=== PATIENT | male | born 1990 | race Caucasian/White ===

== ENCOUNTER 2017-09-03 15:32 | Inpatient (IN) | payer BC, SELFPAY ==
[2017-09-03 16:00] VITALS: PULSE 112; RESP 18; BMI 26.9
--- NOTE | 2017-09-03 16:21 | HP.PCM_ITS ---
Problem List (1) Acute opioid withdrawal Status: Acute (2) Heroin abuse Status: Chronic (3) Polysubstance abuse Status: Chronic (4) Nicotine abuse Status: Chronic (5) Hepatitis C Status: Chronic History of Present Illness Date of Admission: 09/03/17 Chief Complaint: heroin withdrawal The patient is a 26 year old M with a hx of heroin abuse and Hepatitis C who presents to the hospital via the medical stabilization program in acute heroin withdrawal. He last went through a rehab program in [place] in 2015 and relapsed soon after. He has been injective 1.5-2.0 grams per day IV in his arms and left neck. He last used 0.5 grams on 09/01/17 about 2200. He also smokes 1 ppd and desires a patch. He occasionally uses crack - last use 09/01/2017. He occsaionally uses benzos but has not done so for months. He rarely drinks. His current withdrawal symptoms include nausea, vomiting, shakes, anxiety, restless legs, leg cramps, abdominal pain, chills. He is requesting detox and plans to go from here to the [facility] program. He does have a hx of hep C and has never been treated. He does not take any medications. [] Past Medical History Past Medical History (Chronic Problems): Chronic Problems Heroin abuse (Chronic) Polysubstance abuse (Chronic) Nicotine abuse (Chronic) Hepatitis C (Chronic) Allergies No Known Allergies Allergy (Verified 09/03/17 16:03) Psychiatric History: No pertinent psych hx Lives: With Family Smoking Status: Current every day smoker Tobacco Use: Cigarettes Alcohol: Occasional Drugs: Cocaine, Heroin Review of Systems Constitutional: Denies: Chills, Fever, Weight Change HEENT: Denies: Head Aches, Sinus Congestion, Sinus Drainage Cardiovascular: Denies: Chest Pain, Palpitations Respiratory: Denies: Cough, Shortness of breath at rest, Sputum production Gastrointestinal: Denies: Abdominal Pain, Nausea, Vomiting Genitourinary: Denies: Dysuria Musculoskeletal: Denies: Joint Pain, Joint Tenderness Skin: Reports: Wounds - track gutierrez without acute inflammation BL arms and left neck. Denies: Rash Neurological: Denies: Numbness, Tingling, Focal weakness Psychiatric: Denies: Anxiety, Depression, Homicidal Ideations, Suicidal Ideations Hematologic/ Lymphatic: Denies: Easy Bruising, Easy Bleeding VTE Information - Inpt Only VTE Present on Admission: No VTE Mechan Device Prophylaxis: None VTE Pharm Prophylaxis ordered?: No Reason prophylaxis not ordered:: Procedure Not Indicated Patient Problems: Active and Suspected Problems Acute opioid withdrawal (Acute) - Physical Exam General: Alert, Oriented x3, Cooperative HEENT: Atraumatic, PERRLA, EOMI, Normocephalic Neck: Supple, No JVD, Negative Carotid Bruits Lungs: Clear to auscultation, Normal air movement Cardiovascular: Regular rate, No murmurs Abdomen: Bowel Sounds Present, Soft, Non Tender Extremities: No edema, Capillary Refill Less than 3 Seconds, - - BL track gutierrez no acute inflammation BL arms, left neck. mildly indurated. Skin: No rashes, No breakdown Musculoskeletal: No Tenderness to Palpation of Joints or Extremities Neurological: Cranial nerves II-XII grossly intact Psych/Mental Status: Normal Affect, Appropriate, Alert and oriented to time, place, person, mood and affect Weight: 78.018 kg Body Mass Index (BMI) 26.9 Assessment/Plan Active and Suspected Problems Acute opioid withdrawal (Acute) 1. Acute heroin withdrawal - initiate medical stabilization protocol. Current symptoms include anxiety, chills, leg pain and RLS, nausea, vomiting, diarrhea. 1.5-2.0 g / day IV user. No infected areas. Last use 0.5g 2200 on 09.01.2017. 2. Polysubstance abuse - nicotine (patch), crack, benzos. 3. Hep C - never treated. Will need to remain sober to pursue treatment. DVT ppx: early ambulation [facility] plannin program Medical stabilization day 1 . This patient was seen by Eduardo Casey PA-C under the supervision of Dr. Torres.
[2017-09-03 16:25] VITALS: BP 138/90; PULSE 115; RESP 18; TEMP 36.9; O2SAT 98
[2017-09-03 16:27] VITALS: BP 138/90; PULSE 115; RESP 18; TEMP 36.9
[2017-09-03] MEDS: Ibuprofen 600 MG Tablet PO (16:52)
[2017-09-03] MEDS: Dicyclomine 10 MG Capsule 20 MG PO (16:53)
[2017-09-03] MEDS: Buprenorphine HCl 2 MG TAB.SUBL SL (16:55)
[2017-09-03 17:08] LABS: Absolute Lymphocyte Count 1.39 X10^3/ul (0.83-4.51); Absolute Neutrophil Count 6.3 X10^3/uL (2.0-7.7); Basophil# 0.04 X10^3/uL; Basophil% 0.5 % (0-1); Eosinophil# 0.02 X10^3/uL; Eosinophils% 0.2 % (0-5); Hematocrit 44.7 % (40-54); Lymphocyte # 1.39 X10^3/ul (4.0); Lymphocyte % 17.1 % (19-41); Mean Corp Hgb Conc 35.8 g/gl (32-36); Mean Corpuscular Hgb 31.9 pg (27.0-32.0); Mean Corpuscular Volume 89.2 fL (80-94); Mean Platelet Vol. 10.5 fl (6.2-12.0); Monocyte# 0.43 X10^3/uL; Monocyte% 5.3 % (0-10); Neutrophil # 6.26 X10^3/uL (2.7-7.7); Neutrophil % 76.8 % (47-70); Platelet Count 277 K/mm3 (150-450); RBC Distribution Width CV 12.1 % (11.6-14.6); RBC Distribution Width SD 38.7 fl (35.1-43.9); Red Blood Count 5.01 M/mm3 (4.6-6.2); White Blood Count 8.2 K/mm3 (4.4-11.0)
[2017-09-03 17:21] LABS: POSITIVE COUNT NO; POSITIVE DIFFERENTIAL NO; POSITIVE MORPHOLOGY NO
[2017-09-03 17:51] LABS: AST(SGOT) 35 U/L (15-37); Alanine Aminotransfer ALT/SGPT 59 U/L (16-61); Alkaline Phosphatase 68 U/L (45-117); Anion Gap 8 (5-15); BUN 10 mg/dL (7-18); BUN/Creat Ratio 10.7 RATIO (10-20); Chloride 106 mmol/L (98-107); Creatinine, Serum 0.93 mg/dL (0.70-1.30); EST Glomerular Filtration Rate 105 mL/min (>60); Est Glom Filt Rate - Afr Amer 127 mL/min (>60); Estimated Creatinine Clearance 113.52 ml/min; Globulin 4.1 g/dL (2.2-4.2); Glucose 155 mg/dL (74-106); Lipase 51 U/L (73-393); Potassium 3.1 mmol/L (3.5-5.1); Protein, Total 8.1 g/dL (6.4-8.2); Sodium Level 137 mmol/L (136-145)
[2017-09-03 18:00] VITALS: BP 131/78; PULSE 99; RESP 18; TEMP 36.9; O2SAT 98
[2017-09-03 18:14] LABS: Alcohol, Blood (Medical)-Serum < 3.0 mg/dL
[2017-09-03] MEDS: Pramipexole Di-HCl 0.25 MG Tablet PO (20:56)
[2017-09-03] MEDS: traZODone 50 MG Tablet PO (20:56)
[2017-09-03] MEDS: QUEtiapine 25 MG Tablet PO (20:57)
[2017-09-03 21:00] VITALS: BP 134/86; PULSE 104; RESP 16; TEMP 37.1
[2017-09-04] MEDS: Buprenorphine HCl 2 MG TAB.SUBL SL ×4 (00:37→23:09)
[2017-09-04 00:40] VITALS: BP 135/89; PULSE 90; RESP 16; TEMP 36.9
[2017-09-04] MEDS: cloNIDine HCl 0.1 MG Tablet PO ×2 (04:33→07:49)
[2017-09-04 04:34] VITALS: BP 116/71; PULSE 66; RESP 16; TEMP 36.2
[2017-09-04] MEDS: Methocarbamol 750 MG Tablet PO (07:49)
[2017-09-04] MEDS: Thiamine Hydrochloride 100 MG Tablet PO (07:50)
[2017-09-04] MEDS: Multivitamins,Ther W-Minerals Tablet 1 TABLET PO (07:50)
[2017-09-04] MEDS: Folic Acid 1 MG Tablet PO (07:50)
[2017-09-04 07:55] VITALS: BP 122/65; PULSE 60; RESP 16; TEMP 36.8; O2SAT 97
[2017-09-04 11:27] LABS: HIV - WCH Non-Reactive (Nonreactive)
--- NOTE | 2017-09-04 12:05 | CHAPLAIN ---
Type of Pastoral Visit _x__ Initial Visit ___ Follow-up Visit ___ On-call Visit ___ General Patient Visit ___ Spiritual Assessment ___ Family Conference ___ Bereavement ___ Rapid Response ___ Code Blue ___ Other (describe below) Pastoral Care Referral From _x__ Patient ___ Family ___ Nurse ___ Physician ___ Varitypist ___ Parks Recreation Coordinator ___ Other (describe below) Sacrament/Intervention _x__ Active listening ___ Anointing ___ Restorationist ___ Bereavement ___ Communion _x__ Roya exploration ___ _x__ Life review _x__ Prayer ___ Reconciliation ___ Sacrament of Sick _x__ Supportive presence ___ Wedding ___ Other (describe below) Pastoral Comments
[2017-09-04 12:15] VITALS: BP 126/78; PULSE 86; RESP 16; TEMP 36.9
[2017-09-04] MEDS: hydrOXYzine PAM 25 MG Capsule 50 MG PO (12:19)
[2017-09-04 13:31] LABS: Amphetamine Urine VISTA NEGATIVE (<1000 ng/mL); Barbiturate Urine VISTA NEGATIVE (< 200 ng/mL); Benzodiazepine Urine VISTA NEGATIVE (< 200 ng/mL); Cocaine Urine VISTA POSITIVE (< 300 ng/mL); Ecstacy Urine VISTA NEGATIVE (< 500 ng/mL); Methadone Urine VISTA NEGATIVE (< 300 ng/mL); PCP Urine VISTA NEGATIVE (< 25 ng/mL); THC Urine VISTA POSITIVE (< 50 ng/mL); Vista UDS pH Range 6
--- NOTE | 2017-09-04 14:54 | PN_ITS ---
Patient Problems: Active and Suspected Problems Acute opioid withdrawal (Acute) Subjective: Patient resting comfortably in bed NAD. Withdrawal symptoms currently well controlled. Still somewhat restless and anxious. No irritation at injection points. No fever or chills. No nausea and vomiting so far today. - Physical Exam General: Alert, Oriented x3, Cooperative HEENT: Atraumatic, PERRLA, EOMI, Normocephalic Neck: Supple, No JVD, Negative Carotid Bruits Lungs: Clear to auscultation, Normal air movement Cardiovascular: Regular rate, No murmurs Abdomen: Bowel Sounds Present, Soft, Non Tender Extremities: No edema, Capillary Refill Less than 3 Seconds Skin: No rashes, No breakdown Musculoskeletal: No Tenderness to Palpation of Joints or Extremities Neurological: Cranial nerves II-XII grossly intact Psych/Mental Status: Normal Affect, Appropriate, Alert and oriented to time, place, person, mood and affect Vital Signs Temp Pulse Resp BP Pulse Ox 98.4 F 86 16 126/78 H 97 09/04/17 12:15 09/04/17 12:15 09/04/17 12:15 09/04/17 12:15 09/04/17 07:55 Oxygen Delivery Method Room Air Weight: 78.018 kg Body Mass Index (BMI) 26.9 Intake and Output for Last 24 Hours 09/02/17 09/03/17 09/04/17 23:59 23:59 23:59 Intake Total 1400 / 1400 400 / 400 Balance 1400 / 1400 400 / 400 Laboratory Tests Past 24 Hrs 09/03/17 09/03/17 09/03/17 16:50 16:50 16:50 WBC 8.2 RBC 5.01 Hgb 16.0 Hct 44.7 MCV 89.2 MCH 31.9 MCHC 35.8 RDW 12.1 RDW Differential 38.7 Plt Count 277 MPV 10.5 Immature Gran % (Auto) 0.100 Neut % (Auto) 76.8 H Lymph % (Auto) 17.1 L [place] % (Auto) 5.3 Eos % (Auto) 0.2 Baso % (Auto) 0.5 Absolute Neuts (auto) 6.3 Absolute Lymphs (auto) 1.39 Total Counted Not Reportable Sodium Potassium Chloride Carbon Dioxide Anion Gap BUN Creatinine Estim Creat Clear Calc Est GFR (MDRD) Af Amer Est GFR (MDRD) Non-Af BUN/Creatinine Ratio Glucose Calcium Total Bilirubin AST ALT Alkaline Phosphatase Total Protein Albumin Globulin Albumin/Globulin Ratio Lipase Urine Opiates Screen Urine Methadone Screen Ur Barbiturates Screen Ur Phencyclidine Scrn Ur Amphetamines Screen U Methamphetamin-MDMA U Benzodiazepines Scrn Urine Cocaine Screen U Cannabinoids Screen Ur Drug Screen Comment Ethyl Alcohol Hepatitis A IgM Ab Pending Hepatitis A Ab Total Pending Hep Bs Antigen Pending Hep B Core Total Ab Pending Hep B Core IgM Ab Pending Hepatitis C Comment Pending HIV 1&2 Antibody Non-Reactive 09/03/17 09/03/17 09/04/17 16:50 16:50 12:20 WBC RBC Hgb Hct MCV MCH MCHC RDW RDW Differential Plt Count MPV Immature Gran % (Auto) Neut % (Auto) Lymph % (Auto) [place] % (Auto) Eos % (Auto) Baso % (Auto) Absolute Neuts (auto) Absolute Lymphs (auto) Total Counted Sodium 137 Potassium 3.1 L Chloride 106 Carbon Dioxide 23.0 Anion Gap 8 BUN 10 Creatinine 0.93 Estim Creat Clear Calc 113.52 Est GFR (MDRD) Af Amer 127 Est GFR (MDRD) Non-Af 105 BUN/Creatinine Ratio 10.7 Glucose 155 H Calcium 9.0 Total Bilirubin 0.60 AST 35 ALT 59 Alkaline Phosphatase 68 Total Protein 8.1 Albumin 4.0 Globulin 4.1 Albumin/Globulin Ratio 1.0 Lipase 51 L Urine Opiates Screen POSITIVE H Urine Methadone Screen NEGATIVE Ur Barbiturates Screen NEGATIVE Ur Phencyclidine Scrn NEGATIVE Ur Amphetamines Screen NEGATIVE U Methamphetamin-MDMA NEGATIVE U Benzodiazepines Scrn NEGATIVE Urine Cocaine Screen POSITIVE H U Cannabinoids Screen POSITIVE H Ur Drug Screen Comment Ethyl Alcohol < 3.0 Hepatitis A IgM Ab Hepatitis A Ab Total Hep Bs Antigen Hep B Core Total Ab Hep B Core IgM Ab Hepatitis C Comment HIV 1&2 Antibody Medical Necessity - Tobacco Use Smoking Status: Current every day smoker Tobacco Use: Cigarettes Assessment/Plan Active and Suspected Problems Acute opioid withdrawal (Acute) 1. Acute heroin withdrawal - initiate medical stabilization protocol. Current symptoms include anxiety, restlessness. 1.5-2.0 g / day IV user. No infected areas. Last use 0.5g 2200 on 09.01.2017. 2. Polysubstance abuse - nicotine (patch), crack, benzos. 3. Hep C - never treated. Will need to remain sober to pursue treatment. Hep panel pending. 4. hypokalemia probably 2/2 vomiting/diarrhea - replete. 5. Hyperglycemia - check a1c. TB test ordered for 180 admittance. DVT ppx: early ambulation [facility] plannin program Medical stabilization day 2 of 4. This patient was seen by Eduardo Casey PA-C under the supervision of Dr. Cabral.
[2017-09-04 16:12] LABS: Hemoglobin A1c 4.9 % (4.2-6.3)
[2017-09-04 16:22] VITALS: BP 127/64; PULSE 77; RESP 16; TEMP 37.2
[2017-09-04 21:14] VITALS: BP 138/81; PULSE 84; RESP 16; TEMP 36.6
[2017-09-04] MEDS: Ibuprofen 600 MG Tablet PO (21:21)
[2017-09-04] MEDS: Pramipexole Di-HCl 0.25 MG Tablet PO (21:22)
[2017-09-04] MEDS: traZODone 50 MG Tablet PO (23:09)
[2017-09-05 04:10] LABS: HEPATITIS B SURFACE AG Negative (Negative); Hepatitis A IgM Antibody Negative (Negative); Hepatitis B Core AB IgM Negative (Negative); Hepatitis B Core Ab Total Positive (Negative); Hepatitis C Ab >11.0 s/co ratio (0.0-0.9)
[2017-09-05 05:23] VITALS: BP 114/66; PULSE 66; RESP 16; TEMP 36.4
[2017-09-05 06:21] LABS: Anion Gap 8 (5-15); BUN 13 mg/dL (7-18); BUN/Creat Ratio 14.5 RATIO (10-20); Calcium,Total 8.5 mg/dL (8.5-10.1); Chloride 109 mmol/L (98-107); EST Glomerular Filtration Rate 109 mL/min (>60); Est Glom Filt Rate - Afr Amer 132 mL/min (>60); Estimated Creatinine Clearance 117.31 ml/min; Glucose 94 mg/dL (74-106); Potassium 3.8 mmol/L (3.5-5.1); Sodium Level 140 mmol/L (136-145)
--- NOTE | 2017-09-05 06:59 | PCM.PROGNOTE ---
Patient Problems: Active and Suspected Problems Acute opioid withdrawal (Acute) Subjective: Afebrile, vital signs stable. Potassium is within normal limits today. HIV is nonreactive. Hepatitis panel is + for past exposure to A, B and C The hep B core antibody is + but the core IgM is negative. Hepatitis Bs AG is negative He has no complaints today. did not know that he was + for Hepatitis B. Objective: Alert and oriented ?3, no apparent distress, no tremors Lungs-clear to auscultation Heart-regular rate and rhythm, no murmur, no gallop, no rub No jaundice and no scleral icterus Abdomen-soft, nontender, nondistended, normal bowel sounds No petechiae, no areas of ecchymosis - Physical Exam Vital Signs Temp Pulse Resp BP Pulse Ox 97.5 F L 66 16 114/66 97 09/05/17 05:23 09/05/17 05:23 09/05/17 05:23 09/05/17 05:23 09/04/17 07:55 Oxygen Delivery Method Room Air Weight: 172 lb 0.004 oz Body Mass Index (BMI) 26.9 Intake and Output for Last 24 Hours 09/03/17 09/04/17 09/05/17 23:59 23:59 23:59 Intake Total 1400 / 1400 1200 / 1200 Balance 1400 / 1400 1200 / 1200 Laboratory Tests Past 24 Hrs 09/03/17 09/03/17 09/04/17 16:50 16:50 12:20 Sodium Potassium Chloride Carbon Dioxide Anion Gap BUN Creatinine Estim Creat Clear Calc Est GFR (MDRD) Af Amer Est GFR (MDRD) Non-Af BUN/Creatinine Ratio Glucose Hemoglobin A1c 4.9 Calcium Urine Opiates Screen POSITIVE H Urine Methadone Screen NEGATIVE Ur Barbiturates Screen NEGATIVE Ur Phencyclidine Scrn NEGATIVE Ur Amphetamines Screen NEGATIVE U Methamphetamin-MDMA NEGATIVE U Benzodiazepines Scrn NEGATIVE Urine Cocaine Screen POSITIVE H U Cannabinoids Screen POSITIVE H Ur Drug Screen Comment HIV 1&2 Antibody Non-Reactive 09/05/17 05:40 Sodium 140 Potassium 3.8 Chloride 109 H Carbon Dioxide 23.0 Anion Gap 8 BUN 13 Creatinine 0.90 Estim Creat Clear Calc 117.31 Est GFR (MDRD) Af Amer 132 Est GFR (MDRD) Non-Af 109 BUN/Creatinine Ratio 14.5 Glucose 94 Hemoglobin A1c Calcium 8.5 Urine Opiates Screen Urine Methadone Screen Ur Barbiturates Screen Ur Phencyclidine Scrn Ur Amphetamines Screen U Methamphetamin-MDMA U Benzodiazepines Scrn Urine Cocaine Screen U Cannabinoids Screen Ur Drug Screen Comment HIV 1&2 Antibody Medical Necessity - Tobacco Use Smoking Status: Current every day smoker Tobacco Use: Cigarettes Assessment/Plan Active and Suspected Problems Acute opioid withdrawal (Acute) Impressions 1. acute opiate withdrawal 2. polysubstance abuse 3. Hep C and Hep B positive. Has never been treated 4. tobacco dependence continue the [facility] protocol for opiate withdrawal I answered his questions about Hep B and C and advised him to always use condoms and NOT to share needles ever. I also advised that if he has been free of drugs for at least a year to follow up with a ID doctor for treatment. Code Visit Inpatient E&M: 11059 Subs Hosp L2
[2017-09-05] MEDS: Folic Acid 1 MG Tablet PO (07:52)
[2017-09-05] MEDS: Buprenorphine HCl 2 MG TAB.SUBL SL ×2 (07:53→20:15)
[2017-09-05] MEDS: Multivitamins,Ther W-Minerals Tablet 1 TABLET PO (07:53)
[2017-09-05] MEDS: Thiamine Hydrochloride 100 MG Tablet PO (07:53)
[2017-09-05 10:00] VITALS: BP 110/68; PULSE 57; RESP 18; TEMP 36.5
[2017-09-05 14:49] LABS: Hep B Surface Antibodies Reactive (.)
[2017-09-05 14:51] LABS: Hepatitis A AB, Total Positive (Negative)
[2017-09-05 15:17] VITALS: BP 144/85; PULSE 84; RESP 18; TEMP 37.1
--- NOTE | 2017-09-05 15:23 | CHAPLAIN ---
Type of Pastoral Visit ___ Initial Visit _x__ Follow-up Visit ___ On-call Visit ___ General Patient Visit ___ Spiritual Assessment ___ Family Conference ___ Bereavement ___ Rapid Response ___ Code Blue ___ Other (describe below) Pastoral Care Referral From _x__ Patient ___ Family ___ Nurse ___ Physician ___ Prover ___ Vascular Manager ___ Other (describe below) Sacrament/Intervention _x__ Active listening ___ Anointing ___ Latter-Day ___ Bereavement ___ Communion ___ Roya exploration ___ ___ Life review ___ Prayer ___ Reconciliation ___ Sacrament of Sick _x__ Supportive presence ___ Wedding ___ Other (describe below) Pastoral Comments
--- NOTE | 2017-09-05 15:51 | NURSING ---
patient to be picked up Saturday at 1400 by [facility]
[2017-09-05 16:00] VITALS: RESP 18
[2017-09-05 20:18] VITALS: BP 142/86; PULSE 89; RESP 16; TEMP 37.1
[2017-09-05] MEDS: QUEtiapine 25 MG Tablet PO (21:56)
[2017-09-05] MEDS: traZODone 50 MG Tablet PO (21:56)
[2017-09-06 08:45] VITALS: BP 115/70; PULSE 90; RESP 14; TEMP 36.8
[2017-09-06] MEDS: Folic Acid 1 MG Tablet PO (08:48)
[2017-09-06] MEDS: Buprenorphine HCl 2 MG TAB.SUBL SL (08:48)
[2017-09-06] MEDS: Thiamine Hydrochloride 100 MG Tablet PO (08:48)
[2017-09-06] MEDS: Multivitamins,Ther W-Minerals Tablet 1 TABLET PO (08:49)
--- NOTE | 2017-09-06 12:52 | PCM.DC ---
- Discharge Diagnoses Current Active Problems: Current Active and Chronic Problems Acute opioid withdrawal (Acute) Heroin abuse (Chronic) Polysubstance abuse (Chronic) Nicotine abuse (Chronic) Hepatitis C (Chronic) You will use the following diet at home:: No restrictions Your liquids should be the consistency of: Regular/Thin, Honey Thick Discharge Activity: Return to Normal Activity Call your doctor if you observe: Fever of 101 or Higher Additional Instructions: You have antibody to hepatitis A, B and C in your blood. B and C can both lead to cirrhosis and liver cancer. You MUST be clean for a year before an infectious disease doctot will treat you for hep C. The HIV test was negative. There are other communicable types of hepatitis so DO NOT SHARE NEEDLES and ALWAYS USE A CONDOM with sexual intercourse. BE safe and Good luck to you. Pending Tests on Discharge: none Allergies/Adverse Reactions: Allergies No Known Allergies Allergy (Verified 09/03/17 16:03) Proposed Discharge Date: 09/06/17
--- NOTE | 2017-09-06 13:16 | DS.PCM_ITS ---
Discharge Date and Diagnosis - Problem List Patient Problems: Active and Suspected Problems Acute opioid withdrawal (Acute) Date of Admission: 09/03/17 Date of Discharge: 09/06/17 - Primary Discharge Diagnosis Active and Suspected Problems Acute opioid withdrawal (Acute) - Secondary Discharge Diagnosis Chronic Problems History of hepatitis A (Chronic) Hepatitis B antibody positive (Chronic) Heroin abuse (Chronic) Polysubstance abuse (Chronic) Nicotine abuse (Chronic) Hepatitis C antibody + (Chronic) Hospital Course and Treatment Imaging Results: Laboratory Tests 09/03/17 09/03/17 09/03/17 16:50 16:50 16:50 WBC 8.2 RBC 5.01 Hgb 16.0 Hct 44.7 MCV 89.2 MCH 31.9 MCHC 35.8 RDW 12.1 RDW Differential 38.7 Plt Count 277 MPV 10.5 Immature Gran % (Auto) 0.100 Neut % (Auto) 76.8 H Lymph % (Auto) 17.1 L [place] % (Auto) 5.3 Eos % (Auto) 0.2 Baso % (Auto) 0.5 Absolute Neuts (auto) 6.3 Absolute Lymphs (auto) 1.39 Total Counted Not Reportable Sodium Potassium Chloride Carbon Dioxide Anion Gap BUN Creatinine Estim Creat Clear Calc Est GFR (MDRD) Af Amer Est GFR (MDRD) Non-Af BUN/Creatinine Ratio Glucose Hemoglobin A1c Calcium Total Bilirubin AST ALT Alkaline Phosphatase Total Protein Albumin Globulin Albumin/Globulin Ratio Lipase Urine Opiates Screen Urine Methadone Screen Ur Barbiturates Screen Ur Phencyclidine Scrn Ur Amphetamines Screen U Methamphetamin-MDMA U Benzodiazepines Scrn Urine Cocaine Screen U Cannabinoids Screen Ur Drug Screen Comment Ethyl Alcohol Hepatitis A IgM Ab Negative Hepatitis A Ab Total Positive H Hep Bs Antigen Negative Hep B Core Total Ab Positive H Hep B Core IgM Ab Negative Hepatitis C Ab Confirm >11.0 H HIV 1&2 Antibody Non-Reactive 09/03/17 09/03/17 09/03/17 16:50 16:50 16:50 WBC RBC Hgb Hct MCV MCH MCHC RDW RDW Differential Plt Count MPV Immature Gran % (Auto) Neut % (Auto) Lymph % (Auto) [place] % (Auto) Eos % (Auto) Baso % (Auto) Absolute Neuts (auto) Absolute Lymphs (auto) Total Counted Sodium 137 Potassium 3.1 L Chloride 106 Carbon Dioxide 23.0 Anion Gap 8 BUN 10 Creatinine 0.93 Estim Creat Clear Calc 113.52 Est GFR (MDRD) Af Amer 127 Est GFR (MDRD) Non-Af 105 BUN/Creatinine Ratio 10.7 Glucose 155 H Hemoglobin A1c 4.9 Calcium 9.0 Total Bilirubin 0.60 AST 35 ALT 59 Alkaline Phosphatase 68 Total Protein 8.1 Albumin 4.0 Globulin 4.1 Albumin/Globulin Ratio 1.0 Lipase 51 L Urine Opiates Screen Urine Methadone Screen Ur Barbiturates Screen Ur Phencyclidine Scrn Ur Amphetamines Screen U Methamphetamin-MDMA U Benzodiazepines Scrn Urine Cocaine Screen U Cannabinoids Screen Ur Drug Screen Comment Ethyl Alcohol < 3.0 Hepatitis A IgM Ab Hepatitis A Ab Total Hep Bs Antigen Hep B Core Total Ab Hep B Core IgM Ab Hepatitis C Ab Confirm HIV 1&2 Antibody 09/04/17 09/05/17 12:20 05:40 WBC RBC Hgb Hct MCV MCH MCHC RDW RDW Differential Plt Count MPV Immature Gran % (Auto) Neut % (Auto) Lymph % (Auto) [place] % (Auto) Eos % (Auto) Baso % (Auto) Absolute Neuts (auto) Absolute Lymphs (auto) Total Counted Sodium 140 Potassium 3.8 Chloride 109 H Carbon Dioxide 23.0 Anion Gap 8 BUN 13 Creatinine 0.90 Estim Creat Clear Calc 117.31 Est GFR (MDRD) Af Amer 132 Est GFR (MDRD) Non-Af 109 BUN/Creatinine Ratio 14.5 Glucose 94 Hemoglobin A1c Calcium 8.5 Total Bilirubin AST ALT Alkaline Phosphatase Total Protein Albumin Globulin Albumin/Globulin Ratio Lipase Urine Opiates Screen POSITIVE H Urine Methadone Screen NEGATIVE Ur Barbiturates Screen NEGATIVE Ur Phencyclidine Scrn NEGATIVE Ur Amphetamines Screen NEGATIVE U Methamphetamin-MDMA NEGATIVE U Benzodiazepines Scrn NEGATIVE Urine Cocaine Screen POSITIVE H U Cannabinoids Screen POSITIVE H Ur Drug Screen Comment Ethyl Alcohol Hepatitis A IgM Ab Hepatitis A Ab Total Hep Bs Antigen Hep B Core Total Ab Hep B Core IgM Ab Hepatitis C Ab Confirm HIV 1&2 Antibody none Operations: None Procedures: None Summary of Care Provided: The patient is a 26 year old M with a hx of heroin/polysubstance abuse, hepatitis C antibody positive and tobacco dependence who presented to the [facility] office at [facility] on 09/03/2017 requesting inpatient admission for medical stabilization for opiate withdrawal. He has never attended an inpatient drug rehab program in the past. He has been using heroin for 7 years but started with pills. He complained of abdominal cramping, generalized body aches and pains, rhinorrhea, fatigue, restless leg and sweating. He expressed an interest in an inpatient program at discharge. He was admitted to the hospital and started on the [facility] protocol for opiate withdrawal. A CBC was unremarkable. CMP showed a low potassium at 3.1 and this was supplemented and came up to 3.8. Random blood sugar was 155 but the hemoglobin A1c was 4.9. Urine drug screen was positive for opiates, cocaine and cannabinoids. Hepatitis panel was positive for hepatitis A antibody, + for hepatitis B core total antibody and negative for hepatitis B core IgM antibody, + for Hep C antibody. HIV was negative. The results of the hepatitis panel was shared with the patient and he was instructed to follow-up with an infectious disease doctor after he has been clean for 1 year. His inpatient stay was unremarkable he was discharged on 09/06/2017 in stable condition. Alert and oriented ?3, no apparent distress, no tremors Lungs-clear to auscultation Heart-regular rate and rhythm, no murmur, no gallop, no rub No jaundice and no scleral icterus Abdomen-soft, nontender, nondistended, normal bowel sounds No petechiae, no areas of ecchymosis This note was generated with [employer] dictation software. It may contain incorrect words, spelling, and punctuation that were not noted in checking the note before signing. Discharge Activity: Return to Normal Activity Call your doctor if you observe: Fever of 101 or Higher Disposition: Home - inpt rehab for drugs Minutes spent on discharge:: 30 Patient Condition:: Good Medical Necessity - Tobacco Use Smoking Status: Current every day smoker Tobacco Use: Cigarettes Meaningful Use Info Meaningful Use Diagnoses (Choose all that apply): None applicable Code Visit Inpatient E&M: 96511 Disch Hosp
[2017-09-06 13:26] VITALS: BP 136/84; PULSE 86; RESP 16; TEMP 36.8; O2SAT 98
== END 2017-09-06 13:26 | DRG 897 ==
PROVIDERS: Physician Assistant; Admitting Provider Family Medicine; Visit Provider Internal Medicine
DX: F11.23 Opioid dependence with withdrawal (principal); B19.10 Unspecified viral hepatitis B without hepatic coma; Z86.19 Personal history of other infectious and parasitic diseases; E87.6 Hypokalemia; F13.10 Sedative, hypnotic or anxiolytic abuse, uncomplicated; F14.10 Cocaine abuse, uncomplicated; R73.9 Hyperglycemia, unspecified; B19.20 Unspecified viral hepatitis C without hepatic coma; F17.210 Nicotine dependence, cigarettes, uncomplicated
CPT/HCPCS: 36415; 80048; 80053; 80307; 80320; 83036; 83690; 85025; 86703; 86704; 86705; 86706; 86708; 86709; 86803; 87340; 97802; G0480

== ENCOUNTER 2018-03-11 17:23 | Observation (INO) | payer MEDICAID, SELFPAY ==
[2017-09-03 16:00] VITALS: BMI 26.9
[2018-03-11 16:47] VITALS: BMI 27.8
[2018-03-11 17:06] VITALS: BP 118/72; PULSE 80; RESP 16; TEMP 36.7
[2018-03-11] MEDS: chlordiazePOXIDE 25 MG Capsule PO ×2 (17:59→21:24)
[2018-03-11] MEDS: Buprenorphine HCl 2 MG TAB.SUBL SL (17:59)
[2018-03-11] MEDS: Methocarbamol 750 MG Tablet PO (18:09)
[2018-03-11] MEDS: cloNIDine HCl 0.1 MG Tablet PO (18:09)
[2018-03-11] MEDS: Pramipexole Di-HCl 0.25 MG Tablet PO (18:09)
[2018-03-11 18:21] LABS: Absolute Lymphocyte Count 2.25 X10^3/ul (0.83-4.51); Absolute Neutrophil Count 7.3 X10^3/uL (2.0-7.7); Basophil# 0.08 X10^3/uL; Basophil% 0.7 % (0-1); Eosinophil# 0.73 X10^3/uL; Eosinophils% 6.4 % (0-5); Hematocrit 44.6 % (40-54); Hemoglobin 15.3 g/dl (13.0-16.5); Lymphocyte # 2.25 X10^3/ul (4.0); Lymphocyte % 19.8 % (19-41); Mean Corp Hgb Conc 34.3 g/gl (32-36); Mean Corpuscular Volume 93.3 fL (80-94); Mean Platelet Vol. 10.1 fl (6.2-12.0); Monocyte# 0.96 X10^3/uL; Monocyte% 8.5 % (0-10); Neutrophil # 7.32 X10^3/uL (2.7-7.7); Neutrophil % 64.4 % (47-70); Platelet Count 237 K/mm3 (150-450); RBC Distribution Width CV 12.1 % (11.6-14.6); RBC Distribution Width SD 40.5 fl (35.1-43.9); Red Blood Count 4.78 M/mm3 (4.6-6.2); White Blood Count 11.4 K/mm3 (4.4-11.0)
[2018-03-11 18:25] LABS: POSITIVE COUNT NO; POSITIVE DIFFERENTIAL NO; POSITIVE MORPHOLOGY NO
[2018-03-11 18:31] LABS: Prothrombin Time (Protime)PT. 12.8 SECONDS (11.7-14.9)
[2018-03-11 18:34] LABS: Alcohol, Blood (Medical)-Serum < 3.0 mg/dL
[2018-03-11 18:43] LABS: ALB/GLOB Ratio 0.8 RATIO (0.9-2.4); AST(SGOT) 42 U/L (15-37); Alanine Aminotransfer ALT/SGPT 58 U/L (16-61); Albumin, Serum 3.2 g/dL (3.2-5.0); Alkaline Phosphatase 96 U/L (45-117); Amylase 36 U/L (25-115); Anion Gap 6 (5-15); BUN 12 mg/dL (7-18); BUN/Creat Ratio 17.2 RATIO (10-20); Calcium,Total 8.8 mg/dL (8.5-10.1); Chloride 104 mmol/L (98-107); EST Glomerular Filtration Rate 145 mL/min (>60); Est Glom Filt Rate - Afr Amer 176 mL/min (>60); Estimated Creatinine Clearance 154.71 ml/min; Globulin 3.8 g/dL (2.2-4.2); Glucose 83 mg/dL (74-106); Lipase 109 U/L (73-393); Potassium 3.9 mmol/L (3.5-5.1); Sodium Level 136 mmol/L (136-145)
--- NOTE | 2018-03-11 18:44 | HP.PCM_ITS ---
Problem List (1) History of hepatitis A Status: Chronic (2) Hepatitis B antibody positive Status: Chronic (3) Acute opioid withdrawal Status: Acute (4) Heroin abuse Status: Chronic (5) Polysubstance abuse Status: Chronic (6) Nicotine abuse Status: Chronic (7) Hepatitis C Status: Chronic History of Present Illness Date of Admission: 03/11/18 Chief Complaint: Opioid withdrawal symptoms The patient is a 27 year old M with history of chronic heroin IV use, history of hepatitis C was admitted directly on the floor through [facility] for medical stabilization of opioid withdrawal syndrome. Patient is having symptoms of restlessness, anxiety, chills, muscle and bone pain, sweating and mild loose bowel movements/diarrhea. Patient had previous hospitalization for part withdrawal in 2016 at 2018. He had right leg venous thrombophlebitis this year about 3-4 months ago and took antibiotic but did not need IND. Denies any previous history of incision and drainage, infective endocarditis. [] He uses IV heroin half to 1 g daily since age of 19. Last use was yesterday. He also uses parts smoking on occasion since age of 15. Cigarette smoking 1 pack/day since age of 19. Denies drinking alcohol, crack cocaine, hallucinogens or benzodiazepines. Past Medical History Past Medical History (Chronic Problems): Chronic Problems History of hepatitis A (Chronic) Hepatitis B antibody positive (Chronic) Heroin abuse (Chronic) Polysubstance abuse (Chronic) Nicotine abuse (Chronic) Hepatitis C (Chronic) Allergies No Known Allergies Allergy (Verified 09/03/17 16:03) Psychiatric History: No pertinent psych hx Smoking Status: Current every day smoker Tobacco Use: Cigarettes - *Family History Paternal History Items: No pertinent history Review of Systems Constitutional: Reports: Chills, Malaise, Weakness HEENT: Denies: Head Aches, Sinus Congestion, Sinus Drainage Cardiovascular: Denies: Chest Pain, Palpitations Respiratory: Denies: Cough, Shortness of breath at rest, Sputum production Gastrointestinal: Denies: Abdominal Pain, Nausea, Vomiting Genitourinary: Denies: Dysuria Musculoskeletal: Reports: Joint Pain, Leg Pain, Muscle pain. Denies: Joint Tenderness Skin: Reports: Rash. Denies: Wounds Neurological: Reports: Incoordination. Denies: Focal weakness, Numbness, Tingling Psychiatric: Reports: Anxiety. Denies: Depression, Homicidal Ideations, Suicidal Ideations Hematologic/ Lymphatic: Denies: Easy Bruising, Easy Bleeding VTE Information - Inpt Only VTE Present on Admission: No VTE Mechan Device Prophylaxis: None VTE Pharm Prophylaxis ordered?: No - Physical Exam General: Alert, Oriented x3, Cooperative HEENT: Atraumatic, PERRLA, EOMI, Normocephalic Neck: Supple, No JVD, Negative Carotid Bruits Lungs: Clear to auscultation, Normal air movement, No rhonchi, No wheeze, No rales Cardiovascular: Regular rate, Regular Rhythm, Normal S1, Normal S2, No murmurs Abdomen: Bowel Sounds Present, Soft, Non Tender, Non-Distended Extremities: No edema, Capillary Refill Less than 3 Seconds Skin: Rash Present - Needle track gutierrez present in both forearms and both lower legs along the great saphenous vein. No obvious abscess. Musculoskeletal: No Tenderness to Palpation of Joints or Extremities Neurological: Cranial nerves II-XII grossly intact Psych/Mental Status: Normal Affect, Appropriate Vital Signs Temp Pulse Resp BP 98.0 F 80 16 118/72 03/11/18 17:06 03/11/18 17:06 03/11/18 17:06 03/11/18 17:06 Weight: 182 lb 11.2 oz Body Mass Index (BMI) 27.8 Laboratory Tests Past 24 Hrs 03/11/18 03/11/18 03/11/18 18:02 18:02 18:02 WBC 11.4 H RBC 4.78 Hgb 15.3 Hct 44.6 MCV 93.3 MCH 32.0 MCHC 34.3 RDW 12.1 RDW Differential 40.5 Plt Count 237 MPV 10.1 Immature Gran % (Auto) 0.200 Neut % (Auto) 64.4 Lymph % (Auto) 19.8 [place] % (Auto) 8.5 Eos % (Auto) 6.4 H Baso % (Auto) 0.7 Absolute Neuts (auto) 7.3 Absolute Lymphs (auto) 2.25 Total Counted Not Reportable PT 12.8 INR 1.0 Sodium Pending Potassium Pending Chloride Pending Carbon Dioxide Pending Anion Gap Pending BUN Pending Creatinine Pending Est GFR (MDRD) Af Amer Pending Est GFR (MDRD) Non-Af Pending BUN/Creatinine Ratio Pending Glucose Pending Calcium Pending Total Bilirubin Pending AST Pending ALT Pending Alkaline Phosphatase Pending Total Protein Pending Albumin Pending Amylase Pending Lipase Pending Ethyl Alcohol 03/11/18 18:02 WBC RBC Hgb Hct MCV MCH MCHC RDW RDW Differential Plt Count MPV Immature Gran % (Auto) Neut % (Auto) Lymph % (Auto) [place] % (Auto) Eos % (Auto) Baso % (Auto) Absolute Neuts (auto) Absolute Lymphs (auto) Total Counted PT INR Sodium Potassium Chloride Carbon Dioxide Anion Gap BUN Creatinine Est GFR (MDRD) Af Amer Est GFR (MDRD) Non-Af BUN/Creatinine Ratio Glucose Calcium Total Bilirubin AST ALT Alkaline Phosphatase Total Protein Albumin Amylase Lipase Ethyl Alcohol < 3.0 Assessment/Plan All Active Problems Acute opioid withdrawal (Acute) The patient is a 27 year old M with history of chronic heroin IV use, history of hepatitis C was admitted directly on the floor through [facility] for medical stabilization of opioid withdrawal syndrome. Patient is having symptoms of restlessness, anxiety, chills, muscle and bone pain, sweating and mild loose bowel movements/diarrhea. Patient had previous hospitalization for part withdrawal in 2016 at 2018. He had right leg venous thrombophlebitis this year about 3-4 months ago and took antibiotic but did not need IND. Denies any previous history of incision and drainage, infective endocarditis. [] He uses IV heroin half to 1 g daily since age of 19. Last use was yesterday. He also uses parts smoking on occasion since age of 15. Cigarette smoking 1 pack/day since age of 19. Denies drinking alcohol, crack cocaine, hallucinogens or benzodiazepines. 1. Acute opioid withdrawal syndrome with history of chronic opioid/heroin use and dependence with frequent relapses: Patient is being admitted on regular MedSurg floor. Orders set for medical stabilization. Patient is on Librium scheduled and then taper and buprenorphine taper program. 2. Chronic hepatitis C: Outpatient evaluation and management. 3. Nicotine dependence and marijuana use: On nicotine patch. Counseling done for cessation of opioids any smoking. DVT prophylaxis: Low risk. Early ambulation encouraged. No prophylaxis indicated. Code Visit Inpatient E&M: 17265 In Hosp L3
[2018-03-11 21:20] VITALS: BP 126/69; PULSE 76; RESP 16; TEMP 36.6
[2018-03-11] MEDS: traZODone 50 MG Tablet PO (21:24)
[2018-03-12 01:55] VITALS: BP 114/59; PULSE 73; RESP 16; TEMP 36.6
[2018-03-12] MEDS: chlordiazePOXIDE 25 MG Capsule PO ×5 (01:59→17:26)
[2018-03-12] MEDS: Buprenorphine HCl 2 MG TAB.SUBL SL ×3 (01:59→17:23)
[2018-03-12] MEDS: cloNIDine HCl 0.1 MG Tablet PO ×3 (02:03→22:17)
--- NOTE | 2018-03-12 04:34 | NURSING ---
called to lab to check on pt UA and drug screen result not seen, states it might be misplaced and will check and call nurse back.
[2018-03-12 06:12] VITALS: BP 116/59; PULSE 84; RESP 18; TEMP 36.6
[2018-03-12 09:03] VITALS: BP 115/61; PULSE 76; RESP 18; TEMP 36.8
[2018-03-12] MEDS: hydrOXYzine PAM 25 MG Capsule 50 MG PO ×2 (09:06→17:27)
[2018-03-12] MEDS: Dicyclomine 10 MG Capsule 20 MG PO ×2 (09:06→17:25)
[2018-03-12] MEDS: Methocarbamol 750 MG Tablet PO ×2 (09:06→17:27)
--- NOTE | 2018-03-12 10:23 | PCM.PN.HOSP ---
Subjective: Patient seen and examined. He had an uneventful night and has no complaints. He denies any fever chills, chest pain or shortness of breath, increased sweating, palpitations, abdominal pain, any diarrhea vomiting. Review of systems otherwise negative. Labs and vitals reviewed. Patient states he plans on going to see a Dr Clark for vivitriol shots upon discharge. Vitals/I&O's: Vital Signs Temp Pulse Resp BP 98.2 F 76 18 115/61 03/12/18 09:03 03/12/18 09:03 03/12/18 09:03 03/12/18 09:03 Weight: 182 lb 11.2 oz Body Mass Index (BMI) 27.8 Intake and Output for Last 24 Hours 03/10/18 03/11/18 03/12/18 23:59 23:59 23:59 Intake Total 475 / 475 Balance 475 / 475 General: Alert, Oriented x3, Cooperative, No apparent distress HEENT: Atraumatic, PERRLA, EOMI, Normocephalic Oral: Moist Mucosa Neck: Supple, No JVD, Negative Carotid Bruits Lungs: Clear to auscultation, Normal air movement Cardiovascular: Regular rate, Regular Rhythm, Normal S1, Normal S2, No murmurs Abdomen: Bowel Sounds Present, Soft, Non Tender Extremities: No clubbing, No cyanosis, No edema, Capillary Refill Less than 3 Seconds Skin: No rashes, No breakdown Musculoskeletal: No Tenderness to Palpation of Joints or Extremities Lymphatic: No Cervical, Supraclavicular, or Inguinal Adenopathy Neurological: Cranial nerves II-XII grossly intact, Neuro grossly intact, Motor Exam 5/5 strength throughout Psych/Mental Status: Normal Affect, Appropriate, Alert and oriented to time, place, person, mood and affect Laboratory Results 03/11/18 18:02: WBC 11.4 H, RBC 4.78, Hgb 15.3, Hct 44.6, MCV 93.3, MCH 32.0, MCHC 34.3, RDW 12.1, RDW Differential 40.5, Plt Count 237, MPV 10.1, Immature Gran % (Auto) 0.200, Neut % (Auto) 64.4, Lymph % (Auto) 19.8, [place] % (Auto) 8.5, Eos % (Auto) 6.4 H, Baso % (Auto) 0.7, Absolute Neuts (auto) 7.3, Absolute Lymphs (auto) 2.25, Total Counted Not Reportable 03/11/18 18:02: PT 12.8, INR 1.0 03/11/18 18:02: Sodium 136, Potassium 3.9, Chloride 104, Carbon Dioxide 26.0, Anion Gap 6, BUN 12, Creatinine 0.70, Estim Creat Clear Calc 154.71, Est GFR (MDRD) Af Amer 176, Est GFR (MDRD) Non-Af 145, BUN/Creatinine Ratio 17.2, Glucose 83, Calcium 8.8, Total Bilirubin 0.40, AST 42 H, ALT 58, Alkaline Phosphatase 96, Total Protein 7.0, Albumin 3.2, Globulin 3.8, Albumin/Globulin Ratio 0.8 L, Amylase 36, Lipase 109 03/11/18 18:02: Ethyl Alcohol < 3.0 Current Medications Acetaminophen (Tylenol) 500 mg PO Q4H PRN PRN PRN Reason: Temp > 100.4 F Al Hydroxide/Mg Hydroxide (Mylanta Ii) 30 ml PO Q6H PRN PRN PRN Reason: dyspesia Bisacodyl (Dulcolax) 10 mg RECTAL DAILY PRN PRN Reason: Constipation Buprenorphine HCl (Buprenorphine Hcl) 4 mg SL Q8H KATHE; Taper Stop: 03/14/18 21:59 Last Admin: 03/12/18 09:05 Dose: 4 mg Chlordiazepoxide (Librium) 25 mg PO Q6H PRN PRN PRN Reason: Moderate-Severe Anxiety Chlordiazepoxide (Librium) 25 mg PO Q4H KATHE Stop: 03/12/18 14:01 Last Admin: 03/12/18 09:05 Dose: 25 mg Clonidine (Catapres) 0.1 mg PO Q2H PRN PRN PRN Reason: Hot/Cold Sweats or Anxiety Last Admin: 03/12/18 02:03 Dose: 0.1 mg Dicyclomine HCl (Bentyl) 20 mg PO Q6H PRN PRN PRN Reason: Abdomnial Discomfort Last Admin: 03/12/18 09:06 Dose: 20 mg Hydroxyzine HCl (Vistaril Vial) 50 mg IM Q6H PRN PRN PRN Reason: Breakthrough Anxiety Hydroxyzine Pamoate (Vistaril Pamoate Capsule) 50 mg PO Q6H PRN PRN PRN Reason: Mild Anxiety Last Admin: 03/12/18 09:06 Dose: 50 mg Ibuprofen (Motrin) 600 mg PO Q8H PRN PRN PRN Reason: Mild-Moderate Pain (1-5/10) Loperamide HCl (Imodium) 2 - 4 mg PO UD PRN PRN Reason: LOOSE STOOLS Methocarbamol (Methocarbamol) 750 mg PO Q6H PRN PRN PRN Reason: Muscle Aches Last Admin: 03/12/18 09:06 Dose: 750 mg Nicotine (Nicoderm Cq (Pbkc)) 21 mg TRANSDERM. DAILY KATHE Last Admin: 03/12/18 09:08 Dose: 21 mg Ondansetron HCl (Zofran Odt) 4 mg PO Q6H PRN PRN PRN Reason: NAUSEA Pramipexole Dihydrochloride (Mirapex) 0.25 mg PO Q12H PRN PRN PRN Reason: Restless Legs Last Admin: 03/11/18 18:09 Dose: 0.25 mg Senna (Senokot) 1 tablet PO QHS PRN PRN Reason: Constipation Trazodone HCl (Desyrel) 50 mg PO QHS KATHE Last Admin: 03/11/18 21:24 Dose: 50 mg Medical Necessity - Tobacco Use Smoking Status: Current every day smoker Tobacco Use: Cigarettes Assessment/Plan All Active Problems Acute opioid withdrawal (Acute) 1. Opiate withdrawal feels well. stable continue withdrawal protocol with buprenorphine nad librium taper 2. Hepatitis C infection. Treatment naive. To follow up with PCP and GI on outpatient basis. Counselled to quit using drugs in order to qualify for treatment 3. Nicotine dependence: counselled to quit smoking. Nicotine patch. 4. Polysubstance abuse: urine tox was positive for methamphetamines and marijuana. Counselled to quit DVT prophylaxis: encourage ambulation Disposition: says he plans to follow up with one Dr Clark for Vivitriol shots upon discharge. Code Visit Inpatient E&M: 51841 Subs Hosp L2
--- NOTE | 2018-03-12 10:28 | PN_ITS ---
Subjective: Patient seen and examined. He had an uneventful night and has no complaints. He denies any fever chills, chest pain or shortness of breath, increased sweating, palpitations, abdominal pain, any diarrhea vomiting. Review of systems otherwise negative. Labs and vitals reviewed. Patient states he plans on going to see a Dr Clark for vivitriol shots upon discharge. Vitals/I&O's: Vital Signs Temp Pulse Resp BP 98.2 F 76 18 115/61 03/12/18 09:03 03/12/18 09:03 03/12/18 09:03 03/12/18 09:03 Weight: 182 lb 11.2 oz Body Mass Index (BMI) 27.8 Intake and Output for Last 24 Hours 03/10/18 03/11/18 03/12/18 23:59 23:59 23:59 Intake Total 475 / 475 Balance 475 / 475 General: Alert, Oriented x3, Cooperative, No apparent distress HEENT: Atraumatic, PERRLA, EOMI, Normocephalic Oral: Moist Mucosa Neck: Supple, No JVD, Negative Carotid Bruits Lungs: Clear to auscultation, Normal air movement Cardiovascular: Regular rate, Regular Rhythm, Normal S1, Normal S2, No murmurs Abdomen: Bowel Sounds Present, Soft, Non Tender Extremities: No clubbing, No cyanosis, No edema, Capillary Refill Less than 3 Seconds Skin: No rashes, No breakdown Musculoskeletal: No Tenderness to Palpation of Joints or Extremities Lymphatic: No Cervical, Supraclavicular, or Inguinal Adenopathy Neurological: Cranial nerves II-XII grossly intact, Neuro grossly intact, Motor Exam 5/5 strength throughout Psych/Mental Status: Normal Affect, Appropriate, Alert and oriented to time, place, person, mood and affect Laboratory Results 03/11/18 18:02: WBC 11.4 H, RBC 4.78, Hgb 15.3, Hct 44.6, MCV 93.3, MCH 32.0, MCHC 34.3, RDW 12.1, RDW Differential 40.5, Plt Count 237, MPV 10.1, Immature Gran % (Auto) 0.200, Neut % (Auto) 64.4, Lymph % (Auto) 19.8, [place] % (Auto) 8.5, Eos % (Auto) 6.4 H, Baso % (Auto) 0.7, Absolute Neuts (auto) 7.3, Absolute Lymphs (auto) 2.25, Total Counted Not Reportable 03/11/18 18:02: PT 12.8, INR 1.0 03/11/18 18:02: Sodium 136, Potassium 3.9, Chloride 104, Carbon Dioxide 26.0, Anion Gap 6, BUN 12, Creatinine 0.70, Estim Creat Clear Calc 154.71, Est GFR (MDRD) Af Amer 176, Est GFR (MDRD) Non-Af 145, BUN/Creatinine Ratio 17.2, Glucose 83, Calcium 8.8, Total Bilirubin 0.40, AST 42 H, ALT 58, Alkaline Phosphatase 96, Total Protein 7.0, Albumin 3.2, Globulin 3.8, Albumin/Globulin Ratio 0.8 L, Amylase 36, Lipase 109 03/11/18 18:02: Ethyl Alcohol < 3.0 Current Medications Acetaminophen (Tylenol) 500 mg PO Q4H PRN PRN PRN Reason: Temp > 100.4 F Al Hydroxide/Mg Hydroxide (Mylanta Ii) 30 ml PO Q6H PRN PRN PRN Reason: dyspesia Bisacodyl (Dulcolax) 10 mg RECTAL DAILY PRN PRN Reason: Constipation Buprenorphine HCl (Buprenorphine Hcl) 4 mg SL Q8H KATHE; Taper Stop: 03/14/18 21:59 Last Admin: 03/12/18 09:05 Dose: 4 mg Chlordiazepoxide (Librium) 25 mg PO Q6H PRN PRN PRN Reason: Moderate-Severe Anxiety Chlordiazepoxide (Librium) 25 mg PO Q4H KATHE Stop: 03/12/18 14:01 Last Admin: 03/12/18 09:05 Dose: 25 mg Clonidine (Catapres) 0.1 mg PO Q2H PRN PRN PRN Reason: Hot/Cold Sweats or Anxiety Last Admin: 03/12/18 02:03 Dose: 0.1 mg Dicyclomine HCl (Bentyl) 20 mg PO Q6H PRN PRN PRN Reason: Abdomnial Discomfort Last Admin: 03/12/18 09:06 Dose: 20 mg Hydroxyzine HCl (Vistaril Vial) 50 mg IM Q6H PRN PRN PRN Reason: Breakthrough Anxiety Hydroxyzine Pamoate (Vistaril Pamoate Capsule) 50 mg PO Q6H PRN PRN PRN Reason: Mild Anxiety Last Admin: 03/12/18 09:06 Dose: 50 mg Ibuprofen (Motrin) 600 mg PO Q8H PRN PRN PRN Reason: Mild-Moderate Pain (1-510) Loperamide HCl (Imodium) 2 - 4 mg PO UD PRN PRN Reason: LOOSE STOOLS Methocarbamol (Methocarbamol) 750 mg PO Q6H PRN PRN PRN Reason: Muscle Aches Last Admin: 03/12/18 09:06 Dose: 750 mg Nicotine (Nicoderm Cq (Pbkc)) 21 mg TRANSDERM. DAILY KATHE Last Admin: 03/12/18 09:08 Dose: 21 mg Ondansetron HCl (Zofran Odt) 4 mg PO Q6H PRN PRN PRN Reason: NAUSEA Pramipexole Dihydrochloride (Mirapex) 0.25 mg PO Q12H PRN PRN PRN Reason: Restless Legs Last Admin: 03/11/18 18:09 Dose: 0.25 mg Senna (Senokot) 1 tablet PO QHS PRN PRN Reason: Constipation Trazodone HCl (Desyrel) 50 mg PO QHS KATHE Last Admin: 03/11/18 21:24 Dose: 50 mg Medical Necessity - Tobacco Use Smoking Status: Current every day smoker Tobacco Use: Cigarettes Assessment/Plan All Active Problems Acute opioid withdrawal (Acute) 1. Opiate withdrawal * feels well. stable * continue withdrawal protocol with buprenorphine nad librium taper * * 2. Hepatitis C infection. Treatment naive. To follow up with PCP and GI on outpatient basis. Counselled to quit using drugs in order to qualify for treatment 3. Nicotine dependence: counselled to quit smoking. Nicotine patch. 4. Polysubstance abuse: urine tox was positive for methamphetamines and marijuana. Counselled to quit DVT prophylaxis: encourage ambulation Disposition: says he plans to follow up with one Dr Clark for Rosie mcclellan upon discharge. Code Visit Inpatient E&M: 67088 Subs Hosp L2
[2018-03-12 11:27] VITALS: BP 124/76; PULSE 82; RESP 16; TEMP 36.7
[2018-03-12 13:42] LABS: Bacteria 0 SEEN /hpf (None Seen); Mucous, Urine 0 SEEN /hpf (<or=2+); Squamous Epithelial Cells - UA 0 SEEN /hpf (0-5); White Blood Cells 0 SEEN /hpf (0-5)
[2018-03-12 13:47] LABS: Color, Urine Yellow (Yellow); Glucose, Dipstick Normal (Normal); Ketone-Dipstick Negative (Negative); Leukocyte Esterase-Dipstick Negative /ul (Negative); Nitrite-Dipstick Negative (Negative); Occult Blood-Urine 10 /ul (Negative); Protein-Dipstick Negative (Negative); Urine Bilirubin Dipstick Negative (Negative); Urine Clarity Clear (Clear); Urine Urobilinogen Normal (Normal)
[2018-03-12 14:12] LABS: Amphetamine Urine VISTA NEGATIVE (<1000 ng/mL); Barbiturate Urine VISTA NEGATIVE (< 200 ng/mL); Benzodiazepine Urine VISTA POSITIVE (< 200 ng/mL); Cocaine Urine VISTA NEGATIVE (< 300 ng/mL); Ecstacy Urine VISTA NEGATIVE (< 500 ng/mL); Methadone Urine VISTA NEGATIVE (< 300 ng/mL); PCP Urine VISTA NEGATIVE (< 25 ng/mL); THC Urine VISTA NEGATIVE (< 50 ng/mL); Vista UDS pH Range 6
[2018-03-12 14:20] LABS: Red Blood Cells-Urine 0-5 SEEN /hpf (0-5)
[2018-03-12 17:21] VITALS: BP 119/75; PULSE 108; RESP 18; TEMP 37
[2018-03-12] MEDS: Pramipexole Di-HCl 0.25 MG Tablet PO (17:27)
[2018-03-12 22:16] VITALS: BP 134/87; PULSE 109; RESP 18; TEMP 36.7
[2018-03-12] MEDS: traZODone 50 MG Tablet PO (22:16)
[2018-03-12] MEDS: Ibuprofen 600 MG Tablet PO (22:16)
[2018-03-13 02:00] VITALS: BP 118/74; PULSE 85; RESP 16; TEMP 36.4
[2018-03-13] MEDS: Buprenorphine HCl 2 MG TAB.SUBL SL ×3 (02:04→22:05)
[2018-03-13 09:25] VITALS: BP 114/74; PULSE 77; RESP 18; TEMP 36.6; O2SAT 98
[2018-03-13] MEDS: hydrOXYzine PAM 25 MG Capsule 50 MG PO (09:29)
--- NOTE | 2018-03-13 09:40 | PCM.PN.HOSP ---
Subjective: Patient was seen and examined. No new complaints. No acute events overnight. Objective: Physical exam: General: Alert, Oriented x3, Cooperative, No apparent distress HEENT: Atraumatic, PERRLA, EOMI, Normocephalic Oral: Moist Mucosa Neck: Supple, No JVD, Negative Carotid Bruits Lungs: Clear to auscultation, Normal air movement Cardiovascular: Regular rate, Regular Rhythm, Normal S1, Normal S2, No murmurs Abdomen: Bowel Sounds Present, Soft, Non Tender Extremities: No clubbing, No cyanosis, No edema, Capillary Refill Less than 3 Seconds Skin: No rashes, No breakdown Musculoskeletal: No Tenderness to Palpation of Joints or Extremities Lymphatic: No Cervical, Supraclavicular, or Inguinal Adenopathy Neurological: Cranial nerves II-XII grossly intact, Neuro grossly intact, Motor Exam 5/5 strength throughout Psych/Mental Status: Normal Affect, Appropriate, Alert and oriented to time, place, person, mood and affect Vitals/I&O's: Vital Signs Temp Pulse Resp BP 97.8 F 77 18 114/74 03/13/18 09:25 03/13/18 09:25 03/13/18 09:25 03/13/18 09:25 Oxygen Delivery Method Room Air Weight: 82.871 kg Body Mass Index (BMI) 27.8 Intake and Output for Last 24 Hours 03/11/18 03/12/18 03/13/18 23:59 23:59 23:59 Intake Total 595 / 595 680 / 680 Output Total 300 / 300 Balance 295 / 295 680 / 680 Laboratory Results 03/12/18 13:35: Urine Opiates Screen NEGATIVE, Urine Methadone Screen NEGATIVE, Ur Barbiturates Screen NEGATIVE, Ur Phencyclidine Scrn NEGATIVE, Ur Amphetamines Screen NEGATIVE, U Methamphetamin-MDMA NEGATIVE, U Benzodiazepines Scrn POSITIVE H, Urine Cocaine Screen NEGATIVE, U Cannabinoids Screen NEGATIVE, Ur Drug Screen Comment 03/12/18 13:35: Urine Color Yellow, Urine Clarity Clear, Urine pH 7.0, Ur Specific [place] 1.010, Urine Protein Negative, Urine Glucose (UA) Normal, Urine Ketones Negative, Urine Occult Blood 10 H, Urine Nitrite Negative, Urine Bilirubin Negative, Urine Urobilinogen Normal, Ur Leukocyte Esterase Negative, Urine RBC 0-5 SEEN, Urine WBC 0 SEEN, Ur Squamous Epith Cells 0 SEEN, Urine Bacteria 0 SEEN, Urine Mucus 0 SEEN Current Medications Acetaminophen (Tylenol) 500 mg PO Q4H PRN PRN PRN Reason: Temp > 100.4 F Al Hydroxide/Mg Hydroxide (Mylanta Ii) 30 ml PO Q6H PRN PRN PRN Reason: dyspesia Bisacodyl (Dulcolax) 10 mg RECTAL DAILY PRN PRN Reason: Constipation Buprenorphine HCl (Buprenorphine Hcl) 2 mg SL Q8H KATHE; Taper Stop: 03/14/18 21:59 Last Admin: 03/13/18 09:29 Dose: 2 mg Chlordiazepoxide (Librium) 25 mg PO Q6H PRN PRN PRN Reason: Moderate-Severe Anxiety Last Admin: 03/12/18 17:26 Dose: 25 mg Clonidine (Catapres) 0.1 mg PO Q2H PRN PRN PRN Reason: Hot/Cold Sweats or Anxiety Last Admin: 03/12/18 22:17 Dose: 0.1 mg Dicyclomine HCl (Bentyl) 20 mg PO Q6H PRN PRN PRN Reason: Abdomnial Discomfort Last Admin: 03/12/18 17:25 Dose: 20 mg Hydroxyzine HCl (Vistaril Vial) 50 mg IM Q6H PRN PRN PRN Reason: Breakthrough Anxiety Hydroxyzine Pamoate (Vistaril Pamoate Capsule) 50 mg PO Q6H PRN PRN PRN Reason: Mild Anxiety Last Admin: 03/13/18 09:29 Dose: 50 mg Ibuprofen (Motrin) 600 mg PO Q8H PRN PRN PRN Reason: Mild-Moderate Pain (1-5/10) Last Admin: 03/12/18 22:16 Dose: 600 mg Loperamide HCl (Imodium) 2 - 4 mg PO UD PRN PRN Reason: LOOSE STOOLS Methocarbamol (Methocarbamol) 750 mg PO Q6H PRN PRN PRN Reason: Muscle Aches Last Admin: 03/12/18 17:27 Dose: 750 mg Nicotine (Nicoderm Cq (Pbkc)) 21 mg TRANSDERM. DAILY KATHE Last Admin: 03/13/18 09:30 Dose: 21 mg Ondansetron HCl (Zofran Odt) 4 mg PO Q6H PRN PRN PRN Reason: NAUSEA Pramipexole Dihydrochloride (Mirapex) 0.25 mg PO Q12H PRN PRN PRN Reason: Restless Legs Last Admin: 03/12/18 17:27 Dose: 0.25 mg Senna (Senokot) 1 tablet PO QHS PRN PRN Reason: Constipation Trazodone HCl (Desyrel) 50 mg PO QHS KATHE Last Admin: 03/12/18 22:16 Dose: 50 mg Medical Necessity - Tobacco Use Smoking Status: Current every day smoker Tobacco Use: Cigarettes Assessment/Plan All Active Problems Acute opioid withdrawal (Acute) 27-year-old male with past medical history of hepatitis C, polysubstance use comes in with acute opioid withdrawal symptoms for medical stabilization under the [facility] protocol. 1. Acute opiate withdrawal, stable, doing well, CIWA scores are low, continue on opiate withdrawal protocol 2. Polysubstance use, counseled to quit 3. Nicotine dependence, on nicotine patch, counseled to quit 4. Chronic hepatitis C, needs to follow-up with PCP in the outpatient 5. DVT prophylaxis with early ambulation 6. Disposition: DC possible tomorrow for outpatient [place] Code Visit Inpatient E&M: 91994 Subs Hosp L2
[2018-03-13 14:48] VITALS: BP 122/69; PULSE 103; RESP 18; TEMP 36.5; O2SAT 97
--- NOTE | 2018-03-13 15:00 | CHAPLAIN ---
Type of Pastoral Visit _x__ Initial Visit ___ Follow-up Visit ___ On-call Visit ___ General Patient Visit ___ Spiritual Assessment ___ Family Conference ___ Bereavement ___ Rapid Response ___ Code Blue ___ Other (describe below) Pastoral Care Referral From _x__ Patient ___ Family ___ Nurse ___ Physician ___ Staff Toxicologist ___ Security System Sales Consultant ___ Other (describe below) Sacrament/Intervention _x__ Active listening ___ Anointing ___ Voodoo ___ Bereavement ___ Communion ___ Roya exploration ___ _x__ Life review _x__ Prayer ___ Reconciliation ___ Sacrament of Sick _x__ Supportive presence ___ Wedding ___ Other (describe below) Pastoral Comments patient was seen at last admission by this leadership program internship; pt describes his current situation and relapse with new goal of getting clean; pt welcomes spiritual support
[2018-03-13 21:59] VITALS: BP 125/96; PULSE 99; RESP 16; TEMP 36.8
[2018-03-13] MEDS: traZODone 50 MG Tablet PO (22:05)
[2018-03-14 06:00] VITALS: BP 126/84; PULSE 86; RESP 16; TEMP 36.9
--- NOTE | 2018-03-14 08:25 | PCM.DC ---
- Discharge Diagnoses Reason(s) for Visit for Discharge Instructions: Acute opiate withdrawal You will use the following diet at home:: Regular Your food should be the consistency of: Regular Your liquids should be the consistency of: Regular/Thin Discharge Activity: Return to Normal Activity Additional Instructions: Follow-up with your outpatient rehab program including Vivitriol as scheduled. You are strongly advised to quit using drugs. Allergies/Adverse Reactions: Allergies No Known Allergies Allergy (Verified 09/03/17 16:03) Primary Care Physician: Care Physician,No Primary [Primary Care Provider] - Please follow up with your Primary Care Physician in: within 2 weeks Test Results: Test results from this visit will be discussed in further detail at your follow-up appointment, if applicable. Proposed Discharge Date: 03/14/18
--- NOTE | 2018-03-14 08:30 | DCINST_ITS ---
- Discharge Diagnoses Reason(s) for Visit for Discharge Instructions: Acute opiate withdrawal You will use the following diet at home:: Regular Your food should be the consistency of: Regular Your liquids should be the consistency of: Regular/Thin Discharge Activity: Return to Normal Activity Additional Instructions: Follow-up with your outpatient rehab program including Vivitriol as scheduled. You are strongly advised to quit using drugs. Allergies/Adverse Reactions: Allergies No Known Allergies Allergy (Verified 09/03/17 16:03) Primary Care Physician: Care Physician,No Primary [Primary Care Provider] - Please follow up with your Primary Care Physician in: within 2 weeks Test Results: Test results from this visit will be discussed in further detail at your follow- up appointment, if applicable. Proposed Discharge Date: 03/14/18
--- NOTE | 2018-03-14 08:30 | PCM.DC.SUM ---
Discharge Date and Diagnosis Date of Admission: 03/11/18 Date of Discharge: 03/14/18 - Primary Discharge Diagnosis Acute opiate withdrawal Nicotine dependence - Secondary Discharge Diagnosis Chronic Problems History of hepatitis A (Chronic) Hepatitis B antibody positive (Chronic) Heroin abuse (Chronic) Polysubstance abuse (Chronic) Nicotine abuse (Chronic) Hepatitis C (Chronic) Hospital Course and Treatment None Operations: None Procedures: None Summary of Care Provided: The patient is a 27 year old M with past medical history of polysubstance use who comes in with complaints of acute opioid withdrawal for medical stabilization the [facility] program. Patient was managed under the protocol successfully. No complaints. No acute events during his stay. He will be discharged to follow-up with his outpatient program. He plans on getting BP control from Dr. Clark in the outpatient. He has been encouraged to stop smoking and using illicit drugs. Subjective: The day of discharge, patient was seen and examined. Denied any new complaints. Denied any problems or dizziness or chest pain. Objective: Physical exam: General: Alert, Oriented x3, Cooperative, No apparent distress HEENT: Atraumatic, PERRLA, EOMI, Normocephalic Oral: Moist Mucosa Neck: Supple, No JVD, Negative Carotid Bruits Lungs: Clear to auscultation, Normal air movement Cardiovascular: Regular rate, Regular Rhythm, Normal S1, Normal S2, No murmurs Abdomen: Bowel Sounds Present, Soft, Non Tender Extremities: No clubbing, No cyanosis, No edema, Capillary Refill Less than 3 Seconds Skin: No rashes, No breakdown Musculoskeletal: No Tenderness to Palpation of Joints or Extremities Lymphatic: No Cervical, Supraclavicular, or Inguinal Adenopathy Neurological: Cranial nerves II-XII grossly intact, Neuro grossly intact, Motor Exam 5/5 strength throughout Psych/Mental Status: Normal Affect, Appropriate, Alert and oriented to time, place, person, mood and affect - Physical Exam Vital Signs Temp Pulse Resp BP Pulse Ox 98.5 F 86 16 126/84 H 97 03/14/18 06:00 03/14/18 06:00 03/14/18 06:00 03/14/18 06:00 03/13/18 14:48 Oxygen Delivery Method Room Air Weight: 82.871 kg Body Mass Index (BMI) 27.8 Intake and Output for Last 24 Hours 03/12/18 03/13/18 03/14/18 23:59 23:59 23:59 Intake Total 595 / 595 680 / 680 592 / 592 Output Total 300 / 300 Balance 295 / 295 680 / 680 592 / 592 Discharge Diet: No Restrictions Discharge Activity: Return to Normal Activity Primary Care Physician: Care Physician,No Primary [Primary Care Provider] - Please follow up with your Primary Care Physician in: within 2 weeks Disposition: Home Minutes spent on discharge:: 25 Patient Condition:: Stable Medical Necessity - Tobacco Use Smoking Status: Current every day smoker Tobacco Use: Cigarettes Meaningful Use Info Meaningful Use Diagnoses (Choose all that apply): None applicable Code Visit Inpatient E&M: 95244 Disch Hosp
[2018-03-14 08:38] VITALS: BP 115/76; PULSE 82; RESP 18; TEMP 36.6; O2SAT 98
[2018-03-14 10:00] VITALS: BP 115/76; PULSE 82; RESP 18; TEMP 36.6
[2018-03-14] MEDS: Buprenorphine HCl 2 MG TAB.SUBL SL (10:03)
[2018-03-14 11:05] VITALS: BP 115/76; PULSE 82; RESP 18; TEMP 36.6; O2SAT 98
--- OUTSIDE RECORDS SUMMARY | 2018-05-07 09:12 | XMS RPT_ITS ---
:1990 Author Organization [place] Support Name Relationship Address Phone MASOOD PEDERSEN Unavailable [address] + [place] [address] SLAVA, SYLVIA Unavailable [address] + [place] [address] UE Unavailable Unavailable Unavailable MASOOD PEDERSEN Unavailable [address] + [place] [address] SLAVA, SYLVIA Unavailable [address] + [place] [address] UE Unavailable Unavailable Unavailable MASOOD PEDERSEN Unavailable [address] + [place] [address] PEDERSEN, SYLVIA Unavailable [address] + [place] [address] UE Unavailable Unavailable Unavailable MASOOD PEDERSEN Unavailable [address] + [place] [address] PEDERSEN, SYLVIA Unavailable [address] + [place] [address] UE Unavailable Unavailable Unavailable MASOOD PEDERSEN Unavailable [address] + [place] [address] PEDERSEN, SYLVIA Unavailable [address] + [place] [address] UE Unavailable Unavailable Unavailable GORDY PEDERSEN Unavailable Unavailable + NOT GIVEN Unavailable Unavailable Unavailable GORDY PEDERSEN Unavailable [address] + [place] [address] MASOOD PEDERSEN Unavailable [address] + [place] [address] SLAVA, SYLVIA Unavailable [address] + [place] [address] UE Unavailable Unavailable Unavailable PEDERSEN, MASOOD Unavailable [address] + [place] [address] PEDERSEN, SYLVIA Unavailable [address] + [place] [address] UE Unavailable Unavailable Unavailable PEDERSEN, MASOOD Unavailable [address] + [place] [address] PEDERSEN, SYLVIA Unavailable [address] + [place] [address] UE Unavailable Unavailable Unavailable PEDERSEN, MASOOD Unavailable [address] + [place] [address] PEDERSEN, SYLVIA Unavailable [address] + [place] [address] UE Unavailable Unavailable Unavailable PEDERSEN, MASOOD Unavailable [address] + [place] [address] PEDERSEN, SYLVIA Unavailable [address] + [place] [address] UE Unavailable Unavailable Unavailable Care Team Providers Name Role Phone OLEG FRAUSTO Attending Unavailable JUNAID MICHELLE Primary Care Unavailable White, Tamara Admitting Unavailable White, Tamara Referring Unavailable Sementi, Ayse Attending Unavailable White, Tamara Admitting Unavailable White, Tamara Referring Unavailable White, Tamara Consulting Unavailable White, Tamara Attending Unavailable White, Tamara Admitting Unavailable White, Tamara Referring Unavailable Sementi, Ayse Consulting Unavailable Sementi, Ayse Attending Unavailable White, Tamara Admitting Unavailable Sementi, Ayse Attending Unavailable White, Tamara Referring Unavailable Sementi, Ayse Consulting Unavailable White, Tamara Admitting Unavailable Sementi, Ayse Attending Unavailable White, Tamara Referring Unavailable Sementi, Ayse Consulting Unavailable Jose, Kali Admitting Unavailable Jose, Kali Referring Unavailable Primay Care Physicia, No Primary Care Unavailable [place], [place] Attending Unavailable Jose, Kali Admitting Unavailable Jose, Kali Attending Unavailable Jose, Kali Referring Unavailable Primay Care Physicia, No Primary Care Unavailable Jose, Kali Consulting Unavailable Jose, Kali Admitting Unavailable Koram, Meghann Carisa Attending Unavailable Jose, Kali Referring Unavailable Primay Care Physicia, No Primary Care Unavailable Koram, Meghann Carisa Consulting Unavailable Jose, Kali Admitting Unavailable Paintsil, [place] Attending Unavailable [facility], Kali Referring Unavailable Primay Care Physicia, No Primary Care Unavailable Paintsil, [place] Consulting Unavailable Kali Garcia Admitting Unavailable Paintsil, [place] Attending Unavailable Kali Garcia Referring Unavailable Primay Care Physicia, No Primary Care Unavailable Paintsil, [place] Consulting Unavailable PROBLEMS PROBLEMS DATE TYPE CONDITION / CODE ATTENDING STATUS SOURCE 12/14/2017 Admitting Poisoning by unsp OLEG FRAUSTO [facility] diagnosis drug/meds/biol Repository subst, accidental, init / T50.901A(ICD-9) 12/14/2017 Final diagnosis Poisoning by OLEG FRAUSTO [facility] (discharge) heroin, accidental Repository (unintentional), init encntr / T40.1X1A(ICD-9) 12/14/2017 Final diagnosis Opioid abuse, OLEG FRAUSTO [facility] (discharge) uncomplicated / Repository F11.10(ICD-9) 12/14/2017 Final diagnosis Acute lymphangitis OLEG FRAUSTO [facility] (discharge) of unspecified part Repository of limb / L03.129(ICD-9) 11/21/2017 Principle Cellulitis of right NA Active [facility] diagnosis lower limb / Medical Center L03.115(ICD-10) Repository PROCEDURES PROCEDURES DATE CODE DESCRIPTION STATUS SOURCE 11/21/2017 31382(C4) XR KNEE RIGHT (3 Completed [facility] VIEWS) [facility] Repository 11/21/2017 28158(C4) US DUP LOWER Completed [facility] EXTREMITY RIGHT [facility] Repository RESULTS RESULTS DISCHARGE SUMMARY Observed: 03/14/2018 Status: F Source: [place] 8:39 [facility] REPOSITORY [facility] Medical Records Department [address] [place] [address] Discharge Summary 03/14/18 0830 MR#: [id number] Acct: [id number] Name: CORBY PEDERSEN Roxanne Rep #: [id number] : 1990 27 From: Maddy Dos Santos MD PCP: Care Physician, No Primary Status: ADM IN [place] [facility] [place] Discharge Date and Diagnosis Date of Admission: 03/11/18 Date of Discharge: 03/14/18 - Primary Discharge Diagnosis Acute opiate withdrawal Nicotine dependence - Secondary Discharge Diagnosis Chronic Problems History of hepatitis A (Chronic) Hepatitis B antibody positive (Chronic) Heroin abuse (Chronic) Polysubstance abuse (Chronic) Nicotine abuse (Chronic) Hepatitis C (Chronic) Hospital Course and Treatment None Operations: None Procedures: None Summary of Care Provided: The patient is a 27 year old M with past medical history of polysubstance use who comes in with complaints of acute opioid withdrawal for medical stabilization the [facility] program. Patient was managed under the protocol successfully. No complaints. No acute events during his stay. He will be discharged to follow-up with his outpatient program. He plans on getting BP control from Dr. Clark in the outpatient. He has been encouraged to stop smoking and using illicit drugs. Subjective: The day of discharge, patient was seen and examined. Denied any new complaints. Denied any problems or dizziness or chest pain. Objective: Physical exam: General: Alert, Oriented x3, Cooperative, No apparent distress HEENT: Atraumatic, PERRLA, EOMI, Normocephalic Oral: Moist Mucosa Neck: Supple, No JVD, Negative Carotid Bruits Lungs: Clear to auscultation, Normal air movement Cardiovascular: Regular rate, Regular Rhythm, Normal S1, Normal S2, No murmurs Abdomen: Bowel Sounds Present, Soft, Non Tender Extremities: No clubbing, No cyanosis, No edema, Capillary Refill Less than 3 Seconds Skin: No rashes, No breakdown Musculoskeletal: No Tenderness to Palpation of Joints or Extremities Lymphatic: No Cervical, Supraclavicular, or Inguinal Adenopathy Neurological: Cranial nerves II-XII grossly intact, Neuro grossly intact, Motor Exam 5/5 strength throughout Psych/Mental Status: Normal Affect, Appropriate, Alert and oriented to time, place, person, mood and affect - Physical Exam Vital Signs Temp Pulse Resp BP Pulse Ox 98.5 F 86 16 126/84 H 97 03/14/18 06:00 03/14/18 06:00 03/14/18 06:00 03/14/18 06:00 03/13/18 14:48 Oxygen Delivery Method Room Air Weight: 82.871 kg Body Mass Index (BMI) 27.8 Intake and Output for Last 24 Hours Intake Total 595 / 595 680 / 680 592 / 592 Output Total 300 / 300 Balance 295 / 295 680 / 680 592 / 592 Discharge Diet: No Restrictions Discharge Activity: Return to Normal Activity Primary Care Physician: Care Physician,No Primary [Primary Care Provider] - Please follow up with your Primary Care Physician in: within 2 weeks Disposition: Home Minutes spent on discharge:: 25 Patient Condition:: Stable Medical Necessity - Tobacco Use Smoking Status: Current every day smoker Tobacco Use: Cigarettes Meaningful Use Info Meaningful Use Diagnoses (Choose all that apply): None applicable Code Visit Inpatient PILO: 44632 Disch Hosp 03/14/1839 <Electronically signed by Maddy Dos Santos MD> Date Maddy Dos Santos MD Cosigner Signature (if applicable): Date CC: No Primary Care Physician; Maddy Dos Santos MD Signed DISCHARGE INSTRUCTION Observed: 03/14/2018 Status: F Source: [place] 8:30 [facility] REPOSITORY [facility] Medical Records Department [address] [place] [address] Instructions for Home/Discharge Instructions 03/14/18824 MR#: [id number] Acct: [id number] Name: CORBY PEDERSEN Rep #: [id number] : 1990 27 From: Maddy Dos Santos MD PCP: Care Physician, No Primary Status: ADM IN - Discharge Diagnoses Reason(s) for Visit for Discharge Instructions: Acute opiate withdrawal You will use the following diet at home:: Regular Your food should be the consistency of: Regular Your liquids should be the consistency of: Regular/Thin Discharge Activity: Return to Normal Activity Additional Instructions: Follow-up with your outpatient rehab program including Vivitriol as scheduled. You are strongly advised to quit using drugs. Allergies/Adverse Reactions: Allergies No Known Allergies Allergy (Verified 09/03/17 16:03) Primary Care Physician: Care Physician,No Primary [Primary Care Provider] - Please follow up with your Primary Care Physician in: within 2 weeks Test Results: Test results from this visit will be discussed in further detail at your follow-up appointment, if applicable. Proposed Discharge Date: 03/14/18 03/14/18829 <Electronically signed by Maddy Dos Santos MD> Date Maddy Dos Santos MD CC: No Primary Care Physician URINE DRUG SCREEN Collected: 03/12/2018 Status: F Source: [place] ([place]ISTA) 1:35 PM REPOSITORY TYPE CODE TESTS RESULT OUT OF RANGE REFERENCE UNITS LAB L505.0075 TO BE Normal CONFIRMED Result Comment: CONFIRMATORY TESTING FOR ALL POSITIVE URINE DRUG SCREEN RESULTS WILL ONLY BE SENT OUT UPON PHYSICIAN ORDER. VISTA Urine Drug Screen methods provide only preliminary analytical test results. A more specific alternate chemical method must be used in order to obtain a confirmed analytical result. Gas chromatography/mass spectrometery (GC/MS) is the preferred confirmatory method. Clinical consideration and professional judgement should be applied to any drug of abuse test result, particularly when preliminary positive results are used. URINE TCA TESTING MUST BE ORDERED SEPARATELY. USE TEST MNEMONIC: [facility] LAB L505.5005 VISTA UDS PH 6 Normal LAB L505.5015 <1000 ng/mL AMPHETAMINES Normal NEGATIVE LAB L505.5025 < 200 ng/mL BARBITIURATES Normal NEGATIVE LAB L505.5035 < 200 High ng/mL BENZODIAZIPINE POSITIVE LAB L505.5045 < 300 ng/mL COCAINE Normal NEGATIVE LAB L505.5055 < 500 ng/mL ECSTACY Normal NEGATIVE LAB L505.5065 < 300 ng/mL METHADONE Normal NEGATIVE LAB L505.5075 < 300 ng/mL OPIATES Normal NEGATIVE LAB L505.5085 < 25 ng/mL PCP Normal NEGATIVE LAB L505.5095 < 50 ng/mL THC Normal NEGATIVE Performed By: #### L505.5000 #### [facility] [address] [place], [address] URINALYSIS, COMPLETE Collected: 03/12/2018 Status: F Source: [place] 1:35 PM REPOSITORY Order Comment: How was Urine Obtained? CLEAN CATCH TYPE CODE TESTS RESULT OUT OF RANGE REFERENCE UNITS LAB L400.3000 Yellow COLOR Normal Yellow LAB L400.3050 Clear Normal CLARITY Clear LAB L400.3200 Normal mg/dl Normal GLUCOSE, UR Normal LAB L400.3300 Negative mg/dL Normal BILIRUBIN URINE Negative LAB L400.3400 Negative mg/dl Normal KETONE UR Negative LAB L400.3465 1.002-1.030 Normal SP.GR. DIPSTX 1.010 LAB L400.3550 5.0 - 8.0 pH UR Normal 7.0 LAB L400.3600 Negative mg/dl PROT Normal DIPSTX Negative LAB L400.3700 Normal mg/dl Normal UROBILI Normal LAB L400.3750 Negative Normal NITRITE UR Negative LAB L400.3780 Negative /ul High 10 OCCULT BLOOD-UR LAB L400.3800 Negative /ul LEUK Normal ESTERASE Negative LAB L400.4050 0-5 /hpf WBC 0 Normal SEEN LAB L400.4100 0-5 /hpf Normal RBC-UA 0-5 SEEN LAB L400.4150 0-5 /hpf SQUAM 0 Normal EPI SEEN LAB L400.4300 None Seen /hpf 0 Normal BACTERIA SEEN LAB L400.4350 <or=2+ /hpf 0 Normal MUCUS, URINE SEEN Performed By: #### L400.0001 #### [facility] [address] [place], [address] HISTORY AND PHYSICAL Observed: 03/11/2018 Status: F Source: [place] EXAM 6:49 PM REPOSITORY [facility] Medical Records Department [address] [place] [address] History and Physical 03/11/18 1840 MR#: [id number] Acct: [id number] Name: CORBY PEDERSEN Roxanne Rep #: [id number] : 1990 27 From: Kali Garcia MD PCP: Care Physician, No Primary Status: ADM IN [place] [facility] Problem List (1) History of hepatitis A Status: Chronic (2) Hepatitis B antibody positive Status: Chronic (3) Acute opioid withdrawal Status: Acute (4) Heroin abuse Status: Chronic (5) Polysubstance abuse Status: Chronic (6) Nicotine abuse Status: Chronic (7) Hepatitis C Status: Chronic History of Present Illness Date of Admission: 03/11/18 Chief Complaint: Opioid withdrawal symptoms The patient is a 27 year old M with history of chronic heroin IV use, history of hepatitis C was admitted directly on the floor through [facility] for medical stabilization of opioid withdrawal syndrome. Patient is having symptoms of restlessness, anxiety, chills, muscle and bone pain, sweating and mild loose bowel movements/diarrhea. Patient had previous hospitalization for part withdrawal in 2016 at 2018. He had right leg venous thrombophlebitis this year about 3- 4 months ago and took antibiotic but did not need IND. Denies any previous history of incision and drainage, infective endocarditis. [] He uses IV heroin half to 1 g daily since age of 19. Last use was yesterday. He also uses parts smoking on occasion since age of 15. Cigarette smoking 1 pack/day since age of 19. Denies drinking alcohol, crack cocaine, hallucinogens or benzodiazepines. Past Medical History Past Medical History (Chronic Problems): Chronic Problems History of hepatitis A (Chronic) Hepatitis B antibody positive (Chronic) Heroin abuse (Chronic) Polysubstance abuse (Chronic) Nicotine abuse (Chronic) Hepatitis C (Chronic) Allergies No Known Allergies Allergy (Verified 09/03/17 16:03) Psychiatric History: No pertinent psych hx Smoking Status: Current every day smoker Tobacco Use: Cigarettes - *Family History Paternal History Items: No pertinent history Review of Systems Constitutional: Reports: Chills, Malaise, Weakness HEENT: Denies: Head Aches, Sinus Congestion, Sinus Drainage Cardiovascular: Denies: Chest Pain, Palpitations Respiratory: Denies: Cough, Shortness of breath at rest, Sputum production Gastrointestinal: Denies: Abdominal Pain, Nausea, Vomiting Genitourinary: Denies: Dysuria Musculoskeletal: Reports: Joint Pain, Leg Pain, Muscle pain. Denies: Joint Tenderness Skin: Reports: Rash. Denies: Wounds Neurological: Reports: Incoordination. Denies: Focal weakness, Numbness, Tingling Psychiatric: Reports: Anxiety. Denies: Depression, Homicidal Ideations, Suicidal Ideations Hematologic/ Lymphatic: Denies: Easy Bruising, Easy Bleeding VTE Information - Inpt Only VTE Present on Admission: No VTE Mechan Device Prophylaxis: None VTE Pharm Prophylaxis ordered?: No - Physical Exam General: Alert, Oriented x3, Cooperative HEENT: Atraumatic, PERRLA, EOMI, Normocephalic Neck: Supple, No JVD, Negative Carotid Bruits Lungs: Clear to auscultation, Normal air movement, No rhonchi, No wheeze, No rales Cardiovascular: Regular rate, Regular Rhythm, Normal S1, Normal S2, No murmurs Abdomen: Bowel Sounds Present, Soft, Non Tender, Non-Distended Extremities: No edema, Capillary Refill Less than 3 Seconds Skin: Rash Present - Needle track gutierrez present in both forearms and both lower legs along the great saphenous vein. No obvious abscess. Musculoskeletal: No Tenderness to Palpation of Joints or Extremities Neurological: Cranial nerves II-XII grossly intact Psych/Mental Status: Normal Affect, Appropriate Vital Signs Temp Pulse Resp BP 98.0 F 80 16 118/72 03/11/18 17:06 03/11/18 17:06 03/11/18 17:06 03/11/18 17:06 Weight: 182 lb 11.2 oz Body Mass Index (BMI) 27.8 Laboratory Tests Past 24 Hrs WBC Assessment/Plan All Active Problems Acute opioid withdrawal (Acute) The patient is a 27 year old M with history of chronic heroin IV use, history of hepatitis C was admitted directly on the floor through [facility] program for medical stabilization of opioid withdrawal syndrome. Patient is having symptoms of restlessness, anxiety, chills, muscle and bone pain, sweating and mild loose bowel movements/diarrhea. Patient had previous hospitalization for part withdrawal in 2016 at 2018. He had right leg venous thrombophlebitis this year about 3- 4 months ago and took antibiotic but did not need IND. Denies any previous history of incision and drainage, infective endocarditis. [] He uses IV heroin half to 1 g daily since age of 19. Last use was yesterday. He also uses parts smoking on occasion since age of 15. Cigarette smoking 1 pack/day since age of 19. Denies drinking alcohol, crack cocaine, hallucinogens or benzodiazepines. 1. Acute opioid withdrawal syndrome with history of chronic opioid/heroin use and dependence with frequent relapses: Patient is being admitted on regular MedSurg floor. Orders set for medical stabilization. Patient is on Librium scheduled and then taper and buprenorphine taper program. 2. Chronic hepatitis C: Outpatient evaluation and management. 3. Nicotine dependence and marijuana use: On nicotine patch. Counseling done for cessation of opioids any smoking. DVT prophylaxis: Low risk. Early ambulation encouraged. No prophylaxis indicated. Code Visit Inpatient E AND M: 51154 Init Hosp L3 03/11/18 5142 <Electronically signed by Kali Garcia MD> Date Kali Garcia MD Cosigner Signature: Date (if applicable) CC: No Primary Care Physician; Kali Garcia MD Signed CBC W/DIFF, AUTOMATED Collected: 03/11/2018 Status: F Source: [place] 6:02 PM REPOSITORY TYPE CODE TESTS RESULT OUT OF RANGE REFERENCE UNITS LAB L100.1000 4.4-11.0 K/mm3 High WBC 11.4 LAB L100.1200 4.6-6.2 M/mm3 Normal RBC 4.78 LAB L100.1300 13.0-16.5 g/dl Normal HGB 15.3 LAB L100.1400 40-54 % Normal HCT 44.6 LAB L100.1500 80-94 fL Normal MCV 93.3 LAB L100.1600 27.0-32.0 pg Normal MCH 32.0 LAB L100.1700 32-36 g/gl Normal MCHC 34.3 LAB L100.1810 11.6-14.6 % Normal RDW CV 12.1 LAB L100.1820 35.1-43.9 fl Normal RDW SD 40.5 LAB L100.1900 150-450 K/mm3 Normal PLT 237 LAB L100.2000 6.2-12.0 fl Normal MPV 10.1 LAB L100.2100 47-70 % Normal NEUT% 64.4 LAB L100.2200 19-41 % Normal LY% 19.8 LAB L100.2300 0-10 % Normal MONO% 8.5 LAB L100.2400 0-5 % High EO% 6.4 LAB L100.2500 0-1 % Normal BASO% 0.7 LAB L100.2550 0.0-0.9 % Normal IM GRAN % 0.200 Result Comment: IG% - Immature Granulocytes (promyelocytes, myelocytes and metamyelocytes) > 1% indicates that a LEFT SHIFT is Present. LAB L100.2620 2.0-7.7 X10 3/uL Normal Absolute Neut 7.3 LAB L100.2720 0.83-4.51 X10 3/ul Normal Absolute Lymph 2.25 Performed By: #### L100.0100 #### [facility] [address] [place], [place], [id number] PROTHROMBIN TIME W/INR Collected: 03/11/2018 Status: F Source: [place] 6:02 PM REPOSITORY TYPE CODE TESTS RESULT OUT OF RANGE REFERENCE UNITS LAB L300.4150 11.7-14.9 SECONDS Normal PROTIME 12.8 LAB L300.4200 Normal INR 1.0 Performed By: #### L300.3900 #### [facility] [address] [facility] [place], [place], [id number] ALCOHOL, BLOOD Collected: 03/11/2018 Status: F Source: [place] (MEDICAL)-SERUM 6:02 PM REPOSITORY TYPE CODE TESTS RESULT OUT OF RANGE REFERENCE UNITS LAB L501.9100 mg/dL Normal SERUM < 3.0 ETOH Result Comment: The serum:whole blood ethanol ratio is approximately 1.14 and varies slightly with hematocrit. Medical Alcohol reference interval and critical value in non-tolerant individuals; 50 - 100 Impairment 100 Intoxication 100 - 250 Severe Poisoning 250 - 400 Deep/possible fatal coma Performed By: #### L501.9100 #### [facility] [address] [facility] [place], [place], [id number] COMPREHENSIVE METABOLIC Collected: 03/11/2018 Status: F Source: [place] PROFIL 6:02 PM REPOSITORY TYPE CODE TESTS RESULT OUT OF RANGE REFERENCE UNITS LAB L501.0100 74-106 mg/dL Normal GLU 83 Result Comment: Please note revised GLUCOSE reference range effective 2017. LAB L501.1000 7-18 mg/dL Normal BUN 12 LAB L501.1100 0.70-1.30 mg/dL Normal CREAT,SERUM 0.70 Result Comment: The validity of the calculated GFR AND GFRAA in patients over 70 years has not been determined. Clinical correlation is essential. LAB L501.1110 >60 mL/min Normal EST GFR 145 Result Comment: Non- GFR Calc LAB L501.1115 >60 mL/min Normal EST GFR - AA 176 Result Comment: GFR Calc LAB L501.1255 ml/min Normal Estimated CRCL 154.71 LAB L501.1300 10-20 RATIO BUN/CRE Normal 17.2 LAB L501.1500 6.4-8. g/dL 2 T PROT Normal 7.0 LAB L501.1800 3.2-5. g/dL 0 ALB Normal 3.2 LAB L501.1950 2.2-4. g/dL 2 GLOB Normal 3.8 LAB L501.2000 0.9-2. RATIO Low 4 A/G 0.8 LAB L501.2200 8.5-10 mg/dL .1 CA Normal 8.8 LAB L501.4100 15-37 U/L High AST 42 LAB L501.4305 45-117 U/L ALK P Normal 96 LAB L501.4405 16-61 U/L ALT Normal 58 LAB L501.4600 0.20-1 mg/dL .00 T BILI Normal 0.40 LAB L501.5300 136-14 mmol/L 5 NA Normal 136 LAB L501.5600 3.5-5. mmol/L 1 K Normal 3.9 LAB L501.5900 98-107 mmol/L CL Normal 104 LAB L501.6100 21.0-3 mmol/L 2.0 CO2 Normal 26.0 LAB L501.6200 5-15 GAP Normal 6 Performed By: #### L500.4050, L501.2400, L501.2450 #### [facility] [address] [place], [place], [id number] AMYLASE Collected: 03/11/2018 Status: F Source: [place] 6:02 PM REPOSITORY TYPE CODE TESTS RESULT OUT OF RANGE REFERENCE UNITS LAB L501.2400 25-115 U/L Normal HELGA 36 Performed By: #### L500.4050, L501.2400, L501.2450 #### [facility] [address] [place], [place], [id number] LIPASE Collected: 03/11/2018 Status: F Source: [place] 6:02 PM REPOSITORY TYPE CODE TESTS RESULT OUT OF RANGE REFERENCE UNITS LAB L501.2450 73-393 U/L Normal LIPASE 109 Performed By: #### L500.4050, L501.2400, L501.2450 #### [facility] [address] [place], [address] US DUP LOWER EXTREMITY Observed: 11/21/2017 Status: F Source: [facility] RIGHT [place] 7:15 PM [facility] REPOSITORY LOWER EXTREMITY VENOUS DUPLEX EXAM: REASON FOR EXAMINATION: Right leg pain and calf tenderness. Trauma to leg. COMPARISON: None. A venous duplex exam of the right lower extremity was obtained. The following veins were evaluated, including the common femoral, femoral, popliteal and calf veins. The veins were evaluated with color Doppler imaging, compression and augmentation if possible. All the veins demonstrated show no evidence for deep venous thrombosis. There is good compression of all veins visualized. CONCLUSION: NO EVIDENCE FOR DEEP VENOUS THROMBOSIS FROM THE LEVEL OF THE THE COMMON FEMORAL VEIN TO THE POPLITEAL FOSSA. NO DEFINITE CALF VEIN THROMBOSIS IN THE RIGHT LEG(S). Interpreted by: Rosa Isela Solis MD Signed by: Rosa Isela Solis MD 11/21/17 Final result XR KNEE RIGHT (3 Observed: 11/21/2017 Status: F Source: [facility] VIEWS) 7:15 PM [facility] REPOSITORY XR KNEE RIGHT (3 VIEWS) : 11/21/2017 CLINICAL HISTORY: injury/pain . COMPARISON: None available. TECHNIQUE: AP, lateral and two oblique radiographs of the right knee were obtained. FINDINGS: There is no fracture, dislocation, significant joint effusion, degenerative changes, radiodense foreign bodies, worrisome bone destruction, or pathologic calcifications identified. The visualized joint spaces are intact. IMPRESSION: NEGATIVE RIGHT KNEE. Interpreted by: Oleg Reeves MD Signed by: Oleg Reeves MD 11/22/17 Final result DISCHARGE SUMMARY Observed: 09/06/2017 Status: F Source: [place] 1:16 PM REPOSITORY [facility] Medical Records Department [address] [place] [address] Discharge Summary 09/06/17 1308 MR#: [id number] Acct: [id number] Name: CORBY PDEERSEN Rep #: [id number] : 1990 From: Lynette Cabral DO PCP: Status: ADM IN Location: [place] [address] Discharge Date and Diagnosis - Problem List Patient Problems: Active and Suspected Problems Acute opioid withdrawal (Acute) Date of Admission: 09/03/17 Date of Discharge: 09/06/17 - Primary Discharge Diagnosis Active and Suspected Problems Acute opioid withdrawal (Acute) - Secondary Discharge Diagnosis Chronic Problems History of hepatitis A (Chronic) Hepatitis B antibody positive (Chronic) Heroin abuse (Chronic) Polysubstance abuse (Chronic) Nicotine abuse (Chronic) Hepatitis C antibody + (Chronic) Hospital Course and Treatment Imaging Results: Laboratory Tests WBC RBC Hgb Hct MCV MCH MCHC RDW RDW Differential WBC RBC Hgb Hct MCV MCH MCHC RDW RDW Differential none Operations: None Procedures: None Summary of Care Provided: The patient is a 26 year old M with a hx of heroin/polysubstance abuse, hepatitis C antibody positive and tobacco dependence who presented to the [facility] office at [facility] on 09/03/2017 requesting inpatient admission for medical stabilization for opiate withdrawal. He has never attended an inpatient drug rehab program in the past. He has been using heroin for 7 years but started with pills. He complained of abdominal cramping, generalized body aches and pains, rhinorrhea, fatigue, restless leg and sweating. He expressed an interest in an inpatient program at discharge. He was admitted to the hospital and started on the [facility] protocol for opiate withdrawal. A CBC was unremarkable. CMP showed a low potassium at 3.1 and this was supplemented and came up to 3.8. Random blood sugar was 155 but the hemoglobin A1c was 4.9. Urine drug screen was positive for opiates, cocaine and cannabinoids. Hepatitis panel was positive for hepatitis A antibody, + for hepatitis B core total antibody and negative for hepatitis B core IgM antibody, + for Hep C antibody. HIV was negative. The results of the hepatitis panel was shared with the patient and he was instructed to follow-up with an infectious disease doctor after he has been clean for 1 year. His inpatient stay was unremarkable he was discharged on 09/06/2017 in stable condition. Alert and oriented 3, no apparent distress, no tremors Lungs-clear to auscultation Heart-regular rate and rhythm, no murmur, no gallop, no rub No jaundice and no scleral icterus Abdomen-soft, nontender, nondistended, normal bowel sounds No petechiae, no areas of ecchymosis This note was generated with [employer] software. It may contain incorrect words, spelling, and punctuation that were not noted in checking the note before signing. Discharge Activity: Return to Normal Activity Call your doctor if you observe: Fever of 101 or Higher Disposition: Home - inpt rehab for drugs Minutes spent on discharge:: 30 Patient Condition:: Good Medical Necessity - Tobacco Use Smoking Status: Current every day smoker Tobacco Use: Cigarettes Meaningful Use Info Meaningful Use Diagnoses (Choose all that apply): None applicable Code Visit Inpatient E AND M: 59784 Disch Hosp 09/06/17 1316 <Electronically signed by Lynette Cabral DO> Date Lynette Cabral DO Cosigner Signature (if applicable): Date CC: Ayse Cabral Signed DISCHARGE INSTRUCTION Observed: 09/06/2017 Status: F Source: [place] 1:08 PM REPOSITORY [facility] Medical Records Department [address] [place] [address] Instructions for Home/Discharge Instructions 09/06/17 1252 MR#: [id number] Acct: [id number] Name: CORBY PEDERSEN Rep #: [id number] : 1990 26 From: Lynette Cabral DO PCP: Status: ADM IN - Discharge Diagnoses Current Active Problems: Current Active and Chronic Problems Acute opioid withdrawal (Acute) Heroin abuse (Chronic) Polysubstance abuse (Chronic) Nicotine abuse (Chronic) Hepatitis C (Chronic) You will use the following diet at home:: No restrictions Your liquids should be the consistency of: Regular/Thin, Honey Thick Discharge Activity: Return to Normal Activity Call your doctor if you observe: Fever of 101 or Higher Additional Instructions: You have antibody to hepatitis A, B and C in your blood. B and C can both lead to cirrhosis and liver cancer. You MUST be clean for a year before an infectious disease doctot will treat you for hep C. The HIV test was negative. There are other communicable types of hepatitis so DO NOT SHARE NEEDLES and ALWAYS USE A CONDOM with sexual intercourse. BE safe and Good luck to you. Pending Tests on Discharge: none Allergies/Adverse Reactions: Allergies No Known Allergies Allergy (Verified 09/03/17 16:03) Proposed Discharge Date: 09/06/17 09/06/17 1308 <Electronically signed by Lynette Cabral DO> Date Lynette Bernard Jpwarren DO CC: BASIC METABOLIC Collected: 09/05/2017 Status: F Source: [place] PROFILE ([facility]) 5:40 AM REPOSITORY TYPE CODE TESTS RESULT OUT OF RANGE REFERENCE UNITS LAB L501.0100 74-106 mg/dL Normal GLU 94 Result Comment: Please note revised GLUCOSE reference range effective 2017. LAB L501.1000 7-18 mg/dL Normal BUN 13 LAB L501.1100 0.70-1.30 mg/dL Normal CREAT,SERUM 0.90 Result Comment: The validity of the calculated GFR AND GFRAA in patients over 70 years has not been determined. Clinical correlation is essential. LAB L501.1110 >60 mL/min Normal EST GFR 109 Result Comment: Non- GFR Calc LAB L501.1115 >60 mL/min Normal EST GFR - AA 132 Result Comment: GFR Calc LAB L501.1255 ml/min Normal Estimated CRCL 117.31 LAB L501.1300 10-20 RATIO BUN/CRE Normal 14.5 LAB L501.2200 8.5-10 mg/dL .1 CA Normal 8.5 LAB L501.5300 136-14 mmol/L 5 NA Normal 140 LAB L501.5600 3.5-5. mmol/L 1 K Normal 3.8 LAB L501.5900 98-107 mmol/L High CL 109 LAB L501.6100 21.0-3 mmol/L 2.0 CO2 Normal 23.0 LAB L501.6200 5-15 GAP Normal 8 Performed By: #### L500.2500 #### [facility] [address] [place], [address] URINE DRUG SCREEN Collected: 09/04/2017 Status: F Source: [place] ([facility]) 12:20 PM REPOSITORY Order Comment: List of Drugs Taken or Suspected? UNK TYPE CODE TESTS RESULT OUT OF RANGE REFERENCE UNITS LAB L505.0075 TO BE Normal CONFIRMED Result Comment: CONFIRMATORY TESTING FOR ALL POSITIVE URINE DRUG SCREEN RESULTS WILL ONLY BE SENT OUT UPON PHYSICIAN ORDER. VISTA Urine Drug Screen methods provide only preliminary analytical test results. A more specific alternate chemical method must be used in order to obtain a confirmed analytical result. Gas chromatography/mass spectrometery (GC/MS) is the preferred confirmatory method. Clinical consideration and professional judgement should be applied to any drug of abuse test result, particularly when preliminary positive results are used. URINE TCA TESTING MUST BE ORDERED SEPARATELY. USE TEST MNEMONIC: [facility] LAB L505.5005 VISTA UDS PH 6 Normal LAB L505.5015 <1000 ng/mL AMPHETAMINES Normal NEGATIVE LAB L505.5025 < 200 ng/mL BARBITIURATES Normal NEGATIVE LAB L505.5035 < 200 ng/mL BENZODIAZIPINE Normal NEGATIVE LAB L505.5045 < 300 High ng/mL COCAINE POSITIVE LAB L505.5055 < 500 ng/mL ECSTACY Normal NEGATIVE LAB L505.5065 < 300 ng/mL METHADONE Normal NEGATIVE LAB L505.5075 < 300 High ng/mL OPIATES POSITIVE LAB L505.5085 < 25 ng/mL PCP Normal NEGATIVE LAB L505.5095 < 50 High ng/mL THC POSITIVE Performed By: #### L505.5000 #### [facility] [address] [facility]. [place], [place], [address] CBC W/DIFF, AUTOMATED Collected: 09/03/2017 Status: F Source: [place] 4:50 PM REPOSITORY TYPE CODE TESTS RESULT OUT OF RANGE REFERENCE UNITS LAB L100.1000 4.4-11.0 K/mm3 Normal WBC 8.2 LAB L100.1200 4.6-6.2 M/mm3 Normal RBC 5.01 LAB L100.1300 13.0-16.5 g/dl Normal HGB 16.0 LAB L100.1400 40-54 % Normal HCT 44.7 LAB L100.1500 80-94 fL Normal MCV 89.2 LAB L100.1600 27.0-32.0 pg Normal MCH 31.9 LAB L100.1700 32-36 g/gl Normal MCHC 35.8 LAB L100.1810 11.6-14.6 % Normal RDW CV 12.1 LAB L100.1820 35.1-43.9 fl Normal RDW SD 38.7 LAB L100.1900 150-450 K/mm3 Normal PLT 277 LAB L100.2000 6.2-12.0 fl Normal MPV 10.5 LAB L100.2100 47-70 % High NEUT% 76.8 LAB L100.2200 19-41 % Low LY% 17.1 LAB L100.2300 0-10 % Normal MONO% 5.3 LAB L100.2400 0-5 % Normal EO% 0.2 LAB L100.2500 0-1 % Normal BASO% 0.5 LAB L100.2550 0.0-0.9 % Normal IM GRAN % 0.100 Result Comment: IG% - Immature Granulocytes (promyelocytes, myelocytes and metamyelocytes) > 1% indicates that a LEFT SHIFT is Present. LAB L100.2620 2.0-7.7 X10 3/uL Normal Absolute Neut 6.3 LAB L100.2720 0.83-4.51 X10 3/ul Normal Absolute Lymph 1.39 Performed By: #### L100.0100 #### [facility] [address] [place], [place], [address] COMPREHENSIVE METABOLIC Collected: 09/03/2017 Status: F Source: [facility] 4:50 PM REPOSITORY TYPE CODE TESTS RESULT OUT OF RANGE REFERENCE UNITS LAB L501.0100 74-106 mg/dL High GLU 155 Result Comment: Fasting Glucose result greater than or equal to 126 mg/dL suggests DIABETES MELLITUS per A.D.A. criteria. Please note revised GLUCOSE reference range effective 2017. LAB L501.1000 7-18 mg/dL Normal BUN 10 LAB L501.1100 0.70-1.30 mg/dL Normal CREAT,SERUM 0.93 Result Comment: The validity of the calculated GFR AND GFRAA in patients over 70 years has not been determined. Clinical correlation is essential. LAB L501.1110 >60 mL/min Normal EST GFR 105 Result Comment: Non- GFR Calc LAB L501.1115 >60 mL/min Normal EST GFR - AA 127 Result Comment: GFR Calc LAB L501.1255 ml/min Normal Estimated CRCL 113.52 LAB L501.1300 10-20 RATIO BUN/CRE Normal 10.7 LAB L501.1500 6.4-8. g/dL 2 T PROT Normal 8.1 LAB L501.1800 3.2-5. g/dL 0 ALB Normal 4.0 LAB L501.1950 2.2-4. g/dL 2 GLOB Normal 4.1 LAB L501.2000 0.9-2. RATIO 4 A/G Normal 1.0 LAB L501.2200 8.5-10 mg/dL .1 CA Normal 9.0 LAB L501.4100 15-37 U/L AST Normal 35 LAB L501.4305 45-117 U/L ALK P Normal 68 LAB L501.4405 16-61 U/L ALT Normal 59 LAB L501.4600 0.20-1 mg/dL .00 T BILI Normal 0.60 LAB L501.5300 136-14 mmol/L 5 NA Normal 137 LAB L501.5600 3.5-5. mmol/L Low 1 K 3.1 LAB L501.5900 98-107 mmol/L CL Normal 106 LAB L501.6100 21.0-3 mmol/L 2.0 CO2 Normal 23.0 LAB L501.6200 5-15 GAP Normal 8 Performed By: #### L500.4050, L501.2450 #### [facility] [address] [place], [place], [id number] LIPASE Collected: 09/03/2017 Status: F Source: [place] 4:50 PM REPOSITORY TYPE CODE TESTS RESULT OUT OF REFERENCE UNITS RANGE LAB L501.2450 73-393 U/L Low LIPASE 51 Performed By: #### L500.4050, L501.2450 #### [facility] [address] [place], [place], [id number] ALCOHOL, BLOOD Collected: 09/03/2017 Status: F Source: [place] (MEDICAL)-SERUM 4:50 PM REPOSITORY TYPE CODE TESTS RESULT OUT OF RANGE REFERENCE UNITS LAB L501.9100 mg/dL Normal SERUM < 3.0 ETOH Result Comment: The serum:whole blood ethanol ratio is approximately 1.14 and varies slightly with hematocrit. Medical Alcohol reference interval and critical value in non-tolerant individuals; 50 - 100 Impairment 100 Intoxication 100 - 250 Severe Poisoning 250 - 400 Deep/possible fatal coma Performed By: #### L501.9100 #### [facility] [address] [place], [address] HIV - [facility] Collected: 09/03/2017 Status: F Source: [place] 4:50 PM REPOSITORY TYPE CODE TESTS RESULT OUT OF RANGE REFERENCE UNITS LAB L3890.6005 Nonreactive Normal HIV - [facility] Non-Reactive Performed By: #### L3890.6005 #### [facility] [address] [place], [address] HEMOGLOBIN A1C Collected: 09/03/2017 Status: F Source: [place] 4:50 PM REPOSITORY Order Comment: Comments: ok to add on TYPE CODE TESTS RESULT OUT OF RANGE REFERENCE UNITS LAB L501.9985 4.2-6.3 % Normal HGB A1C 4.9 Performed By: #### L501.9985 #### [facility] [address] [place], [address] HEPATITIS ABC PROFILE Collected: 09/03/2017 Status: F Source: [place] 4:50 PM REPOSITORY TYPE CODE TESTS RESULT OUT OF RANGE REFERENCE UNITS LAB L3100.0200 Negative Normal HEP A Negative IgM 6734 LAB L3100.0300 Negative High HEP A Positive AB,T.6726 Result Comment: RESULTS OF ALL POSITIVE RESULTS CALLED TO ROSALIE Peguero 09/05/17 1450 Alejandra Weaver. REPORT READ BACK BY SAME. LAB L3100.0400 Negative Normal HB Negative SURF AG LAB L3100.0440 Negative Normal HB Negative CORE [id number] LAB L3100.0460 Negative High HEP B Positive CORE,TOT LAB L3100.0510 . Normal Hep B Reactive Cori AB Result Comment: Non Reactive: Inconsistent with immunity, less than 10 mIU/mL Reactive: Consistent with immunity, greater than 9.9 mIU/mL LAB L3100.0750 0.0-0.9 s/co ratio High HCV Ab >11.0 LAB L3100.0775 . Normal COMMENT Comment Result Comment: Strong reactive antibody screen (s/c ratio >10.9) is consistent with past or present HCV infection. Follow-up testing by HCV, Quantitative, Real time PCR (#[id number]) is recommended to determine viral load/diagnosis of current HCV infection. Performed at: - [facility] [address] [id number] Microbiology Technologist: Navarro Trinidad PhD, Phone: [phone] Performed By: #### L3000.0700 #### [facility] (refer to report for specific site) refer to report for address and phone number HISTORY AND PHYSICAL Observed: 09/03/2017 Status: F Source: [place] EXAM 4:44 PM REPOSITORY [facility] Medical Records Department [address] [place] [address] History and Physical 09/03/17 1611 MR#: [id number] Acct: [id number] Name: CORBY PEDERSEN Rep #: [id number] : 1990 26 From: Eduardo DOLL PCP: Status: ADM IN [place] [facility] [id number] ADDENDUM by Tamara Torres on 09/03/17 at 1644 Code Visit ATTENDING PHYSICIAN NOTE: I have seen and examined the patient independently and agree with the assessment, plan, history per Eduardo Casey as noted. Chief Complaint: Acute Opiate Withdrawal The patient is a 26 y/o M w/ PMHx: Tobacco use, hepatitis C, IV heroin usage approximately 1-2 g per day with last usage 09/01/17 10 pm, occasional crack cocaine smoking approximately 2 times per month with last usage 09/01/17 10 pm, rare alcohol and occasional cannabis usage who presents to the [facility] per [facility] w/ noted opiate withdrawal onset starting 09/02/17 with abdominal pain/cramping, generalized body aches and pains, rhinorrhea, piloerection, fatigue, restless leg, sweating, yawning. Patient interested in attaining clean status. Labs, Allergies, Home medications, Social Hx, PSurgHx, Family Hx per note below. Admission Review of Systems: CONSTITUTIONAL: No weight loss, fever, + chills, weakness or fatigue. HEENT: Eyes: No visual loss, blurred vision, double vision or yellow sclerae. Ears, Nose, Throat: + congestion, runny nose. SKIN: + itching, track gutierrez, no acutely infected regions, No lesions, wounds. CARDIOVASCULAR: No chest pain, chest pressure or chest discomfort, palpitations, edema, orthopnea, syncopal events. RESPIRATORY: No shortness of breath, cough or sputum, wheezing, hemoptysis. GASTROINTESTINAL: + anorexia, nausea, abdominal pain, No melena, BRBPR. GENITOURINARY: No dysuria, frequency, urgency or retention. NEUROLOGICAL: No headache, dizziness, syncope, paralysis, ataxia, numbness or tingling in the extremities, focal weakness, change in bowel or bladder control, seizure. MUSCULOSKELETAL: + diffuse muscle, back pain. HEMATOLOGIC: No anemia, bleeding or bruising. LYMPHATICS: No enlarged nodes. No history of splenectomy. PSYCHIATRIC: + history of depression or anxiety. ENDOCRINOLOGIC: No reports of sweating, cold or heat intolerance. No polyuria or polydipsia. ALLERGIES: No history of asthma, hives, eczema or rhinitis. Admission VS: As noted below. Physical Examination: General: awake, alert, oriented x 3 and cooperative, seated upright in the bed, mildly agitated, ongoing withdrawal. Skin: normal color, turgor, no icterus, cyanosis. HEENT: AT/NC, EOMI, PERRLA, mildly dry MM, mild rhinorrhea noted, no carotid bruits or JVD noted. Lungs: CTA bilaterally, moderate effort, mild decrease BL bases, no rales, ronchi or wheezing. Heart: Mildly tachycardic w/ regular rhythm; no gallop, rub audible. Abdomen: soft, NTTP, ND, normal BS, no marked HSM. Extremities: no cyanosis, clubbing, or edema. Neurological: patient awake, alert, oriented x 3; cognitive function intact; pupils equally reactive to light and accomodation; cranial nerves II-XII grossly normal, moving all 4 extremities, no focal deficits, strength moderately to severely globally decreased secondary to acute presentation. Psychiatric: affect appears mildly agitated, no acute evidence of depressive or anxiety feelings. Assessment and Plan: The patient is a 26 y/o M w/ PMHx: Tobacco use, hepatitis C, IV heroin usage approximately 1-2 g per day with last usage 09/01/17 10 pm, occasional crack cocaine smoking approximately 2 times per month with last usage 09/01/17 10 pm, rare alcohol and occasional cannabis usage who presents to the [facility] per [facility] w/ noted opiate withdrawal onset starting 09/02/17. (1) Acute Opiate Withdrawal: Will admit to [facility], obtain routine labs including CBC, CMP, urine for drug screen, urinalysis, serum lipase, routine EKG and will initiate and continue on [facility] service protocol with tapering course of Subutex, as needed Seroquel, Librium, Sinemet, Catapres, Bentyl, Vistaril, IV fluids, IV antiemetics, Tylenol as needed for pain. Once patient clinically improved and completion of taper nearing will plan [facility] assistance for transition to next level of rehabilitation care. (2) Polysubstance Abuse, IVDA Hx, History of Hepatitis C, Chronic: Patient currently not candidate for hep C treatment currently as needs to be clean, sober x 6 months, documented attendance NA or AA meetings, counseling and ongoing negative drug screens. Once appropriate GI, ID to initiate. HIV, hepatitis panel to assess for co- infection pending. Encouraged PCP establishment and follow-up. (3) Tobacco Abuse: Encouraged cessation, inpatient consultation per RT, NR if desired. Inpatient E AND M: [id number] Init Hosp L2 09/03/17 1644 <Electronically signed by Tamara Torres > Date Tamara Torres cc: LAVON Casey; Tamara Torres * Signed Problem List (1) Acute opioid withdrawal Status: Acute (2) Heroin abuse Status: Chronic (3) Polysubstance abuse Status: Chronic (4) Nicotine abuse Status: Chronic (5) Hepatitis C Status: Chronic History of Present Illness Date of Admission: 09/03/17 Chief Complaint: heroin withdrawal The patient is a 26 year old M with a hx of heroin abuse and Hepatitis C who presents to the hospital via the medical stabilization program in acute heroin withdrawal. He last went through a rehab program in [place] in 2016 and relapsed soon after. He has been injective 1.5-2.0 grams per day IV in his arms and left neck. He last used 0.5 grams on 09/01/17 about 2200. He also smokes 1 ppd and desires a patch. He occasionally uses crack - last use 09/01/2017. He occsaionally uses benzos but has not done so for months. He rarely drinks. His current withdrawal symptoms include nausea, vomiting, shakes, anxiety, restless legs, leg cramps, abdominal pain, chills. He is requesting detox and plans to go from here to the [address] [place] [address]. He does have a hx of hep C and has never been treated. He does not take any medications. [] Past Medical History Past Medical History (Chronic Problems): Chronic Problems Heroin abuse (Chronic) Polysubstance abuse (Chronic) Nicotine abuse (Chronic) Hepatitis C (Chronic) Allergies No Known Allergies Allergy (Verified 09/03/17 16:03) Psychiatric History: No pertinent psych hx Lives: With Family Smoking Status: Current every day smoker Tobacco Use: Cigarettes Alcohol: Occasional Drugs: Cocaine, Heroin Review of Systems Constitutional: Denies: Chills, Fever, Weight Change HEENT: Denies: Head Aches, Sinus Congestion, Sinus Drainage Cardiovascular: Denies: Chest Pain, Palpitations Respiratory: Denies: Cough, Shortness of breath at rest, Sputum production Gastrointestinal: Denies: Abdominal Pain, Nausea, Vomiting Genitourinary: Denies: Dysuria Musculoskeletal: Denies: Joint Pain, Joint Tenderness Skin: Reports: Wounds - track gutierrez without acute inflammation BL arms and left neck. Denies: Rash Neurological: Denies: Numbness, Tingling, Focal weakness Psychiatric: Denies: Anxiety, Depression, Homicidal Ideations, Suicidal Ideations Hematologic/ Lymphatic: Denies: Easy Bruising, Easy Bleeding VTE Information - Inpt Only VTE Present on Admission: No VTE Mechan Device Prophylaxis: None VTE Pharm Prophylaxis ordered?: No Reason prophylaxis not ordered:: Procedure Not Indicated Patient Problems: Active and Suspected Problems Acute opioid withdrawal (Acute) - Physical Exam General: Alert, Oriented x3, Cooperative HEENT: Atraumatic, PERRLA, EOMI, Normocephalic Neck: Supple, No JVD, Negative Carotid Bruits Lungs: Clear to auscultation, Normal air movement Cardiovascular: Regular rate, No murmurs Abdomen: Bowel Sounds Present, Soft, Non Tender Extremities: No edema, Capillary Refill Less than 3 Seconds, - - BL track gutierrez no acute inflammation BL arms, left neck. mildly indurated. Skin: No rashes, No breakdown Musculoskeletal: No Tenderness to Palpation of Joints or Extremities Neurological: Cranial nerves II-XII grossly intact Psych/Mental Status: Normal Affect, Appropriate, Alert and oriented to time, place, person, mood and affect Weight: 78.018 kg Body Mass Index (BMI) 26.9 Assessment/Plan Active and Suspected Problems Acute opioid withdrawal (Acute) 1. Acute heroin withdrawal - initiate medical stabilization protocol. Current symptoms include anxiety, chills, leg pain and RLS, nausea, vomiting, diarrhea. 1.5-2.0 g / day IV user. No infected areas. Last use 0.5g 2200 on 09.01.2017. 2. Polysubstance abuse - nicotine (patch), crack, benzos. 3. Hep C - never treated. Will need to remain sober to pursue treatment. DVT ppx: early ambulation DC plannin program Medical stabilization day 1 of 4. This patient was seen by Eduardo Casey PA-C under the supervision of Dr. Torres. 09/03/17 1626 <Electronically signed by Eduardo DOLL> Date Eduardo DOLL 09/03/17 1640<Electronically signed by Tamara Torres > Cosigner Signature: Date (if applicable) Tamara Torres CC: LAVON Torres Signed PROGRESS Observed: 07/05/2017 Status: COMPLETED Source: [place] 3:50 PM [facility] REPOSITORY O ID: [id number] Author: Jose Cruz Service: (none) Author Type: Physician Type: Progress Notes Filed: 07/05/2017 4:29 PM Note Text: Subjective Patient is a 29 year old male presenting with sore throat and fever. The history is provided by the patient. Sore Throat This is a new problem. The current episode started in the past 7 days. The problem has been gradually improving. Neither side of throat is experiencing more pain than the other. The pain is at a severity of 7/10. The pain is severe. Associated symptoms include congestion. Pertinent negatives include no abdominal pain, coughing, diarrhea, ear pain, headaches, shortness of breath or vomiting. He has had no exposure to strep or mono. He has tried NSAIDs for the symptoms. The treatment provided mild relief. Fever Associated symptoms include congestion and sore throat. Pertinent negatives include no chest pain, no diarrhea, no vomiting, no headaches and no cough. Review of Systems Constitutional: Positive for chills and fever. Negative for malaise/fatigue. HENT: Positive for congestion and sore throat. Negative for ear pain. Eyes: Negative for blurred vision, pain and discharge. Respiratory: Negative for cough, sputum production, shortness of breath and wheezing. Cardiovascular: Negative for chest pain and palpitations. Gastrointestinal: Negative for abdominal pain, constipation, diarrhea, nausea and vomiting. Musculoskeletal: Negative for joint pain and myalgias. Skin: Negative for itching and rash. Neurological: Positive for weakness. Negative for dizziness, tingling, sensory change and headaches. No past medical history on file. No past surgical history on file. No family history on file. Social History Marital status: Single Spouse name: Years of education: Number of children: Social History Main Topics Smoking status: Never Smoker Alcohol use: Yes Comment: Socially, on occasion. Drug use: No Social History Narrative Merged History Encounter Current Meds fluticasone (FLONASE) 50 mcg/actuation nasal spray dextroamphetamine-amphetamine (ADDERALL XR) 30 mg 24 hr capsule amoxicillin (AMOXIL) 875 mg tablet azithromycin (ZITHROMAX) 250 mg tablet Take 2 tablets on day 1 then 1 tablet daily. ofloxacin 0.3 % otic solution Use 5 Drops in the left ear twice daily. azithromycin (ZITHROMAX Z-FRANKO) 250 mg tablet Take 1 tablet by mouth once daily. ALBUTEROL 90 MCG/ACTUATION INHL AERO ADDERALL 30 MG ORAL TAB Objective BP 124/76 Pulse 64 Temp (Src) 99.3 (Oral) Resp 12 Ht 5' 10 (1.78m) Wt 210 lb (95.3kg) BMI 30.13 kg/(m2). Physical Exam Constitutional: He is well-developed, well-nourished, and in no distress. No distress. HENT: Right Ear: External ear normal. Left Ear: External ear normal. Nose: Nose normal. Mouth/Throat: Posterior oropharyngeal edema and posterior oropharyngeal erythema present. No oropharyngeal exudate or tonsillar abscesses. Eyes: Conjunctivae and EOM are normal. Pupils are equal, round, and reactive to light. Right eye exhibits no discharge. Left eye exhibits no discharge. Neck: Normal range of motion. Neck supple. No tracheal deviation present. No thyromegaly present. Cardiovascular: Normal rate, regular rhythm and normal heart sounds. Exam reveals no friction rub. No murmur heard. Pulmonary/Chest: Effort normal. No respiratory distress. He has no wheezes. He has no rales. Lymphadenopathy: He has no cervical adenopathy. Right axillary: No pectoral and no lateral adenopathy present. Left axillary: No pectoral and no lateral adenopathy present. Right: No supraclavicular adenopathy present. Left: No supraclavicular adenopathy present. Skin: He is not diaphoretic. Vitals reviewed. ASSESSMENT/PLAN: 1. Sore throat - ICD9: 462, ICD10: J02.9 - suspect strep - Rapid Strep negative in the office today - Discussed supportive care treatment with fluids, rest and analgesia. - RAPID STREP TEST B/O - CLARITHROMYCIN 500 MG TABLET Jose Cruz DO ALLERGIES ALLERGIES DATE TYPE / CODE NAME / CODE REACTION SEVERITY SOURCE 09/03/2017 Drug No Known Unknown [facility] Allergy/4160 Allergies/F00 [facility] 00422(SNOMED [id number](RXNOR Repository CT) M) ENCOUNTERS ENCOUNTERS ADMIT/DISCHARGE ACCOUNT NUMBER ADMITTING ENCOUNTER LOCATION SOURCE CLASS 03/11/2018/03/14/20 [id number] Formerly Named [facility], Inpatient [place] 18 Kali Encounter [facility] ding:[id number] Repository : MU635Pir: 1 03/11/2018 [id number] Formerly Named [facility], Ambulatory BMSBuilding: [place] Kali BMS.[facility] Repository 03/11/2018 [id number] Formerly Named [facility], Ambulatory BMSBuilding: [place] Kali BMS.[facility] Repository 03/11/2018 [id number] Formerly Named [facility], Ambulatory BMSBuilding: [place] Kali BMS.[facility] Repository 03/11/2018 [id number] Jose, Ambulatory BMSBuilding: [place] Kali BMS.[facility] Repository 12/14/2017/12/15/19 [id number] Emergency 1637Building [facility] 18 :AERRoom: Healthcare [id number]: Repository AER06-B 11/21/2017/11/22/19 [id number] Emergency Building:[place] [address] Room: 17Bed: [address] Repository 09/03/2017/09/07/19 [id number] White, Tamara Inpatient [place] [address] [facility] ding:[id number] Repository : BB715Yni: 1 09/03/2017 [id number] White, Tamara Ambulatory BMSBuilding: [place] BMS.[facility] Repository 09/03/2017 [id number] White, Tamara Ambulatory BMSBuilding: [place] BMS.[facility] Repository 09/03/2017 [id number] White, Tamara Ambulatory BMSBuilding: [place] BMS.[facility] Repository 09/03/2017 [id number] White, Tamara Ambulatory BMSBuilding: [place] BMS.[facility] Repository PAYERS PAYERS ENCOUNTER GUARANTOR PAYER SUBSCRIBER SOURCE 03/11/2018 CORBY Oliveira Primary CORBY PEDERSEN1959 [facility] Number: [id number] [id number] Repository [address]90[address]Nwo: ([phone]) Date:2018-03-11P O [phone] () [address]ATTN: [place] [address]OG: 03/11/2018 Secondary NOT GIVENUNK [place] Insurance:SELF PAY [facility] Number: Effective Repository Date:2018-03-11 03/11/2018 CORBY Oliveira Primary CORBY PEDERSEN1959 Insurance:[facility]: [facility] Number: [id number], [place] [id number] Repository [address]Vio: ([phone]) Date:2018-03-11 O [phone] () [address]ATTN: [place] [address]OP: 03/11/2018 Secondary NOT GIVENUNK [place] Insurance:SELF PAY [facility] Number: Effective Repository Date:2018-03-11 03/11/2018 CORBY J Primary CORBY Lindsey [id number] Insurance:CARESOURCEP THOMPSONDOB: [facility] Number: [id number], [place] [id number] Repository [address]Frw: ([phone]) Date:2018-03-11P O [phone] () [address]ATTN: [place] [address]LW: 03/11/2018 Secondary NOT GIVENUNK [place] Insurance:SELF PAY [facility] Number: Effective Repository Date:2018-03-11 03/11/2018 CORBY J Primary CORBY Lindsey [id number] Insurance:CARESOURCEP THOMPSONDOB: [facility] Number: [id number], [place] [id number] Repository [address]Hbj: ([phone]) Date:2018-03-11P O [phone] () [address]ATTN: [place] [address]DD: 03/11/2018 Secondary NOT GIVENUNK [place] Insurance:SELF PAY [facility] Number: Effective Repository Date:2018-03-11 03/11/2018 CORBY J Primary CORBY Lindsey [id number] Insurance:CARESOURCEP THOMPSONDOB: [facility] Number: [id number], [place] [id number] Repository 113[address]Xon: ([phone]) Date:2018-03-11P O [phone] () [address]ATTN: [place] [address]WJ: 03/11/2018 Secondary NOT GIVENUNK [place] Insurance:SELF PAY [facility] Number: Effective Repository Date:2018-03-11 12/14/2017 CORBY Primary CORBY [facility] THOMPSONDOB: Insurance:CARESOURCE^ THOMPSONDOB: Repository L^[id number]^XXPoli [id number] MERT cy Number: 0 MERT RDVERWOMAN'S H[facility] [place]ON, [place] [id number] RDVERSENTARA WILLIAM[facility] [place], [place] [address]Hse: ([phone]) Date:Plan 57168Zed: () Name:[facility] [phone] () [address] [id number]: 09/03/2017 CORBY Primary MASOOD THOMPSONDOB: [place] [id number] Insurance:ANTHEMPolic [id number] Community MERT y [id number] Repository [address]Qva: ([phone]) ceci Date:1833-05-57DB [phone] () [address] [place] [address]TD: 09/03/2017 Secondary NOT GIVENUNK [place] Insurance:SELF PAY [facility]: Effective Repository Date:2017-09-03 09/03/2017 [facility] Primary MASOOD THOMPSONDOB: [place] [id number] Insurance:ANTHEMPolic [id number] [facility] MERT y Number: [place], [place] [id number] Repository [address]Qij: ([phone]) ceci Date:8571-23-31KA [phone] () [id number] [place] [address]WW: 09/03/2017 Secondary NOT GIVENUNK [place]és[place] Insurance:SELF PAY [facility] Number: Effective Repository Date:2017-09-03 09/03/2017 [facility] Primary MASOOD THOMPSONDOB: [place] [id number] [facility] [id number] [facility] MERT y Number: [place], [place] [id number] Repository [address]Vca: ([phone]) ceci Date:1025-70-31EE [phone] () [id number] [place] [address]CB: 09/03/2017 Secondary NOT GIVENUNK [place] Insurance:SELF PAY [facility] Number: Effective Repository Date:2017-09-03 09/03/2017 CORBY Oliveira Primary MASOOD ZALDIVARB: [place] PEDERSEN1959 Insurance:ANTHEMPolic [id number] Community MERT y Number: [place], [place] [id number] Repository [address]Mee: ([phone]) ceci Date:0496-42-77BC [phone] () [address]XUBYCV, [place] [address]JU: 09/03/2017 Secondary NOT GIVENUNK [place] Insurance:SELF PAY [facility] Number: Effective Repository Date:2017-09-03 09/03/2017 CORBY ZALDIVARB: [place] PEDERSEN1959 Insurance:ANTHEMPolic [id number] [facility] MERT y Number: [place], [place] [id number] Repository [address]Aqx: (440) ceci Date:3393-90-48HZ [phone] () [address]CEZCB, [place] [address]PG: 09/03/2017 Secondary NOT GIVENUNK [place] Insurance:SELF PAY [facility] Number: Effective Repository Date:2017-09-03
== END 2018-03-14 11:05 | disposition home or self-care (01) | DRG 773 ==
PROVIDERS: Admitting Provider Internal Medicine; Referring Provider Internal Medicine; Visit Provider Internal Medicine
DX: F11.23 Opioid dependence with withdrawal (principal); Z86.72 Personal history of thrombophlebitis; F17.210 Nicotine dependence, cigarettes, uncomplicated; B18.2 Chronic viral hepatitis C; F12.10 Cannabis abuse, uncomplicated; F15.10 Other stimulant abuse, uncomplicated; Z86.19 Personal history of other infectious and parasitic diseases
CPT/HCPCS: 36415; 80053; 80307; 80320; 81001; 82150; 83690; 85025; 85610; 99218; G0378; G0379; G0480

== ENCOUNTER 2018-07-28 16:40 | Observation (INO) | payer MEDICAID, SELFPAY ==
[2018-03-11 16:47] VITALS: BMI 27.8
[2018-07-28 16:54] VITALS: BMI 27.2; BMI 27.3
[2018-07-28 17:16] VITALS: BP 138/87; PULSE 104; RESP 18; TEMP 37.7; O2SAT 98
--- NOTE | 2018-07-28 17:16 | HP.PCM_ITS ---
<Ani Ashraf - Last Filed: 07/28/18 17:26> Problem List (1) History of hepatitis A Status: Chronic (2) Hepatitis B antibody positive Status: Chronic (3) Acute opioid withdrawal Status: Acute (4) Heroin abuse Status: Chronic (5) Polysubstance abuse Status: Chronic (6) Nicotine abuse Status: Chronic (7) Hepatitis C Status: Chronic History of Present Illness Date of Admission: 07/28/18 Chief Complaint: Opiate withdrawal. The patient is a 27 year old M who presents through [facility] program due to opioid withdrawal. Patient has been through detox multiple times in the past. He states he was not ready last time he finished detox and reports he used fairly quickly upon discharge from detox program. He currently uses IV heroin .5G daily. He reports crack use as well. Denies methamphetamine, marijuana or alcohol use. He does occasionally use benzodiazepines but states it has been a few weeks since he has used them last. Current pack per day smoker. He is currently homeless. He has streaking on the left side of his neck. Otherwise no wounds or skin issues. He denies prior past medical history. Past Medical History Past Medical History (Chronic Problems): Chronic Problems History of hepatitis A (Chronic) Hepatitis B antibody positive (Chronic) Heroin abuse (Chronic) Polysubstance abuse (Chronic) Nicotine abuse (Chronic) Hepatitis C (Chronic) Allergies No Known Allergies Allergy (Verified 09/03/17 16:03) Surgical History: tonsillectomy Psychiatric History: No pertinent psych hx Lives: Homeless Smoking Status: Current every day smoker Tobacco Use: Secondhand Alcohol: None Drugs: Heroin, - - Crack - *Family History Paternal History Items: - - Denies known paternal medical history including cardiac history. Maternal History Items: Hypertension Review of Systems Constitutional: Denies: Chills, Weakness, Weight Change HEENT: Denies: Head Aches, Sinus Congestion, Sinus Drainage Cardiovascular: Denies: Chest Pain, Edema, Palpitations, Syncope Respiratory: Denies: Cough, Shortness of breath at rest, Sputum production Gastrointestinal: Reports: Diarrhea, Nausea, - - Abdominal cramping. Genitourinary: Denies: Dysuria Musculoskeletal: Denies: Joint Pain, Joint Tenderness Skin: Reports: - - Left neck streaking. Denies: Rash, Wounds Neurological: Denies: Numbness, Tingling, Focal weakness Psychiatric: Denies: Anxiety, Depression, Homicidal Ideations, Suicidal Ideations Hematologic/ Lymphatic: Denies: Easy Bruising, Easy Bleeding VTE Information - Inpt Only VTE Present on Admission: No VTE Mechan Device Prophylaxis: None VTE Pharm Prophylaxis ordered?: No Reason prophylaxis not ordered:: Treatment Not Indicated - Physical Exam General: Alert, Oriented x3, Cooperative HEENT: Atraumatic, PERRLA, EOMI, Normocephalic Neck: Supple, No JVD, Negative Carotid Bruits Lungs: Clear to auscultation, Normal air movement Cardiovascular: Regular rate, Regular Rhythm, Normal S1, Normal S2, No murmurs Abdomen: Bowel Sounds Present, Soft, Non Tender, Non-Distended Extremities: No clubbing, No cyanosis, No edema, Capillary Refill Less than 3 Seconds Skin: No rashes, No breakdown, - - Left neck streaking, no abscess or cellulitis. Musculoskeletal: No Tenderness to Palpation of Joints or Extremities Neurological: Cranial nerves II-XII grossly intact, Neuro grossly intact Psych/Mental Status: Normal Affect, Appropriate Body Mass Index (BMI) 27.8 Assessment/Plan All Active Problems Acute opioid withdrawal (Acute) 1. Acute opiate withdrawal-medical stabilization per protocol. Obtain urine drug screen. PRN regimen for somatic complaints. Further disposition per [facility] program. 2. Polysubstance abuse -admits to using opiates, crack, benzodiazepines. UDS ordered. 3. Hep C-not treated due to continued drug abuse. Will need to be sober for 6 months prior to outpatient treatment/evaluation. 4. Tobacco Dependence-encouraged smoking cessation. Nicotine replace and patch. DVT prophylaxis-not indicated, low risk. This patient was seen by RICKEY Bradford under the supervision of Dr. Dos Santos. <Maddy Dos Santos - Last Filed: 07/28/18 18:09> History of Present Illness The patient is a 27 year old M [] Past Medical History Allergies No Known Allergies Allergy (Verified 09/03/17 16:03) - Physical Exam Vital Signs Temp Pulse Resp BP Pulse Ox 99.8 F H 104 H 18 138/87 H 98 07/28/18 17:16 07/28/18 17:16 07/28/18 17:16 07/28/18 17:16 07/28/18 17:16 Oxygen Delivery Method Room Air Weight: 79 kg Body Mass Index (BMI) 27.2 Assessment/Plan This patient was seen in conjunction with Ani Ashraf NP. I have independently interviewed and examined the patient and reviewed pertinent historical, laboratory, and other data. Please refer to her note for patient's presentation, findings, and recommendations. CC: Acute opiate withdrawal HPI: 27-year-old male with past medical history of chronic hepatitis C, nicotine use disorder, polysubstance use, heroin use disorder who comes in for medical stabilization under the [facility] protocol. He was recently discharged in February 2018 after completing medical stabilization under the [facility] protocol. He reports that after his detox program, he went back to using his heroin. He admits to last using heroin prior to discharge. He also admits to using crack cocaine a day prior to admission. PMHx: Chronic hepatitis C, polysubstance use, nicotine dependence PSHx: Tonsillectomy FHX: Hypertension in his mother SHX: Smokes every day, 1 pack a day, polysubstance use as noted in HPI ROS: Admits to diarrhea, nausea, no vomiting, no fever, no chills, tremors, goosebumps, hot and cold flushes Rest of ROS is negative. Physical Exam: Gen: Comfortable, not pale, not jaundiced, alert oriented x3 CVS:HS I +II, regular, no murmurs RESP: CTA GI:BS present and normal, soft, nontender, no palpable organs. EXT:No edema ASSESSMENT: 1. Acute opioid withdrawal 2. Polysubstance use 3. Nicotine dependence 4. Chronic hep C Plan: We will continue to monitor per [facility] protocol Nicotine patch and gum Patient needs to follow-up in the outpatient for chronic hep C management Code Visit Inpatient E&M: [id number] Init Hosp L2
[2018-07-28 18:00] VITALS: RESP 16
[2018-07-28] MEDS: Ibuprofen 400 MG Tablet PO (18:59)
[2018-07-28] MEDS: Pramipexole Di-HCl 0.25 MG Tablet PO (19:00)
[2018-07-28] MEDS: Dicyclomine 10 MG Capsule 20 MG PO (19:00)
[2018-07-28] MEDS: Buprenorphine HCl 2 MG TAB.SUBL SL (19:00)
--- NOTE | 2018-07-28 19:31 | NURSING ---
Patient refused labs due to not feeling well-- states he will get them done tomorrow. Notified lab of same.
[2018-07-28 21:12] VITALS: BP 133/69; PULSE 90; RESP 18; TEMP 37.1; O2SAT 95
[2018-07-28 21:14] VITALS: BP 133/69; PULSE 90; RESP 18; TEMP 37.1
[2018-07-28] MEDS: cloNIDine HCl 0.1 MG Tablet PO (21:18)
[2018-07-28] MEDS: MELATONIN 3 MG TABLET PO (22:54)
[2018-07-29] VITALS (9 sets, daily range): BP systolic 117–137; BP diastolic 70–89; PULSE 75–87; RESP 16–18; TEMP 36.8–37.1; O2SAT 96–100
[2018-07-29] MEDS: Buprenorphine HCl 2 MG TAB.SUBL SL ×3 (01:49→18:36)
[2018-07-29 06:24] LABS: Absolute Lymphocyte Count 1.23 X10^3/ul (0.83-4.51); Absolute Neutrophil Count 2.5 X10^3/uL (2.0-7.7); Basophil# 0.05 X10^3/uL; Eosinophil# 0.33 X10^3/uL; Eosinophils% 6.8 % (0-5); Hemoglobin 15.2 g/dl (13.0-16.5); Lymphocyte # 1.23 X10^3/ul (4.0); Lymphocyte % 25.3 % (19-41); Mean Corp Hgb Conc 33.8 g/gl (32-36); Mean Corpuscular Hgb 31.2 pg (27.0-32.0); Mean Corpuscular Volume 92.4 fL (80-94); Mean Platelet Vol. 10.4 fl (6.2-12.0); Monocyte# 0.76 X10^3/uL; Monocyte% 15.6 % (0-10); Neutrophil % 51.3 % (47-70); Platelet Count 194 K/mm3 (150-450); RBC Distribution Width SD 44.1 fl (35.1-43.9); Red Blood Count 4.87 M/mm3 (4.6-6.2); White Blood Count 4.9 K/mm3 (4.4-11.0)
[2018-07-29 06:30] LABS: POSITIVE COUNT NO; POSITIVE DIFFERENTIAL NO; POSITIVE MORPHOLOGY NO
[2018-07-29 06:51] LABS: ALB/GLOB Ratio 0.9 RATIO (0.9-2.4); AST(SGOT) 60 U/L (15-37); Alanine Aminotransfer ALT/SGPT 63 U/L (16-61); Albumin, Serum 3.2 g/dL (3.2-5.0); Alkaline Phosphatase 109 U/L (45-117); Anion Gap 3 (5-15); BUN 9 mg/dL (7-18); BUN/Creat Ratio 10.8 RATIO (10-20); Calcium,Total 8.2 mg/dL (8.5-10.1); Chloride 107 mmol/L (98-107); Creatinine, Serum 0.83 mg/dL (0.70-1.30); EST Glomerular Filtration Rate 118 mL/min (>60); Est Glom Filt Rate - Afr Amer 143 mL/min (>60); Estimated Creatinine Clearance 126.09 ml/min; Globulin 3.5 g/dL (2.2-4.2); Glucose 95 mg/dL (74-106); Protein, Total 6.7 g/dL (6.4-8.2); Sodium Level 137 mmol/L (136-145)
--- NOTE | 2018-07-29 09:23 | PN_ITS ---
Subjective: Patient seen and examined. States he just wants to sleep denies significant withdrawal symptoms at this time. - Physical Exam General: Alert, Oriented x3, Cooperative HEENT: Atraumatic, PERRLA, EOMI, Normocephalic Neck: Supple, No JVD, Negative Carotid Bruits Lungs: Clear to auscultation, Normal air movement Cardiovascular: Regular rate, Regular Rhythm, Normal S1, Normal S2, No murmurs Abdomen: Bowel Sounds Present, Soft, Non Tender, Non-Distended Extremities: No clubbing, No cyanosis, No edema, Capillary Refill Less than 3 Seconds Skin: No rashes, No breakdown, - - Left neck streaking, no abscess or cellulitis. Musculoskeletal: No Tenderness to Palpation of Joints or Extremities Neurological: Cranial nerves II-XII grossly intact, Neuro grossly intact Psych/Mental Status: Normal Affect, Appropriate Vital Signs Temp Pulse Resp BP Pulse Ox 98.3 F 79 16 137/76 H 97 07/29/18 06:14 07/29/18 06:14 07/29/18 06:14 07/29/18 06:14 07/29/18 06:13 Oxygen Delivery Method Room Air Weight: 174 lb 2.643 oz Body Mass Index (BMI) 27.2 Intake and Output for Last 24 Hours 07/27/18 07/28/18 07/29/18 23:59 23:59 23:59 Intake Total 1000 / 1000 600 / 600 Balance 1000 / 1000 600 / 600 Laboratory Tests Past 24 Hrs 07/29/18 07/29/18 05:57 05:57 WBC 4.9 RBC 4.87 Hgb 15.2 Hct 45.0 MCV 92.4 MCH 31.2 MCHC 33.8 RDW 13.0 RDW Differential 44.1 H Plt Count 194 MPV 10.4 Immature Gran % (Auto) 0.000 Neut % (Auto) 51.3 Lymph % (Auto) 25.3 Freeborn % (Auto) 15.6 H Eos % (Auto) 6.8 H Baso % (Auto) 1.0 Absolute Neuts (auto) 2.5 Absolute Lymphs (auto) 1.23 Total Counted Not Reportable Sodium 137 Potassium 4.0 Chloride 107 Carbon Dioxide 27.0 Anion Gap 3 L BUN 9 Creatinine 0.83 Estim Creat Clear Calc 126.09 Est GFR (MDRD) Af Amer 143 Est GFR (MDRD) Non-Af 118 BUN/Creatinine Ratio 10.8 Glucose 95 Calcium 8.2 L Total Bilirubin 0.30 AST 60 H ALT 63 H Alkaline Phosphatase 109 Total Protein 6.7 Albumin 3.2 Globulin 3.5 Albumin/Globulin Ratio 0.9 Medical Necessity - Tobacco Use Smoking Status: Current every day smoker Tobacco Use: Secondhand Assessment/Plan All Active Problems Acute opioid withdrawal (Acute) 1. Acute opiate withdrawal-medical stabilization per protocol. Obtain urine drug screen. PRN regimen for somatic complaints. Further disposition per [facility] program. Plan for sober living house at discharge. 2. Polysubstance abuse -admits to using opiates, crack, benzodiazepines. UDS ordered. 3. Hep C-not treated due to continued drug abuse. Will need to be sober for 6 months prior to outpatient treatment/evaluation. 4. Tobacco Dependence-encouraged smoking cessation. Nicotine replace and patch. DVT prophylaxis-not indicated, low risk. This patient was seen by RICKEY Bradford under the supervision of Dr. Cabral.
[2018-07-29] MEDS: cloNIDine HCl 0.1 MG Tablet PO ×4 (10:04→21:22)
[2018-07-29] MEDS: hydrOXYzine PAM 25 MG Capsule 50 MG PO ×2 (10:04→18:39)
[2018-07-29] MEDS: Methocarbamol 750 MG Tablet PO ×2 (10:04→18:40)
[2018-07-29] MEDS: Ibuprofen 400 MG Tablet PO ×2 (10:04→18:40)
--- NOTE | 2018-07-29 15:02 | CHAPLAIN ---
Type of Pastoral Visit _x__ Initial Visit ___ Follow-up Visit ___ On-call Visit ___ General Patient Visit ___ Spiritual Assessment ___ Family Conference ___ Bereavement ___ Rapid Response ___ Code Blue ___ Other (describe below) Pastoral Care Referral From _x__ Patient ___ Family ___ Nurse ___ Physician ___ Steel Crane Operator ___ Television Producer ___ Other (describe below) Sacrament/Intervention _x__ Active listening ___ Anointing ___ Quaker ___ Bereavement ___ Communion ___ Roya exploration ___ _x__ Life review _x__ Prayer ___ Reconciliation ___ Sacrament of Sick _x__ Supportive presence ___ Wedding ___ Other (describe below) Pastoral Comments patient has been seen before in previous admissions; pt remembers this jacker feeder and welcomes visit; pt admits need to get life turned around and says he is willing to go to rehab this time
[2018-07-29] MEDS: Pramipexole Di-HCl 0.25 MG Tablet PO (18:40)
[2018-07-29] MEDS: MELATONIN 3 MG TABLET PO (21:22)
[2018-07-30 03:00] VITALS: BP 118/84; PULSE 65; RESP 16; TEMP 36.4
[2018-07-30] MEDS: Buprenorphine HCl 2 MG TAB.SUBL SL ×2 (03:00→09:52)
[2018-07-30] MEDS: Ibuprofen 400 MG Tablet PO (03:00)
[2018-07-30] MEDS: cloNIDine HCl 0.1 MG Tablet PO (03:00)
[2018-07-30 03:51] LABS: Amphetamine Urine VISTA NEGATIVE (<1000 ng/mL); Barbiturate Urine VISTA POSITIVE (< 200 ng/mL); Benzodiazepine Urine VISTA NEGATIVE (< 200 ng/mL); Cocaine Urine VISTA POSITIVE (< 300 ng/mL); Ecstacy Urine VISTA NEGATIVE (< 500 ng/mL); Methadone Urine VISTA NEGATIVE (< 300 ng/mL); PCP Urine VISTA NEGATIVE (< 25 ng/mL); THC Urine VISTA NEGATIVE (< 50 ng/mL); Vista UDS pH Range 7
[2018-07-30 09:55] VITALS: BP 119/65; PULSE 66; RESP 16; TEMP 36.6; O2SAT 99
--- NOTE | 2018-07-30 10:20 | PCM.PROGNOTE ---
<Ani Ashraf - Last Filed: 07/30/18 10:26> Subjective: Patient seen and examined. [place] pulled over his head. Denies significant withdrawal symptoms. States he is tired and wants to sleep. - Physical Exam General: Alert, Oriented x3, Cooperative HEENT: Atraumatic, PERRLA, EOMI, Normocephalic Neck: Supple, No JVD, Negative Carotid Bruits Lungs: Clear to auscultation, Normal air movement Cardiovascular: Regular rate, Regular Rhythm, Normal S1, Normal S2, No murmurs Abdomen: Bowel Sounds Present, Soft, Non Tender, Non-Distended Extremities: No clubbing, No cyanosis, No edema, Capillary Refill Less than 3 Seconds Skin: No rashes, No breakdown Musculoskeletal: No Tenderness to Palpation of Joints or Extremities Neurological: Cranial nerves II-XII grossly intact, Neuro grossly intact Psych/Mental Status: Normal Affect, Appropriate Vital Signs Temp Pulse Resp BP Pulse Ox 97.9 F 66 16 119/65 99 07/30/18 09:55 07/30/18 09:55 07/30/18 09:55 07/30/18 09:55 07/30/18 09:55 Oxygen Delivery Method Room Air Weight: 174 lb 2.643 oz Body Mass Index (BMI) 27.2 Intake and Output for Last 24 Hours 07/28/18 07/29/18 07/30/18 23:59 23:59 23:59 Intake Total 1000 / 1000 1080 / 1080 440 / 440 Balance 1000 / 1000 1080 / 1080 440 / 440 Laboratory Tests Past 24 Hrs 07/29/18 03:00 Urine Opiates Screen NEGATIVE Urine Methadone Screen NEGATIVE Ur Barbiturates Screen POSITIVE H Ur Phencyclidine Scrn NEGATIVE Ur Amphetamines Screen NEGATIVE U Methamphetamin-MDMA NEGATIVE U Benzodiazepines Scrn NEGATIVE Urine Cocaine Screen POSITIVE H U Cannabinoids Screen NEGATIVE Ur Drug Screen Comment Medical Necessity - Tobacco Use Smoking Status: Current every day smoker Tobacco Use: Secondhand Assessment/Plan All Active Problems Acute opioid withdrawal (Acute) 1. Acute opiate withdrawal-medical stabilization per protocol. Urine tox screen positive for cocaine and barbiturates. PRN regimen for somatic complaints. Further disposition per [facility]. Plan for sober living house at discharge. 2. Polysubstance abuse -admits to using opiates, crack, benzodiazepines. UDS as noted above. 3. Hep C, hepatitis B, hepatitis a-not treated due to continued drug abuse. Will need to be sober for 6 months prior to outpatient treatment/evaluation. 4. Tobacco Dependence-encouraged smoking cessation. Nicotine replace and patch. DVT prophylaxis-not indicated, low risk. Discharge planning: DC 07/31/18 following medical stabilization protocol. This patient was seen by RICKEY Bradford under the supervision of Dr. Palafox. <VivienneRosita E - Last Filed: 07/30/18 13:06> - Physical Exam Vital Signs Temp Pulse Resp BP Pulse Ox 97.9 F 66 16 119/65 99 07/30/18 09:55 07/30/18 09:55 07/30/18 09:55 07/30/18 09:55 07/30/18 09:55 Oxygen Delivery Method Room Air Weight: 174 lb 2.643 oz Body Mass Index (BMI) 27.2 Intake and Output for Last 24 Hours 07/28/18 07/29/18 07/30/18 23:59 23:59 23:59 Intake Total 1000 / 1000 1080 / 1080 440 / 440 Balance 1000 / 1000 1080 / 1080 440 / 440 Laboratory Tests Past 24 Hrs 07/29/18 03:00 Urine Opiates Screen NEGATIVE Urine Methadone Screen NEGATIVE Ur Barbiturates Screen POSITIVE H Ur Phencyclidine Scrn NEGATIVE Ur Amphetamines Screen NEGATIVE U Methamphetamin-MDMA NEGATIVE U Benzodiazepines Scrn NEGATIVE Urine Cocaine Screen POSITIVE H U Cannabinoids Screen NEGATIVE Ur Drug Screen Comment Assessment/Plan Hospitalist note: I am seeing this patient in conjunction with Ani Ashraf. I independently seen and examined the patient. Progress note above and laboratory data and I concur with the above treatment plan. Patient seen and examined today. He reported improvement of his anxiety and restlessness. All over, is feeling better. His vital signs are stable. - Physical Exam General: Alert, Oriented x3, Cooperative, No apparent distress. HEENT: Atraumatic, PERRLA, EOMI. Neck: Supple, No JVD, Negative Carotid Bruits, Trachea Midline, Thyroid Normal. Lungs: Clear to auscultation, Normal air movement, No rhonchi, No wheeze, No rales. Cardiovascular: Regular rate, Regular Rhythm, Normal S1, Normal S2, PMI Normal. Abdomen: Bowel Sounds Present, Soft, Non Tender, Non-Distended, No Hepato-splenomegaly. Extremities: No clubbing, No cyanosis, No edema Skin: No rashes, No breakdown Neurological: Neuro grossly intact Vital Signs are stable. Assessment and plan: #1 acute opiate withdrawal: On [facility] protocol with tapering course of Subutex. Symptoms started to improve. Routine blood work was unremarkable. LFT revealed slightly elevated liver transaminases likely secondary to chronic hepatitis C and B. Urine drug screen was positive for cocaine and barbiturates. Plan to continue same treatment, [place] home tomorrow. #2 other chronic medical problems: Stable, plan as above. This note was generated with [employer] dictation software. It may contain incorrect words, spelling, and punctuation that were not noted in checking the note before signing. Code Visit Inpatient E&M: 17389 Subs Hosp L2
--- NOTE | 2018-07-30 10:24 | PN_ITS ---
<Ani Ashraf - Last Filed: 07/30/18 10:26> Subjective: Patient seen and examined. [place] pulled over his head. Denies significant withdrawal symptoms. States he is tired and wants to sleep. - Physical Exam General: Alert, Oriented x3, Cooperative HEENT: Atraumatic, PERRLA, EOMI, Normocephalic Neck: Supple, No JVD, Negative Carotid Bruits Lungs: Clear to auscultation, Normal air movement Cardiovascular: Regular rate, Regular Rhythm, Normal S1, Normal S2, No murmurs Abdomen: Bowel Sounds Present, Soft, Non Tender, Non-Distended Extremities: No clubbing, No cyanosis, No edema, Capillary Refill Less than 3 Seconds Skin: No rashes, No breakdown Musculoskeletal: No Tenderness to Palpation of Joints or Extremities Neurological: Cranial nerves II-XII grossly intact, Neuro grossly intact Psych/Mental Status: Normal Affect, Appropriate Vital Signs Temp Pulse Resp BP Pulse Ox 97.9 F 66 16 119/65 99 07/30/18 09:55 07/30/18 09:55 07/30/18 09:55 07/30/18 09:55 07/30/18 09:55 Oxygen Delivery Method Room Air Weight: 174 lb 2.643 oz Body Mass Index (BMI) 27.2 Intake and Output for Last 24 Hours 07/28/18 07/29/18 07/30/18 23:59 23:59 23:59 Intake Total 1000 / 1000 1080 / 1080 440 / 440 Balance 1000 / 1000 1080 / 1080 440 / 440 Laboratory Tests Past 24 Hrs 07/29/18 03:00 Urine Opiates Screen NEGATIVE Urine Methadone Screen NEGATIVE Ur Barbiturates Screen POSITIVE H Ur Phencyclidine Scrn NEGATIVE Ur Amphetamines Screen NEGATIVE U Methamphetamin-MDMA NEGATIVE U Benzodiazepines Scrn NEGATIVE Urine Cocaine Screen POSITIVE H U Cannabinoids Screen NEGATIVE Ur Drug Screen Comment Medical Necessity - Tobacco Use Smoking Status: Current every day smoker Tobacco Use: Secondhand Assessment/Plan All Active Problems Acute opioid withdrawal (Acute) 1. Acute opiate withdrawal-medical stabilization per protocol. Urine tox screen positive for cocaine and barbiturates. PRN regimen for somatic complaints. Further disposition per [facility]. Plan for sober living house at discharge. 2. Polysubstance abuse -admits to using opiates, crack, benzodiazepines. UDS as noted above. 3. Hep C, hepatitis B, hepatitis a-not treated due to continued drug abuse. Will need to be sober for 6 months prior to outpatient treatment/evaluation. 4. Tobacco Dependence-encouraged smoking cessation. Nicotine replace and patch. DVT prophylaxis-not indicated, low risk. Discharge planning: DC 07/31/18 following medical stabilization protocol. This patient was seen by RICKEY Bradford under the supervision of Dr. Palafox. <VivienneRosita E - Last Filed: 07/30/18 13:06> - Physical Exam Vital Signs Temp Pulse Resp BP Pulse Ox 97.9 F 66 16 119/65 99 07/30/18 09:55 07/30/18 09:55 07/30/18 09:55 07/30/18 09:55 07/30/18 09:55 Oxygen Delivery Method Room Air Weight: 174 lb 2.643 oz Body Mass Index (BMI) 27.2 Intake and Output for Last 24 Hours 07/28/18 07/29/18 07/30/18 23:59 23:59 23:59 Intake Total 1000 / 1000 1080 / 1080 440 / 440 Balance 1000 / 1000 1080 / 1080 440 / 440 Laboratory Tests Past 24 Hrs 07/29/18 03:00 Urine Opiates Screen NEGATIVE Urine Methadone Screen NEGATIVE Ur Barbiturates Screen POSITIVE H Ur Phencyclidine Scrn NEGATIVE Ur Amphetamines Screen NEGATIVE U Methamphetamin-MDMA NEGATIVE U Benzodiazepines Scrn NEGATIVE Urine Cocaine Screen POSITIVE H U Cannabinoids Screen NEGATIVE Ur Drug Screen Comment Assessment/Plan Hospitalist note: I am seeing this patient in conjunction with Ani Ashraf. I independently seen and examined the patient. Progress note above and laboratory data and I concur with the above treatment plan. Patient seen and examined today. He reported improvement of his anxiety and restlessness. All over, is feeling better. His vital signs are stable. - Physical Exam General: Alert, Oriented x3, Cooperative, No apparent distress. HEENT: Atraumatic, PERRLA, EOMI. Neck: Supple, No JVD, Negative Carotid Bruits, Trachea Midline, Thyroid Normal. Lungs: Clear to auscultation, Normal air movement, No rhonchi, No wheeze, No rales. Cardiovascular: Regular rate, Regular Rhythm, Normal S1, Normal S2, PMI Normal. Abdomen: Bowel Sounds Present, Soft, Non Tender, Non-Distended, No Hepato- splenomegaly. Extremities: No clubbing, No cyanosis, No edema Skin: No rashes, No breakdown Neurological: Neuro grossly intact Vital Signs are stable. Assessment and plan: #1 acute opiate withdrawal: On [facility] protocol with tapering course of Subutex. Symptoms started to improve. Routine blood work was unremarkable. LFT revealed slightly elevated liver transaminases likely secondary to chronic hepatitis C and B. Urine drug screen was positive for cocaine and barbiturates. Plan to continue same treatment, [place] home tomorrow. #2 other chronic medical problems: Stable, plan as above. This note was generated with [employer] dictation software. It may contain incorrect words, spelling, and punctuation that were not noted in checking the note before signing. Code Visit Inpatient E&M: 27312 Subs Hosp L2
[2018-07-30 15:05] VITALS: BP 135/92; PULSE 81; RESP 16; TEMP 36.9
--- NOTE | 2018-07-30 15:32 | CHAPLAIN ---
Type of Pastoral Visit ___ Initial Visit _x__ Follow-up Visit ___ On-call Visit ___ General Patient Visit ___ Spiritual Assessment ___ Family Conference ___ Bereavement ___ Rapid Response ___ Code Blue ___ Other (describe below) Pastoral Care Referral From _x__ Patient ___ Family ___ Nurse ___ Physician ___ Model And Pattern Supervisor ___ Clearing Inspector ___ Other (describe below) Sacrament/Intervention ___ Active listening ___ Anointing ___ Advent ___ Bereavement ___ Communion ___ Roya exploration ___ ___ Life review ___ Prayer ___ Reconciliation ___ Sacrament of Sick _x__ Supportive presence ___ Wedding ___ Other (describe below) Pastoral Comments check in with patient who reports that he is doing fine and plans to stick with the [facility] program
--- NOTE | 2018-07-30 18:36 | NURSING ---
patient out to nurse's station stating he wants to leave AMA. offered medication to help treat symptoms. patient states has a friend that drove 2 hour to pick him up, stating he didn't think they would actually come. pt states plans to follow-up with therapy tomorrow as planned and states has a safe place to stay tonight. MD notified. [facility] notified.
--- NOTE | 2018-07-31 13:38 | DS.PCM_ITS ---
Discharge Date and Diagnosis Date of Admission: 07/28/18 Date of Discharge: 07/30/18 - Primary Discharge Diagnosis Acute opioid withdrawal. - Secondary Discharge Diagnosis Chronic Problems History of hepatitis A (Chronic) Hepatitis B antibody positive (Chronic) Heroin abuse (Chronic) Polysubstance abuse (Chronic) Nicotine abuse (Chronic) Hepatitis C (Chronic) Hospital Course and Treatment Operations: None Procedures: None Summary of Care Provided: Patient was seen and examined on the day when he left AGAINST MEDICAL ADVICE. He did complain that his symptoms are getting better but very slowly but he seemed to be okay. Later in the day, nursing staff contacted me and informed me that patient left the hospital AGAINST MEDICAL ADVICE. This is a 27-year-old male patient presented to the [facility] office requesting admission for acute opioid withdrawal for medical stabilization. He was admitted and started on [facility] protocol with tapering course of Subutex, as needed methocarbamol, Vistaril, Mirapex, Zofran, Catapres, Bentyl and methocarbamol. His routine blood work was unremarkable as well as LFT. His urine drug screen was positive for barbiturates and cocaine. Patient left the hospital AGAINST MEDICAL ADVICE. - Physical Exam General: Alert, Oriented x3, Cooperative HEENT: Atraumatic, PERRLA, EOMI, Normocephalic Oral: Moist Mucosa, No Gingival or Mucosal Lesions/ Ulcerations Neck: Supple, No JVD, Negative Carotid Bruits, Trachea Midline, Thyroid Normal Size and Texture Lungs: Clear to auscultation, Normal air movement, No rhonchi, No wheeze, No rales Cardiovascular: Regular rate, Regular Rhythm, Normal S1, Normal S2 Abdomen: Bowel Sounds Present, Soft, Non Tender, Non-Distended, No Hepato- splenomegaly Extremities: No clubbing, No cyanosis Skin: No rashes, No breakdown Lymphatic: No Cervical, Supraclavicular, or Inguinal Adenopathy Neurological: Cranial nerves II-XII grossly intact, Neuro grossly intact Psych/Mental Status: Anxious Vital Signs Temp Pulse Resp BP Pulse Ox 98.5 F 81 16 135/92 H 99 07/30/18 15:05 07/30/18 15:05 07/30/18 15:05 07/30/18 15:05 07/30/18 09:55 Oxygen Delivery Method Room Air Weight: 174 lb 2.643 oz Body Mass Index (BMI) 27.2 Intake and Output for Last 24 Hours 07/29/18 07/30/18 07/31/18 23:59 23:59 23:59 Intake Total 1080 / 1080 440 / 440 Balance 1080 / 1080 440 / 440 Home Medications: Medications to take at Discharge NK 07/28/18 Primary Care Physician: Care Physician,No Primary [Primary Care Provider] - Disposition: Against Medical Advice Minutes spent on discharge:: 25 Medical Necessity - Tobacco Use Smoking Status: Current every day smoker Tobacco Use: Secondhand Meaningful Use Info Meaningful Use Diagnoses (Choose all that apply): None applicable Code Visit Inpatient E&M: 04905 Disch Hosp
== END 2018-07-30 18:30 | disposition left against medical advice (07) | DRG 770 ==
PROVIDERS: Nurse Practitioner Family; Admitting Provider Internal Medicine; Referring Provider Internal Medicine; Visit Provider Hospitalist
DX: F11.23 Opioid dependence with withdrawal (principal); F19.10 Other psychoactive substance abuse, uncomplicated; F17.200 Nicotine dependence, unspecified, uncomplicated; B18.2 Chronic viral hepatitis C; Z59.0 Homelessness; Z86.19 Personal history of other infectious and parasitic diseases
CPT/HCPCS: 36415; 80053; 80307; 85025; 99218; G0378; G0379

== ENCOUNTER 2019-10-19 13:44 | Observation (INO) | payer MEDICAID, SELFPAY ==
[2018-07-28 16:54] VITALS: BMI 27.2
[2019-10-19 13:45] VITALS: BP 142/87; PULSE 97; RESP 16; TEMP 36.6; O2SAT 97; BMI 25.8
[2019-10-19 14:55] LABS: Alcohol, Blood (Medical)-Serum < 3.0 mg/dL
--- NOTE | 2019-10-19 14:56 | ED.DCSUM_ITS ---
- ER Visit Summary Date of Service: 10/19/19 Chief Complaint: Opiate withdrawal History of Present Illness: The patient is a 28 M with no primary care physician. He reports that he used heroin off and on for about 10 years. Last detox was 2 months ago. He did not go to a sober house after that. Reports that he was sober for a very short period of time. He has been using heroin IV approximately 1 g/day. His last use was yesterday. Patient reports that he does feel like he is in withdrawal. He is been nausea and vomited once. There is no blood in his emesis. Is after episodes of diarrhea. No blood in his stools. He has chills and sweats. Physical Examination: Vitals: Stable. Afebrile. General: Well-nourished and well-developed. Head: Normocephalic atraumatic. Neck: Supple, no lymphadenopathy. No JVD. Nontender. Cardiovascular: Regular rate and rhythm. No murmurs. Respiratory: No respiratory distress. Clear to auscultation bilaterally. Abdominal: Soft, nontender, nondistended, normal bowel sounds. No guarding, rebound, or peritoneal signs. Back: Nontender. Extremities: Nontender, no edema. Skin: Normal color, no rash. Multiple track gutierrez to the right hand without evidence of infection. There is no erythema, warmth, induration, or fluctuance. Neurologic: Alert and oriented ?3. Cranial nerves II through XII are intact. Normal strength and sensation. Psych: Normal affect. Test Results: Pending Emergency Department Course and Treatment: Patient is resting comfortably without complaint. Treatment Plan: Patient was discussed with Dr. Almonte. He will be admitted to the hospital for further evaluation and treatment. Disposition: Admitted in stable condition. Impression: 1. Opiate withdrawal. This note was generated with [employer] dictation software. It may contain incorrect words, spelling, and punctuation that were not noted in review of the chart prior to signing ED Disposition - Plan for ED Patient: Referrals: Care Physician,No Primary [Primary Care Provider] -
[2019-10-19 14:58] LABS: ALB/GLOB Ratio 0.9 RATIO (0.9-2.4); AST(SGOT) 41 U/L (15-37); Alanine Aminotransfer ALT/SGPT 53 U/L (16-61); Albumin, Serum 3.4 g/dL (3.2-5.0); Alkaline Phosphatase 71 U/L (45-117); Anion Gap 5 (5-15); BUN 10 mg/dL (7-18); BUN/Creat Ratio 14.1 RATIO (10-20); Calcium,Total 8.8 mg/dL (8.5-10.1); Chloride 105 mmol/L (98-107); Creatinine, Serum 0.71 mg/dL (0.70-1.30); EST Glomerular Filtration Rate 141 mL/min (>60); Est Glom Filt Rate - Afr Amer 171 mL/min (>60); Globulin 3.8 g/dL (2.2-4.2); Glucose 100 mg/dL (74-106); Potassium 4.1 mmol/L (3.5-5.1); Protein, Total 7.2 g/dL (6.4-8.2); Sodium Level 137 mmol/L (136-145)
[2019-10-19 15:08] LABS: Amphetamine Urine VISTA NEGATIVE (<1000 ng/mL); Barbiturate Urine VISTA NEGATIVE (< 200 ng/mL); Benzodiazepine Urine VISTA NEGATIVE (< 200 ng/mL); Cocaine Urine VISTA POSITIVE (< 300 ng/mL); Ecstacy Urine VISTA POSITIVE (< 500 ng/mL); Methadone Urine VISTA NEGATIVE (< 300 ng/mL); PCP Urine VISTA NEGATIVE (< 25 ng/mL); THC Urine VISTA POSITIVE (< 50 ng/mL); Vista UDS pH Range 5
--- NOTE | 2019-10-19 15:17 | CM.ED ---
Social Work Consult: Substance Abuse Informant: Self Referral due to reason for visit Chief Complaint: Patient requesting medical assistance for managing withdrawal symptoms. Patient states substance of choice is Heroine with last use being yesterday (10/18/2019). Marital/Social History: Single Living Situation: Lives with Parents Jc and Renzo Del Angel. Supports/Resources: Reports positive community support. Denies any active counseling or substance abuse supports that patient is involved in. Mental Health treatment/History: Denies. Denies any history of suicidal/homicidal thoughts/plans/intents. Substance Abuse/Use: Reports Heroine. Patient states last detox facility was a few months ago. Patient states history of both outpatient and inpatient treatment for substance abuse/use. Patient states to be seeking residential treatment for follow up care after completing [facility] at [facility]. Patient states its all set up at [facility] to [facility] in [facility]. Assessment: Met with patient in room. Introduced self and social economist role. Patient is agreeable to speaking with this social economist. Patient states to have gone over [facility] contract with ED nurse and has no questions about program. Telephone call to Batsheva Bassett. Updated Batsheva on patient being admitted to [facility] program. Batsheva voicing plan to come and complete assessment tomorrow with patient. PLAN: Admit to [facility] program. Sebas ALMENDAREZ, SCOTTIE
--- NOTE | 2019-10-19 15:29 | HP.PCM_ITS ---
Problem List (1) History of hepatitis A Status: Chronic (2) Hepatitis B antibody positive Status: Chronic (3) Acute opioid withdrawal Status: Acute (4) Heroin abuse Status: Chronic (5) Polysubstance abuse Status: Chronic (6) Nicotine abuse Status: Chronic (7) Hepatitis C Status: Chronic History of Present Illness Date of Admission: 10/19/19 Chief Complaint: diarrhea, rhinitis, abdominal cramps. The patient is a 28 year old M with h/o heroin abuse requesting treatment for heroin withdrawal so he can enter a treatment program in [place], [place]. Last use was around 2300 last evening. Since then, he has been experiencing abdominal cramps, rhinitis, yawning, restless legs--similar to withdrawal symptoms he has had before. He injects heroin in his wrist and neck. No lesions. [] Past Medical History Past Medical History (Chronic Problems): Chronic Problems History of hepatitis A (Chronic) Hepatitis B antibody positive (Chronic) Heroin abuse (Chronic) Polysubstance abuse (Chronic) Nicotine abuse (Chronic) Hepatitis C (Chronic) Allergies No Known Allergies Allergy (Verified 09/03/17 16:03) Home Medications: Ambulatory Orders Medication Instructions Recorded NK 07/28/18 Surgical History: tonsillectomy Psychiatric History: No pertinent psych hx Smoking Status: Current every day smoker - *Family History Paternal History Items: - - Denies known paternal medical history including cardiac history. Maternal History Items: Hypertension Review of Systems Constitutional: Denies: Anorexia, Chills, Fever Eyes: Denies: Blurred vision, Drainage HEENT: Reports: - - rhinitis. Denies: Head Aches, Sinus Congestion, Sinus Drainage Cardiovascular: Denies: Chest Pain, Palpitations Respiratory: Denies: Cough, Shortness of breath at rest, Sputum production Gastrointestinal: Reports: Abdominal Pain, Diarrhea Genitourinary: Denies: Dysuria Musculoskeletal: Denies: Joint Pain, Joint Tenderness Skin: Denies: Rash, Wounds Neurological: Denies: Numbness, Tingling, Focal weakness Psychiatric: Denies: Anxiety, Depression Hematologic/ Lymphatic: Denies: Easy Bruising, Easy Bleeding, Hx of blood clot VTE Information - Inpt Only VTE Present on Admission: No VTE Mechan Device Prophylaxis: None VTE Pharm Prophylaxis ordered?: No - Physical Exam Vitals/I&O's: Vital Signs Temp Pulse Resp BP Pulse Ox 36.6 C 97 16 142/87 H 97 10/19/19 13:45 10/19/19 13:45 10/19/19 13:45 10/19/19 13:45 10/19/19 13:45 Oxygen Delivery Method Room Air Weight: 77.111 kg Body Mass Index (BMI) 25.8 General: Alert, Cooperative, No apparent distress HEENT: Atraumatic, Normocephalic Oral: Moist Mucosa, No Gingival or Mucosal Lesions/ Ulcerations Neck: No Nodes, Thyroid Normal Size and Texture Lungs: Clear to auscultation, Normal air movement, No rhonchi, No wheeze, No rales Cardiovascular: Regular rate, Regular Rhythm, Normal S1, Normal S2, No murmurs Abdomen: Bowel Sounds Present, Soft, Non Tender, Non-Distended, No Hepato- splenomegaly Extremities: No edema, No Calf Tenderness Skin: No rashes, No breakdown, - - The injection sites noted that his wrist as well as in his neck but without any concern for abscess nor any lymphangitis. Psych/Mental Status: Normal Affect, Appropriate Laboratory Results 10/19/19 14:30: Sodium 137, Potassium 4.1, Chloride 105, Carbon Dioxide 27.0, Anion Gap 5, BUN 10, Creatinine 0.71, Estim Creat Clear Calc 151.20, Est GFR (MDRD) Af Amer 171, Est GFR (MDRD) Non-Af 141, BUN/Creatinine Ratio 14.1, Glucose 100, Calcium 8.8, Total Bilirubin 0.50, AST 41 H, ALT 53, Alkaline Phosphatase 71, Total Protein 7.2, Albumin 3.4, Globulin 3.8, Albumin/Globulin Ratio 0.9 10/19/19 14:30: Ethyl Alcohol < 3.0 10/19/19 14:50: Urine Opiates Screen POSITIVE H, Urine Methadone Screen NEGATIVE, Ur Barbiturates Screen NEGATIVE, Ur Phencyclidine Scrn NEGATIVE, Ur Amphetamines Screen NEGATIVE, U Methamphetamin-MDMA POSITIVE H, U Benzodiazepines Scrn NEGATIVE, Urine Cocaine Screen POSITIVE H, U Cannabinoids Screen POSITIVE H, Ur Drug Screen Comment Assessment/Plan All Active Problems Acute opioid withdrawal (Acute) 1. Acute opiate withdrawal: Patient be initiated on a buprenorphine taper which will take him through the . Patient also have other medications as needed for other somatic complaints associated with his withdrawal. Patient states that he has been established with a facility in [facility] and I will take him once he has completed his withdrawal treatment here. 2. VTE prophylaxis: Low risk. Inpatient E&M: 12644 Init Hosp L2
[2019-10-19 16:14] VITALS: BP 136/78; PULSE 91; RESP 15; TEMP 36.7; O2SAT 98
[2019-10-19 16:18] VITALS: BMI 27.8; BMI 27.9
[2019-10-19 16:31] VITALS: BP 123/82; PULSE 76; RESP 18; TEMP 36.6; O2SAT 98
[2019-10-19 19:44] VITALS: BP 117/70; PULSE 71; RESP 16; TEMP 36.6; O2SAT 100
[2019-10-20 00:38] VITALS: BP 133/96; PULSE 89; RESP 16; TEMP 36.6; O2SAT 99
[2019-10-20] MEDS: traZODone 100 MG Tablet PO ×2 (00:51→19:20)
[2019-10-20] MEDS: Dicyclomine 10 MG Capsule 20 MG PO (00:51)
[2019-10-20] MEDS: cloNIDine HCl 0.1 MG Tablet PO (00:51)
[2019-10-20] MEDS: Buprenorphine HCl 2 MG TAB.SUBL SL ×3 (00:52→17:38)
[2019-10-20 04:58] VITALS: BP 108/59; PULSE 64; RESP 16; TEMP 36.8; O2SAT 98
--- NOTE | 2019-10-20 13:13 | PN_ITS ---
<Ani Ashraf - Last Filed: 10/20/19 13:18> Subjective: Patient seen and examined. Drowsy. Denies significant withdrawal symptoms. - Physical Exam Vitals/I&O's: Vital Signs Temp Pulse Resp BP Pulse Ox 98.3 F 64 16 108/59 L 98 10/20/19 04:58 10/20/19 04:58 10/20/19 04:58 10/20/19 04:58 10/20/19 04:58 Oxygen Delivery Method Room Air Weight: 183 lb 4.677 oz Body Mass Index (BMI) 27.8 Intake and Output for Last 24 Hours 10/18/19 10/19/19 10/20/19 23:59 23:59 23:59 Intake Total 1550 / 1550 400 / 400 Balance 1550 / 1550 400 / 400 General: Alert, Oriented x3, Cooperative HEENT: Atraumatic, PERRLA, EOMI, Normocephalic Neck: Supple, No JVD, Negative Carotid Bruits Lungs: Clear to auscultation, Normal air movement Cardiovascular: Regular rate, No murmurs Abdomen: Bowel Sounds Present, Soft, Non Tender Extremities: No clubbing, No cyanosis, No edema, Capillary Refill Less than 3 Seconds Skin: No rashes, No breakdown Musculoskeletal: No Tenderness to Palpation of Joints or Extremities Neurological: Cranial nerves II-XII grossly intact, Neuro grossly intact Psych/Mental Status: Normal Affect, Appropriate Laboratory Results 10/19/19 14:30: Sodium 137, Potassium 4.1, Chloride 105, Carbon Dioxide 27.0, Anion Gap 5, BUN 10, Creatinine 0.71, Estim Creat Clear Calc 151.20, Est GFR (MDRD) Af Amer 171, Est GFR (MDRD) Non-Af 141, BUN/Creatinine Ratio 14.1, Glucose 100, Calcium 8.8, Total Bilirubin 0.50, AST 41 H, ALT 53, Alkaline Phosphatase 71, Total Protein 7.2, Albumin 3.4, Globulin 3.8, Albumin/Globulin Ratio 0.9 10/19/19 14:30: Ethyl Alcohol < 3.0 10/19/19 14:50: Urine Opiates Screen POSITIVE H, Urine Methadone Screen NEGATIVE, Ur Barbiturates Screen NEGATIVE, Ur Phencyclidine Scrn NEGATIVE, Ur Amphetamines Screen NEGATIVE, U Methamphetamin-MDMA POSITIVE H, U Benzodiazepines Scrn NEGATIVE, Urine Cocaine Screen POSITIVE H, U Cannabinoids Screen POSITIVE H, Ur Drug Screen Comment Current Medications Acetaminophen (Tylenol) 500 mg PO Q4H PRN PRN PRN Reason: Temp > 100.4 F Al Hydroxide/Mg Hydroxide (Mylanta Ii) 30 ml PO Q6H PRN PRN PRN Reason: dyspesia Bisacodyl (Dulcolax) 10 mg RECTAL DAILY PRN PRN Reason: Constipation Buprenorphine HCl (Buprenorphine Hcl) 4 mg SL Q8H KATHE; Taper Stop: 10/23/19 00:59 Last Admin: 10/20/19 09:04 Dose: 4 mg Documented by: Clonidine (Catapres) 0.1 mg PO Q8H PRN PRN PRN Reason: RESTLESSNESS Last Admin: 10/20/19 00:51 Dose: 0.1 mg Documented by: Dicyclomine HCl (Bentyl) 20 mg PO Q6H PRN PRN PRN Reason: Abdominal Discomfort Last Admin: 10/20/19 00:51 Dose: 20 mg Documented by: Gabapentin (Neurontin) 300 mg PO Q8H PRN PRN PRN Reason: moderate to severe anxiety Hydroxyzine Pamoate (Vistaril Pamoate Capsule) 50 mg PO Q6H PRN PRN PRN Reason: mild anxiety Ibuprofen (Motrin) 600 mg PO Q8H PRN PRN PRN Reason: Pain Score 1-10/10 Loperamide HCl (Imodium) 2 mg PO Q4H PRN PRN PRN Reason: LOOSE STOOLS Methocarbamol (Methocarbamol) 1,500 mg PO Q6H PRN PRN PRN Reason: MUSCLE SPASM Nicotine (Nicoderm Cq (Pbkc)) 21 mg TRANSDERM. DAILY KATHE Last Admin: 10/20/19 09:04 Dose: 21 mg Documented by: Ondansetron HCl (Zofran) 8 mg PO Q8H PRN PRN PRN Reason: NAUSEA Senna (Senokot) 2 tablet PO QHS PRN PRN Reason: Constipation Trazodone HCl (Desyrel) 100 mg PO QHS PRN PRN PRN Reason: INSOMNIA Last Admin: 10/20/19 00:51 Dose: 100 mg Documented by: Medical Necessity - Tobacco Use Smoking Status: Current every day smoker Assessment/Plan All Active Problems Acute opioid withdrawal (Acute) 1. Acute opiate withdrawal-on buprenorphine taper. PRN regimen for somatic complaints. Tox screen positive for opiates, methamphetamine, cocaine, cannabinoids. 2. Tobacco dependence-encouraged cessation. Nicotine replacement patch. DVT prophylaxis-not indicated, low risk This patient was seen by RICKEY Bradford under the supervision of Dr. Gregory. <Arjun Gregory F - Last Filed: 10/20/19 13:48> - Physical Exam Vitals/I&O's: Vital Signs Temp Pulse Resp BP Pulse Ox 98.3 F 64 16 108/59 L 98 10/20/19 04:58 10/20/19 04:58 10/20/19 04:58 10/20/19 04:58 10/20/19 04:58 Oxygen Delivery Method Room Air Weight: 183 lb 4.677 oz Body Mass Index (BMI) 27.8 Intake and Output for Last 24 Hours 10/18/19 10/19/19 10/20/19 23:59 23:59 23:59 Intake Total 1550 / 1550 400 / 400 Balance 1550 / 1550 400 / 400 Laboratory Results 10/19/19 14:30: Sodium 137, Potassium 4.1, Chloride 105, Carbon Dioxide 27.0, Anion Gap 5, BUN 10, Creatinine 0.71, Estim Creat Clear Calc 151.20, Est GFR (MDRD) Af Amer 171, Est GFR (MDRD) Non-Af 141, BUN/Creatinine Ratio 14.1, Glucose 100, Calcium 8.8, Total Bilirubin 0.50, AST 41 H, ALT 53, Alkaline Phosphatase 71, Total Protein 7.2, Albumin 3.4, Globulin 3.8, Albumin/Globulin Ratio 0.9 10/19/19 14:30: Ethyl Alcohol < 3.0 10/19/19 14:50: Urine Opiates Screen POSITIVE H, Urine Methadone Screen NEGATIVE, Ur Barbiturates Screen NEGATIVE, Ur Phencyclidine Scrn NEGATIVE, Ur Amphetamines Screen NEGATIVE, U Methamphetamin-MDMA POSITIVE H, U Benzodiazepines Scrn NEGATIVE, Urine Cocaine Screen POSITIVE H, U Cannabinoids Screen POSITIVE H, Ur Drug Screen Comment Current Medications Acetaminophen (Tylenol) 500 mg PO Q4H PRN PRN PRN Reason: Temp > 100.4 F Al Hydroxide/Mg Hydroxide (Mylanta Ii) 30 ml PO Q6H PRN PRN PRN Reason: dyspesia Bisacodyl (Dulcolax) 10 mg RECTAL DAILY PRN PRN Reason: Constipation Buprenorphine HCl (Buprenorphine Hcl) 4 mg SL Q8H KATHE; Taper Stop: 10/23/19 00:59 Last Admin: 10/20/19 09:04 Dose: 4 mg Documented by: Clonidine (Catapres) 0.1 mg PO Q8H PRN PRN PRN Reason: RESTLESSNESS Last Admin: 10/20/19 00:51 Dose: 0.1 mg Documented by: Dicyclomine HCl (Bentyl) 20 mg PO Q6H PRN PRN PRN Reason: Abdominal Discomfort Last Admin: 10/20/19 00:51 Dose: 20 mg Documented by: Gabapentin (Neurontin) 300 mg PO Q8H PRN PRN PRN Reason: moderate to severe anxiety Hydroxyzine Pamoate (Vistaril Pamoate Capsule) 50 mg PO Q6H PRN PRN PRN Reason: mild anxiety Ibuprofen (Motrin) 600 mg PO Q8H PRN PRN PRN Reason: Pain Score 1-10/10 Loperamide HCl (Imodium) 2 mg PO Q4H PRN PRN PRN Reason: LOOSE STOOLS Methocarbamol (Methocarbamol) 1,500 mg PO Q6H PRN PRN PRN Reason: MUSCLE SPASM Nicotine (Nicoderm Cq (Pbkc)) 21 mg TRANSDERM. DAILY KATHE Last Admin: 10/20/19 09:04 Dose: 21 mg Documented by: Ondansetron HCl (Zofran) 8 mg PO Q8H PRN PRN PRN Reason: NAUSEA Senna (Senokot) 2 tablet PO QHS PRN PRN Reason: Constipation Trazodone HCl (Desyrel) 100 mg PO QHS PRN PRN PRN Reason: INSOMNIA Last Admin: 10/20/19 00:51 Dose: 100 mg Documented by: Addendum: Dr. Gregory I personally examined the patient and reviewed the chart. I agree with the above. 28-year-old presenting for acute opiate withdrawal from heroin and polysubstance abuse. He has injection sites on his wrist as well as his neck that were not felt to be infected on admission. He is tolerating the medications for withdrawal and states that he has been established with a facility in [facility] and that is where he will go once his acute detox has co mpleted. Did also test positive for cocaine, meth, and marijuana use. Inpatient E&M: 17455 Subs Hosp L2
--- NOTE | 2019-10-20 14:35 | ADDICTION ---
This engineering writer met with patient, in his room, to assess ASAM and to begin discharge planning. Patient states that his last use was on 10/19/2019 prior to coming into the ER for medical withdrawal management. He reports ongoing, daily use of heroin and intermittent use of cocaine/crack. He reports that he plans to directly admit into [facility] in [place], [place] after completing the BUP taper with [facility] and was not agreeable to this engineering writer contacting [facility] to [facility] or other treatment agencies in [facility] stating that ?I have a plan and I can take care of everything once I get to [facility]?. He was provided information regarding available resources for those in recovery and active addiction, for MH barriers and a Discharge Plan to complete prior to this engineering writer?s next visit planned for 10/21/2019. Patient was alert and oriented throughout this session and was amiable to completing the ASAM assessment, Release of Information (for [employer]), MSE and DUDIT. This engineering writer will continue with discharge planning at next visit. ASAM LOC RECOMMENDATION: 4.0 Medically Managed Intensive Inpatient Services Acute Intoxication and/or Withdrawal Potential Last use date: 10/19/2019- IV heroin. Patient reports a history of severe withdrawal symptoms including: anxiety, irritability, pain, hot and cold flashes, swelling, nausea and vomiting, Currenty on Buprenorphine taper to manage withdrawal symptoms. Will likely experience severe withdrawal symptoms if taper is not completed. Biomedical Conditions/Complications Patient?s chart indicated a history of Hepatitis A, Hepatitis B and Hepatitis C. Patient reports these were likely from IV heroin use. Patient reports that he does not have a PCP and refused PCP referral. Patient appears medically stable at this time. Emotional, Behavioral or Cognitive Conditions and Complications Patient reports depression and anxiety symptoms and identified that these symptoms worsen with AoD use and withdrawal. Patient reports no SI or HI. Patient was oriented x4 and presented with euthymic mood and broad affect. Readiness to Change Patient has limited awareness of negative consequences of AoD use. Patient reports very limited knowledge of addiction. Patient appears to be in the contemplation stage of change as evidenced by his identification of problem behaviors without active planning to change / modify problem behaviors outside of treatment. Relapse, Continued Use or Continued Problem Potential Patient reports history of severe withdrawal symptoms with no ability to cope with symptoms. Patient has little recognition of relapse potential. Patient was using IV heroin daily and reports barriers to impulse control. Recovery/Living Environment Patient lives with parents, in [place], [place]. Patient reports active heroin use in the home. Patient reports that his parents were aware of his AoD use. Patient reports that AoD is readily available to him and is easily obtained. Patient reported no AA or NA engagement. Patient reports no hoahaoism affiliation. Patient is self-employed. Patient reports no sober support.
--- NOTE | 2019-10-20 16:02 | CHAPLAIN ---
Type of Pastoral Visit _x__ Initial Visit ___ Follow-up Visit ___ On-call Visit ___ General Patient Visit ___ Spiritual Assessment ___ Family Conference ___ Bereavement ___ Rapid Response ___ Code Blue ___ Other (describe below) Pastoral Care Referral From _x__ Patient ___ Family ___ Nurse ___ Physician ___ Supervising Nurse ___ Bereavement Counselor ___ Other (describe below) Sacrament/Intervention _x__ Active listening ___ Anointing ___ Jew ___ Bereavement ___ Communion ___ Roya exploration ___ ___ Life review _x__ Prayer ___ Reconciliation ___ Sacrament of Sick _x__ Supportive presence ___ Wedding ___ Other (describe below) Pastoral Comments patient is a repeat pt in the [facility]; pt is sitting in bed and receptive to 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
[2019-10-20 17:45] VITALS: BP 144/89; PULSE 80; RESP 16; TEMP 37.1; O2SAT 100
[2019-10-20] MEDS: Ibuprofen 600 MG Tablet PO (19:20)
[2019-10-20] MEDS: hydrOXYzine PAM 25 MG Capsule 50 MG PO (19:20)
[2019-10-20 23:55] VITALS: BP 140/89; PULSE 75; RESP 16; TEMP 36.6; O2SAT 99
[2019-10-21] MEDS: Buprenorphine HCl 2 MG TAB.SUBL SL ×2 (00:12→09:13)
[2019-10-21 03:25] VITALS: BP 125/77; PULSE 64; RESP 16; TEMP 36.6; O2SAT 99
[2019-10-21 09:17] VITALS: BP 124/88; PULSE 87; RESP 16; TEMP 36.4; O2SAT 97
[2019-10-21] MEDS: Methocarbamol 750 MG Tablet 1500 MG PO (09:24)
[2019-10-21] MEDS: hydrOXYzine PAM 25 MG Capsule 50 MG PO (09:24)
[2019-10-21] MEDS: Dicyclomine 10 MG Capsule 20 MG PO (09:24)
[2019-10-21] MEDS: cloNIDine HCl 0.1 MG Tablet PO (09:24)
--- NOTE | 2019-10-21 12:17 | NURSING ---
went in pt's room to chack on him after being told her wanted to leave - was unable to talk pt into finishing the program- he really didn'y have a reason for leaving - just that he wanted to go---- dr chen aware and candido faulkner was just going into see pt and she was aware at that time that pt was leaving-
--- NOTE | 2019-10-21 12:21 | PCM.DC.SUM ---
<Ani Ashraf - Last Filed: 10/21/19 12:29> Discharge Date and Diagnosis Date of Admission: 10/19/19 Date of Discharge: 10/21/19 - Primary Discharge Diagnosis Acute Problems: 1. Acute opiate withdrawal 2. Tobacco dependence 3. Polysubstance abuse - Secondary Discharge Diagnosis Chronic Problems: Chronic Problems History of hepatitis A (Chronic) Hepatitis B antibody positive (Chronic) Heroin abuse (Chronic) Polysubstance abuse (Chronic) Nicotine abuse (Chronic) Hepatitis C (Chronic) Hospital Course and Treatment Operations: None Procedures: None Summary of Care Provided: The patient is a 28 year old M admitted 10/19/2019 due to diarrhea, abdominal cramps, opioid withdrawal. 1. Acute opiate withdrawal-on buprenorphine taper during admission. Tox screen positive for opiates, methamphetamine, cocaine, cannabinoids. [employer] met with patient and patient noted to have limited readiness to change. Patient left AGAINST MEDICAL ADVICE on day 2 of medical stabilization protocol. Patient has had multiple admissions in various medical stabilization programs. He currently lives in an environment where drug use is present and readily available to him. During discussion with patient he is very nonchalant about not completing recommended program and recovery plan at discharge. 2. Tobacco dependence-encouraged cessation. 3. Polysubstance abuse-as noted on tox screen above. Patient seen and examined prior to discharge. Physical assessment as noted below. As noted above, patient left AGAINST MEDICAL ADVICE prior to completing medical stabilization program. This patient was seen by RICKEY Bradford under the supervision of Dr. Gregory. - Physical Exam Vitals/I&O's: Vital Signs Temp Pulse Resp BP Pulse Ox 97.6 F L 87 16 124/88 H 97 10/21/19 09:17 10/21/19 09:17 10/21/19 09:17 10/21/19 09:17 10/21/19 09:17 Oxygen Delivery Method Room Air Weight: 183 lb 4.677 oz Body Mass Index (BMI) 27.8 Intake and Output for Last 24 Hours 10/19/19 10/20/19 10/21/19 23:59 23:59 23:59 Intake Total 1550 / 1550 1360 / 1360 300 / 300 Balance 1550 / 1550 1360 / 1360 300 / 300 General: Alert, Oriented x3, Cooperative HEENT: Atraumatic, PERRLA, EOMI, Normocephalic Neck: Supple, No JVD, Negative Carotid Bruits Lungs: Clear to auscultation, Normal air movement Cardiovascular: Regular rate, No murmurs Abdomen: Bowel Sounds Present, Soft, Non Tender Extremities: No clubbing, No cyanosis, No edema Skin: No rashes, No breakdown Musculoskeletal: No Tenderness to Palpation of Joints or Extremities Neurological: Cranial nerves II-XII grossly intact, Neuro grossly intact Psych/Mental Status: Normal Affect Current Medications Acetaminophen (Tylenol) 500 mg PO Q4H PRN PRN PRN Reason: Temp > 100.4 F Al Hydroxide/Mg Hydroxide (Mylanta Ii) 30 ml PO Q6H PRN PRN PRN Reason: dyspesia Bisacodyl (Dulcolax) 10 mg RECTAL DAILY PRN PRN Reason: Constipation Buprenorphine HCl (Buprenorphine Hcl) 2 mg SL Q8H KATHE; Taper Stop: 10/23/19 00:59 Last Admin: 10/21/19 09:13 Dose: 2 mg Documented by: Clonidine (Catapres) 0.1 mg PO Q8H PRN PRN PRN Reason: RESTLESSNESS Last Admin: 10/21/19 09:24 Dose: 0.1 mg Documented by: Dicyclomine HCl (Bentyl) 20 mg PO Q6H PRN PRN PRN Reason: Abdominal Discomfort Last Admin: 10/21/19 09:24 Dose: 20 mg Documented by: Gabapentin (Neurontin) 300 mg PO Q8H PRN PRN PRN Reason: moderate to severe anxiety Hydroxyzine Pamoate (Vistaril Pamoate Capsule) 50 mg PO Q6H PRN PRN PRN Reason: mild anxiety Last Admin: 10/21/19 09:24 Dose: 50 mg Documented by: Ibuprofen (Motrin) 600 mg PO Q8H PRN PRN PRN Reason: Pain Score 1-10/10 Last Admin: 10/20/19 19:20 Dose: 600 mg Documented by: Loperamide HCl (Imodium) 2 mg PO Q4H PRN PRN PRN Reason: LOOSE STOOLS Methocarbamol (Methocarbamol) 1,500 mg PO Q6H PRN PRN PRN Reason: MUSCLE SPASM Last Admin: 10/21/19 09:24 Dose: 1,500 mg Documented by: Nicotine (Nicoderm Cq (Pbkc)) 21 mg TRANSDERM. DAILY KATHE Last Admin: 10/21/19 09:13 Dose: 21 mg Documented by: Ondansetron HCl (Zofran) 8 mg PO Q8H PRN PRN PRN Reason: NAUSEA Senna (Senokot) 2 tablet PO QHS PRN PRN Reason: Constipation Trazodone HCl (Desyrel) 100 mg PO QHS PRN PRN PRN Reason: INSOMNIA Last Admin: 10/20/19 19:20 Dose: 100 mg Documented by: Home Medications: Medications to take at Discharge NK 07/28/18 Primary Care Physician: Care Physician,No Primary [Primary Care Provider] - Disposition: Against Medical Advice Minutes spent on discharge:: 35 Patient Condition:: Stable Medical Necessity - Tobacco Use Smoking Status: Current every day smoker Meaningful Use Info Meaningful Use Diagnoses (Choose all that apply): None applicable <Arjun Gregory F - Last Filed: 10/21/19 16:49> Discharge Date and Diagnosis - Secondary Discharge Diagnosis Chronic Problems: Chronic Problems History of hepatitis A (Chronic) Hepatitis B antibody positive (Chronic) Heroin abuse (Chronic) Polysubstance abuse (Chronic) Nicotine abuse (Chronic) Hepatitis C (Chronic) Hospital Course and Treatment Summary of Care Provided: The patient is a 28 year old M [] - Physical Exam Vitals/I&O's: Vital Signs Temp Pulse Resp BP Pulse Ox 97.6 F L 87 16 124/88 H 97 10/21/19 09:17 10/21/19 09:17 10/21/19 09:17 10/21/19 09:17 10/21/19 09:17 Oxygen Delivery Method Room Air Weight: 183 lb 4.677 oz Body Mass Index (BMI) 27.8 Intake and Output for Last 24 Hours 10/19/19 10/20/19 10/21/19 23:59 23:59 23:59 Intake Total 1550 / 1550 1360 / 1360 300 / 300 Balance 1550 / 1550 1360 / 1360 300 / 300 Addendum: Dr. Gregory I personally examined the patient and reviewed the chart. I agree with the above. 28-year-old presenting for acute opiate withdrawal from heroin and polysubstance abuse. He has injection sites on his wrist as well as his neck that were not felt to be infected on admission. He is tolerating the medications for withdrawal and states that he has been established with a facility in [facility] and that is where he will go once his acute detox has completed. Did also test positive for cocaine, meth, and marijuana use. 10/21/2019: Feeling better today and therefore he decided to leave AMA. Discussed with him the risks of leaving early he expressed understanding. Inpatient E&M: 52035 Disch Hosp
== END 2019-10-21 12:13 | disposition left against medical advice (07) ==
LOC: ED 14:20 → MS3 19:46
PROVIDERS: Emergency Provider Emergency Medicine; Visit Provider Family Medicine
DX: F11.23 Opioid dependence with withdrawal (principal); Z86.19 Personal history of other infectious and parasitic diseases; B18.2 Chronic viral hepatitis C; F17.200 Nicotine dependence, unspecified, uncomplicated; F15.10 Other stimulant abuse, uncomplicated; F14.10 Cocaine abuse, uncomplicated; F12.10 Cannabis abuse, uncomplicated
CPT/HCPCS: 80053; 80307; 80320; 97802; 99283; H0012; G0480